=== PATIENT | female | born 1975 | race Caucasian/White ===

== ENCOUNTER 2017-10-11 10:36 | Emergency (ER) | payer OTHER ==
--- OUTSIDE RECORDS SUMMARY | 2017-10-11 10:38 | XMS REPORT | Clinical Summary ---
:1975 Author Organization [facility] Address [address] [place] [address] Care Team Providers Name Role Phone Asked, No Pcp Primary Care Provider Unavailable Allergies Active Allergy Reactions Severity Noted Date Comments Amoxicillin 09/30/2017 Erythromycin 09/30/2017 Current Medications Not on file Active Problems Not on file Encounters Date Type Specialty Care Team Description 10/01/2017 Emergency Emergency Medicine Hiram Jimenez Benzodiazepine abuse MD Javier (Primary Dx) 09/30/2017 Emergency Emergency Medicine Red Olson Anxiety ( Primary Dx); DO Medication refill after 10/10/2016 Social History Tobacco Use Types Packs/Day Years Used Date Current Every Day Smoker Smokeless Tobacco: Never Used Sex Assigned at Date Recorded Not on file Last Filed Vital Signs Vital Sign [place] Time Taken Blood Pressure 115/57 10/01/2017 11:12 AM [employer] Pulse 77 10/01/2017 11:12 AM [employer] Temperature 36.9 C (98.5 F) 10/01/2017 11:12 AM [employer] Respiratory Rate 18 10/01/2017 11:12 AM [employer] Oxygen Saturation 98% 10/01/2017 11:12 AM [employer] Inhaled Oxygen Concentration - - Weight - - Height 162.6 cm (5' 4") 10/01/2017 11:14 AM [employer] Body Mass Index - - Plan of Treatment Not on file Results ECG ED Preliminary Interpretation - NOT AN ORDER (10/01/2017 11:46 AM) Narrative Hiram Jimenez MD 10/02/20178:17 PM ECG ED Preliminary Interpretation - Not an Order Performed by: HIRAM JIMENEZ Authorized by: HIRAM JIMENEZ ECG reviewed by ED Physician in the absence of a calender wind up helper: yes Previous ECG: Previous ECG:Unavailable Interpretation: Interpretation: normal Rate: ECG rate:74 ECG rate assessment: normal Rhythm: Rhythm: sinus rhythm Ectopy: Ectopy: none QRS: QRS axis:Normal QRS intervals:Normal Conduction: Conduction: normal ST segments: ST segments:Normal T waves: T waves: normal ECG 12 lead (10/01/2017 11:21 AM)Only the most recent of2 resultswithin the time period is included. Component Value Ref Range Ventricular rate 74 Atrial rate 74 VA interval 184 QRSD interval 98 QT interval 428 QTC interval 475 P axis 1 29 QRS axis 1 7 T wave axis 12 EKG impression Normal sinus rhythm-Minimal voltage criteria for LVH, may be normal variant-Cannot rule out Anterior infarct , age undetermined-Abnormal ECG- In automated comparison with ECG of 30-SEP-2017 15:58,-No sig nificant change was found- Specimen Performing Laboratory [facility] [id number] [place] [address] after 10/10/2016 Insurance Payer Benefit Plan / Group Subscriber ID Type Phone Address MEDICAID MEDICAID xxxxxxxxx Medicaid Home: [id number] [phone] [place] [phone]
--- OUTSIDE RECORDS SUMMARY | 2017-10-11 10:38 | XMS REPORT ---
:1975 [facility] [address] [place] [address] Care Team Providers Name Role Phone UNKNOWN, REFFERING Primary Care Provider Unavailable Kyle RODAS Unavailable Unavailable ROBERTS, PHOEBE STORM Unavailable Unavailable Problems This patient has no known problems. Allergies, Adverse Reactions, Alerts This patient has no known allergies or adverse reactions. Medications This patient has no known medications. Encounters Start End Encounter Admission Attending Care Care Encounter Date/Time Date/Time Type Type Clinicians Facility Department ID 2017-10-22 2017-10-22 Outpatient [facility] [id number] 00:00:00 00:00:00 2017-10-01 2017-10-01 Emergency [facility] [id number] 13:59:00 13:59:00 CARA 2017-09-30 2017-09-30 Emergency [facility] [id number] 05:54:41 05:54:41 2017-09-29 2017-09-29 [facility] [id number] 18:37:00 18:37:00 2017-09-29 2017-09-29 Emergency E [facility] [id number] 16:00:00 16:00:00 Results Test Description Test Time Test Comments Text Results Atomic Results Result Comments BHCG, Serum, Qualitative 2017-10-01 16:02:00 Test Item Value Reference Range Comments Preg Qual [Se] (test code=BSHCG) Negative Negative Comprehensive Metabolic [id number] 16:01:00 Test Item Value Reference Range Comments Sodium (test code=NA) 141 mmol/L 135-145 Potassium (test code=K) 4.7 mmol/L 3.5-5.1 Chloride (test code=CL) 99 mmol/L 98-105 Carbon Dioxide (test 29 mmol/L 22-29 code=CO2) Glucose (test code=GLU) 148 mg/dL 70-115 Blood Urea Nitrogen 12 mg/dL 6-20 (test code=BUN) Creatinine (test 1.0 mg/dL 0.5-0.9 code=CREAT) Calcium (test code=CA) 9.9 mg/dL 8.3-10.5 Prot Total (test 8.5 g/dL 6.4-8.3 code=TP) Albumin (test code=ALB) 4.3 g/dL 3.5-5.2 A/G Ratio (test 1.0 Ratio code=AGRATIO) Globulin (test 4.2 2.9-3.1 code=GLOB) Bili Total (test 0.4 mg/dL 0.1-0.9 code=TBIL) Alk Phos (test 115 U/L 35-104 code=APHOS) AST (test code=AST) 20 U/L 1-32 ALT (test code=ALT) 21 U/L 1-33 BUN/Creatinine Ratio 12.0 (test code=BCRATIO) Anion Gap (test 13 mmol/L 7-16 code=AGAP) Estimated GFR (test >60 eGFR (estimated Glomerular code=GFR) mL/min/1.73m2 Filtration Rate) is an estimated value,calculated from the patient's serum creatinine using the MDRD equation.It is NOT the patient's actual GFR. The eGFR provides a more clinicallyuseful measure of kidney disease than serum creatinine alone.This calculation takes sex and race into account, if the informationis provided. If the race is not provided, and the patient isAfrican-Honduran, multiply by 1.212. If sex is not provided, and thepatient is female, multiply by 0.742. Results for patients <18 years ofage have not been validated by the MDRD study and should be interpretedwith caution.eGFR Result Interpretation:eGFR > or=60 is in the Normal RangeeGFR < 60 may mean kidney diseaseeGFR < 15 may mean kidney failureRanges recommended by the National Kidney Foundation,http://nkdep.ni h.gov CBC with [id number] 15:19:00 Test Item Value Reference Range Comments WBC (test code=WBC) 8.8 K/cumm 4.4-10.5 RBC (test code=RBC) 4.66 M/cumm 3.75-5.20 Hemoglobin (test code=HGB) 13.9 gm/dL 12.2-14.8 Hematocrit (test code=HCT) 42.3 % 36.5-44.4 MCV (test code=MCV) 90.7 fL 80-100 MCH (test code=MCH) 29.8 pg 27.0-32.5 MCHC (test code=MCHC) 32.8 g/dL 32.0-37.5 RDW (test code=RDW) 13.1 % 11.5-14.5 Platelet Count (test code=PLTCT) 467 K/cumm 140-440 MPV (test code=MPV) 7.6 fL Diff Method (test code=DIFFM) Auto Neutrophil (test code=NEUT) 66.9 % 36-70 Lymphocyte (test code=LYMPH) 26.7 % 12-44 Monocyte (test code=MONO) 5.2 % 0-11 Eosinophil (test code=EOS) 0.6 % 0-7 Basophil (test code=BASO) 0.5 % 0-2 Neutro Abs (test code=ANEUT) 5.9 K/cumm 1.6-7.4 Lymph Abs (test code=ALYMPH) 2.3 K/cumm 0.5-4.6 [place] Abs (test code=AMONO) 0.5 K/cumm 0.0-1.2 Eos Abs (test code=AEOS) 0.05 K/cumm 0.00-0.74 Baso Abs (test code=ABASO) 0.1 K/cumm 0.00-0.21 TISSUE [id number] 08:45:00Surgical Pathology Report Case: [id number] Authorizing Provider: Kelsie Roberts MD Collected: 04/03/2017 9686 Ordering Location: [facility] Received: 04/03/2017 1404 SERVICES Pathologist: Noris Rogers MD Specimens: A) - Ovary, Left, LEFT OVARY B) - Uterus w/Cervix & Right Fallopian Tube, UTERUS, CERVIX, RIGHT FALLOPIAN C) - Appendix, APPENDIX D) - Lymph Node, Para- Aortic, Right, Station 6R, PARA AORTIC RIGHT STATION 6R E) - Lymph Node, Pelvic, Left, LEFT PELVIC LYMPH NODE F) - Lymph Node, Para-Aortic, Left, Station 6L, PARA AORTIC LEFT STATION 6L G) - Omentum, OMENTUM H) - Lymph Node, Pelvic , Right, RIGHT PELVIC LYMPH NODE I) - Cul-de-sac, ANTERIOR CUL-DE-SAC J) - Cul-de-sac, POSTERIOR CUL-DE-SAC K) - Pelvis, Right, RIGHT PELVIC SIDE-WALL L) - Pelvis, Left, LEFT PELVIC SIDE WALL M) - Abdomen, Left, LEFT PARA-COLIC N) - Abdomen, Right, RIGHT PARA-COLIC O) - Ovary, Right A. OVARY AND FALLOPIAN TUBE, LEFT, SALPINGOOOPHORECTOMY: -OVARY: SEROUS BORDERLINE TUMOR SEE TUMOR SYNOPSIS BELOW FOR DETAILS - FALLOPIAN TUBE : PARATUBAL CYSTS NEGATIVE FOR TUMORB. UTERUS AND CERVIX WITH RIGHT FALLOPIAN TUBE, HYSTERECTOMY AND SALPINGECTOMY: - ENDOMETRIUM: SECRETORY ENDOMETRIUM - MYOMETRIUM: ADENOMYOSIS - CERVIX: NABOTHIAN CYSTS - RIGHT FALLOPIAN TUBE: PARATUBAL CYSTSC. 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 LYMPH NODE, RIGHT PARAAORTIC STATION 6R, EXCISION: ENDOSALPINGIOSIS INVOLVING ONE LYMPH NODE, NEGATIVE FOR TUMOR (0/1)E. LYMPH NODE , LEFT PELVIC, EXCISION: FIFTEEN LYMPH NODES, NEGATIVE FOR TUMOR (0/15)F. LYMPH NODE, PARAAORTIC LEFT STATION 6L, EXCISION: FOUR LYMPH NODES, NEGATIVE FOR TUMOR(0/4)G. OMENTUM, OMENTECTOMY: FIBROADIPOSE TISSUE, NEGATIVE FOR TUMORH. LYMPH NODE, RIGHT PELVIC,EXCISION: EIGHTEEN LYMPH NODES, NEGATIVE FOR TUMOR (0/18)I. ANTERIOR CUL-DE-SAC, BIOPSY: FIBROCONNECTIVE AND FIBROADIPOSE TISSUE, NEGATIVE FOR TUMORJ. POSTERIOR CUL-DE-SAC, BIOPSY: FIBROCONNECTIVE AND FIBROADIPOSE TISSUE, NEGATIVE FOR TUMORK. RIGHT PELVIC SIDE WALL, BIOPSY: FIBROCONNECTIVE AND FIBROADIPOSE TISSUE, NEGATIVE FOR TUMORL. LEFT PLEVIC SIDE WALL, BIOPSY: FIBROCONNECTIVE AND FIBROADIPOSE TISSUE, NEGATIVE FOR TUMORM. LEFT PARACOLIC, BIOPSY: FIBROCONNECTIVE AND FIBROADIPOSE TISSUE, NEGATIVE FOR TUMORN. RIGHT PARACOLIC, BIOPSY: FIBROCONNECTIVE AND FIBROADIPOSE TISSUE, NEGATIVE FOR TUMORO. OVARY, RIGHT, OOPHORECTOMY: HEMORRHAGIC CORPUS LUTEAL CYST CYSTIC FOLLICLES EPITHELIAL INCLUSION CYSTSMG/pl Signing Pathologist Direct Phone Line: [phone] signed by Noris Rogers MD on 04/09/2017 at 8:45 AMOVARY: Oophorectomy, Salpingo-Oophorectomy, Subtotal Oophorectomy or Removal of Tumor in Fragments, Hysterectomy with Salpingo-Oophorectomy (Ovary - All Specimens) Specimen: OvarySPECIMEN Procedure: Bilateral salpingo -oophorectomy Procedure: Hysterectomy Procedure: Omentectomy Procedure: Peritoneal biopsies Lymph Node Sampling: Performed Right ovary: Fragmented Left ovary: Capsule intactPrimary Tumor Site (Notes C , D, and E): Left ovaryTUMOR Histologic Type (Notes F and G): Serous, borderline tumor Subtype of Serous, Borderline Tumor: Borderline only World Health Organization (WHO) Grading System (applies to all carcinomas, including serous carcinomas): GX: Cannot be assessed: Not applicableEXTENT Tumor Size: Left Ovary Tumor Size Tumor Size - Left Ovary: Greatest dimension (cm): 10 cm Ovarian Surface Involvement: Absent Implants (only applies to advanced stage serous / seromucinous borderline tumors) (Note I): Noninvasive Implant(s): Not present Invasive Implant(s): Not present Organs Submitted: Right ovary Right Ovary - Extent: Not involved Organs Submitted: Left ovary Left Ovary - Extent: Involved Organs Submitted: Right fallopian tube Right Fallopian Tube - Extent: Not involved Organs Submitted: Left fallopian tube Left Fallopian Tube - Extent: Not involved Organs Submitted: Uterus Uterus - Extent : Not involved Organs Submitted: Cervix Cervix - Extent: Not involved Organs Submitted: Omentum Omentum - Extent: Not involved Organs Submitted: Peritoneum Peritoneum - Extent: Not involved Organs Submitted: Other organs/ tissues (specify): Appendix Other - Extent: Not involvedACCESSORY FINDINGS Lymph-VascularInvasion (Note J): Not identifiedSTAGE (pTNM [FIGO]) (Note K) Primary Tumor (pT): pT1a [IA]: Tumor limited to one ovary; capsule intact, no tumor on ovarian surface. No malignant cells in ascites or peritoneal washings# Regional Lymph Nodes (pN): pN0: No regional lymph node metastasis Number of Lymph Nodes Examined: Specify: 38 Number of Lymph Nodes Involved: Specify: 0 Distant Metastasis (pM): Not applicableAPPENDIX, Neuroendocrine Tumor (Carcinoid Tumors): Excision (Appendectomy) or Resection (Appendix NET - C)SPECIMEN Specimen: Appendix Procedure: Appendectomy Specimen Integrity: Intact Specimen Size: Specify Length (cm): 5.5 cm Tumor Site: Distal half of appendixTUMOR Histologic Type and Grade: Well-differentiated neuroendocrine tumor; G1: Low grade (carcinoid)EXTENT Tumor Size: Greatest dimension (cm): 1.0 cm Microscopic Tumor Extension: Tumor extends into mesoappendixMARGINS Status of Margin Involvement: Allmargins uninvolved by neuroendocrine tumor Distance of Tumor From Closest Margin: Specify (cm) : 4.0 cm Specify Margin: Proximal Proximal Margin: Uninvolved by tumor Mesenteric (Mesoappendiceal) Margin: Uninvolved by tumor Distance of Tumor From Closest Mesenteric Margin:Cannot be determined (explain) : Incidental tumor finding. Exact distance cannot be determined. ACCESSORY FINDINGS Mitotic Rate: Specify mitoses per 10 high-power frost (HPF): 0 Lymph-Vascular Invasion: Not identified Perineural Invasion: PresentSPECIAL STUDIES Ancillary Studies: Ki-67 labeling index Ki-67 Labeling Index: <=2%STAGE (pTNM) Primary Tumor (pT): pT1a: Tumor 1 cm or less in greatest dimension Regional Lymph Nodes: Cannot be assessed Status of Regional Lymph Nodes: No nodes submitted or found Distant Metastasis: Not [id number]; 24177 X4; 56954; 66884 x10; 13584; 53560, 34539Lzcorndihgegaxvh, pelvic pain, ovarian cystA. Ovary, left; B. Uterus with cervix, right fallopian tube; C. Appendix; D. Lymph node, paraaortic right station 6R; E. Lymph node pelvic left; F. Lymph node paraaortic left, station 7L ; G. Omentum; H. Lymph node, pelvic right; I. Lymph node anterior cul-de-sac; J. Lymph node, posterior cul-de-sac, K. Lymph node, right pelvic sidewall; L. Lymph node, left pelvic side wall; M. Lymph node, left paracolic; N. Lymph node , right paracolic; 0. Ovary, rightSpecimen A is received in a container designated as "ovary left"and consists of cystically dilated ovary (10.0 x 9.0 x 2.5 cm) with attached fallopian tube and fimbriated end (6.0 cm in length and 1.0 cm in diameter). The outer surface of the ovary is smooth with no obvious tumor on the surface. Sectioning through the ovary reveals a cystic lesion that is filled with pink clear serous fluid. Abundant papillary excrescences are present on the surface. No solid areas are identified. The fallopian tube has possible papillary excrescences on the surface versus a paratubal cyst. Sectioning reveals patent pinpoint lumen. A jewelry sales representative section of the ovarian cyst wall is submitted for frozen section and the frozen section tissue remnants are submitted into A1.Section code: A2, fimbriated end entirely submitted; A3 to A4, remainder of fallopian tube, entirely submitted; A5 to A12 , jewelry sales representative sections of cyst wall.Specimen B is received in a container designated as "uterus with cervix, right fallopian tube". It consists of a hysterectomy specimen (106 gm, 2.0cm superior to inferior, 6.5 cm cornu to cornu and 3.5 cm anterior to posterior) with attached rightfallopian tube (5.5 cm in length and 1.0 cm in diameter). The ectocervix is blue-hampton and is 3.7 x 3.7 cm and has a slit-like os that is 1.0 cm. The endometrium is red-brown and has a thickened endometrium that may represent multiple endometrial polyps ranging in size from 0.2 to 0.5 cm in greatest dimension. The myometrium is pink -hampton mildly trabeculated and 2.5 cm in greatest thickness. No discrete lesions are identified. The right fallopian tube has small paratubal cyst versus papillary surfaces located on the exterior surface toward the fimbria. Sectioning reveals patent pinpoint lumen.Section code: B1, anterior cervix; B2, posterior cervix; B3, possible cervical polyp; B4, possible endometrialpolyp, anterior, entirely submitted; B5 through B6, possible endometrial polyp, posterior aspect, entirely submitted; B7 through B9, other possible endometrial polyp entirely submitted, posterior aspect; B10, fimbriated end entirely submitted; B11 through 13, fallopian tube entirely submitted. MG/pl Specimen C is received in fixative and designated as "appendix", complains of an appendectomy specimen( 5.5 cm in length and 0.5 cm in diameter). Sectioning reveals a pinpoint lumen. The serosa is smooth and no adhesions or obvious perforations are identified. Electrical Equipment Assembler cross sections are submitted into C1 and the distal tip is submitted into C2. Specimen D is received in fixative and designated as "lymph node, paraaortic right", consists of yellow-hampton fibrofatty tissue (3.5 x 2.5 x 1.0 cm). Sectioning reveals one lymph node. The specimen is serially sectioned and entirely submitted into D1 through D3. Specimen E is received in fixative and designated as "lymph node, pelvic left" and consists of fibrofatty tissue (5.0 x 5.0 x 1.5 cm). Multiple possible lymph nodes are identified ranging in size from 1.0 to 2.0 cm in greatest dimension. Section code: E1, two possible lymph node; E2, three possible lymph nodes; E3, one possible lymph node bisected; E4 to E5, one possible lymph node bisected; E6 , two possible lymph node; E7, one possible lymph node bisected; E8, one possible lymph node trisected; A9 to A10, remainder of fibroadipose tissue.Specimen F is received in fixative and designated as"lymph node, paraaortic, left" and consists of three pink-hampton fibrofatty tissue fragments ranging insize from 2.0 to 2.5 cm in greatest dimension. Sectioning reveals two possible lymph node ranging insize from 1.0 to 1.3 cm in greatest dimension. Section code: F1, two possible lymph nodes; F2, remainder of fibrofatty tissue.Specimen G is received in fixative and designated as "omentum" and consistsof yellow-hampton fibrofatty tissue (9.0 x 5.0 x 1.5 cm). Sectioning does not reveal any discrete lesion. Electrical Equipment Assembler sections are submitted into G1 through G4. Specimen H is received in fixative and designated as "lymph node, pelvic, right" and consists of multiple fibrofatty tissue fragments measuring 6.5 x 4.0 x 1.8 cm in aggregate. Multiple possible lymph nodes are identified ranging in size from 0.5 to 1.5 cm in greatest dimension. Section code: H1, six possible lymph nodes; H2, three possible lymph nodes; H3, one possible lymph node bisected; H4, one possible lymph node bisected; H5, one possible lymph node bisected; H6, one possible lymph node bisected; H7, one possible lymph node bisected; H8, remainder of the fibrofatty tissue. Specimen I is received in fixative and designated as "anterior cul-de-sac" and consists of pink-hampton tissue fragments that is 1.0 x 0.8 x 0.5 cm. The specimen is bisected and entirely submitted into I1. Specimen J is received in fixative and designated as "posterior cul-de-sac" consists of a pink-hampton tissue fragment that is 0.5 x 0.5 x 0.5 cm. The specimen is entirely submitted it J1. Specimen K is received in fixative and designated as "right pelvic sidewall' consists of jefferson-hampton tissue fragment (1.0 x 0.8 x 0.5 cm). The specimen is bisected and submitted intoK1.Specimen L is received in fixative and designated as "left pelvic sidewall" consists of a pink-hampton tissue fragment (1.5 x 1.0 x 0.5 cm). The specimen is entirely submitted into L1. Specimen M is received in fixative and designated as "left paracolic" consists of a yellow-hampton fibroadipose tissue fragment (1.0 x 1.0 x 0.5 cm). The specimen is bisected and submitted into M1. Specimen N is received infixative and designated as "right paracolic" consists of yellow-hampton fibroadipose tissue (1.5 x 1.0 x0.5 cm). The specimen is entirely submitted into N1. Specimen O is received in fixative and designated as "right ovary" consists of multiple fragments of ovarian tissue (5.5 x 5.0 x 2.0 cm). The ovarian surface is disrupted. Cut surface of the ovary shows a polycystic ovarian parenchyma. resolved are submitted into O1 to O5. MG/pl OVARY, LEFT, FSA1: - AT LEAST SEROUS BORDERLINE TUMOR ON HOME PERFORMANCE LABORER SECTION - SIGNED OUT BY DR. ROGERS AND REPORTED DIRECTLY TO THE SURGEON - SPECIMEN CAME IN ON JUL 03, 2017 AT 2:01 P.M. AND WAS SIGNED OUT ON JUL 03, 2017 AT 2:15 P.M.A-O: Performed The following special studies were performed on this case with appropriate and reactive controls on block C2 and theinterpretation is incorporated in the diagnostic report above:Synaptophysin: PositiveChromogranin : BzibckctCw59: 1%The immunohistochemistry test was developed and its performance characteristics determined by [facility], Pathology Laboratory. It has not been cleared or approved by the U.S. Food and Drug Administration. The FDA has determined that such clearance or approval is not necessary. The test is used for clinical purposes. It should not be regarded as investigational or for research. This laboratory is certified under the Clinical Laboratory Improvement Amendments of 1988 (CLIA-88) as qualified to perform high complexity clinical laboratory testing.[facility], Department of Pathology, [address] [place] [address], [facility] , [address] [place] [address], [place]. [facility], Department of Pathology, [address] [place] [address], [id number] 13:33:00Medical Cytology Report Case: [id number] Authorizing Provider: Kelsie Roberts MD Collected: 2016 1519 Ordering Location: [facility] Received : 04/06/2017 0820 SERVICES Pathologist: Noris Rogers MD Specimen: Abdomen, Left LEFT DIAPHRAGMATIC WASHING (CYTOSPINS): - PREDOMINANTLY BLOOD; NO MALIGNANT CELLS IDENTIFIED Please also see surgical pathology report [id number] and cytopathology reports [id number] and 146. [id number]; pelvic pain; ovarian cystLEFTDIAPHRAGMATIC WASHING4 cytospins prepared from 15 ml bloody fluidCollected: [id number]: [id number]. [facility], Department of Pathology, [address] [place] [address], [place]. [facility], Department of Pathology, [address] [place] [address], [id number] 13:29:00Medical Cytology Report Case: [id number] Authorizing Provider: Kelsie Roberts MD Collected: 2016 1514 Ordering Location: [facility] Received : 04/06/2017 0817 SERVICES Pathologist: Noris Rogers MD Specimen: Abdomen, Right RIGHT DIAPHRAGMATIC WASHING (CYTOSPINS): - SCANT CELLULARITY; NO MALIGNANT CELLS IDENTIFIED Please also see surgical pathology report [id number] and cytopathology reports [id number] and 147. [id number]; pelvic pain; ovarian cystRIGHTDIAPHRAGMATIC WASHING4 cytospins prepared from 1 cc bloody fluidCollected: [id number]: [id number]. [facility], Department of Pathology, [address] [place] [address], [place]. [facility], Department of Pathology, [address] [place] [address], [id number] 13:27:00Medical Cytology Report Case: [id number] Authorizing Provider: Kelsie Roberts MD Collected: 2016 1315 Ordering Location: [facility] Received : 04/03/2017 1342 SERVICES Pathologist: Noris Rogers MD Specimen: Abdominal Cavity ABDOMINAL CAVITY WASHING (CYTOSPINS): - NO MALIGNANT CELLS IDENTIFIED Please also see surgical pathology report [id number] and cytopathology reports [id number] and 147. [id number]; pelvic pain; ovarian cystABDOMINAL CAVITY WASHINGS4 cytospins prepared from 28 ml colorless fluidCollected: [id number]: [id number] [facility], Department of [facility]ology, [address] [place], [place] [id number], Tel . [facility], Department of Pathology, [address] [place] [address], [id number] 06 :21:00 Test Item Value Reference Range Comments SODIUM (BEAKER) (test pjdk=818) 136 meq/L 135-148 POTASSIUM (BEAKER) (test jvmv=337) 3.9 meq/L 3.6-5.5 CHLORIDE (BEAKER) (test iclp=313) 104 meq/L 98-106 CO2 (BEAKER) (test fwuv=799) 21 meq/L 20-29 SCREEN, [id number] 10:58:00 Test Item Value Reference Range Comments TEST URINE (BEAKER) (test epub=411) Negative BASIC METABOLIC [id number] 12:28:00 Test Item Value Reference Range Comments SODIUM (BEAKER) (test 139 meq/L 135-148 oirc=164) POTASSIUM (BEAKER) (test 4.6 meq/L 3.6-5.5 jujk=892) CHLORIDE (BEAKER) (test 104 meq/L 98-106 cyip=483) CO2 (BEAKER) (test 25 meq/L 20-29 zlzc=443) BLOOD UREA NITROGEN 14 mg/dL 10-26 (BEAKER) (test uxoq=448) CREATININE (BEAKER) (test 1.10 mg/dL 0.50-1.20 nanq=889) GLUCOSE RANDOM (BEAKER) 120 mg/dL 70-110 (test knxv=429) CALCIUM (BEAKER) (test 9.4 mg/dL 8.5-10.5 lpew=357) EGFR (BEAKER) (test 55 mL/min/1.73 sq m ESTIMATED GFR IS NOT iizz=1754) ACCURATE CREATININE CLEARANCE IN PREDICTING GLOMERULAR FILTRATION RATE. ESTIMATED GFR IS NOT APPLICABLE FOR DIALYSIS PATIENTS. CBC W/PLT COUNT & AUTO [id number] 12:14:00 Test Item Value Reference Range Comments WHITE BLOOD CELL COUNT (BEAKER) (test canc=797) 9.1 K/ L 4.0-10.0 RED BLOOD CELL COUNT (BEAKER) (test skbr=213) 4.55 M/ L 4.00-5.00 HEMOGLOBIN (BEAKER) (test ayau=645) 14.2 GM/DL 12.0-15.0 HEMATOCRIT (BEAKER) (test qjcz=730) 43.5 % 36.0-45.0 MEAN CORPUSCULAR VOLUME (BEAKER) (test dqvf=204) 95.7 fL 82.0-99.0 MEAN CORPUSCULAR HEMOGLOBIN (BEAKER) (test 31.2 pg 27.0-33.0 bsie=783) MEAN CORPUSCULAR HEMOGLOBIN CONC (BEAKER) (test 32.6 GM/DL 32.0-36.0 ngjy=830) RED CELL DISTRIBUTION WIDTH (BEAKER) (test 15.3 % 10.3-14.2 eeqp=304) PLATELET COUNT (BEAKER) (test mtyd=686) 481 K/CU MM 150-430 MEAN PLATELET VOLUME (BEAKER) (test wxej=724) 9.6 fL 6.5-10.5 NUCLEATED RED BLOOD CELLS (BEAKER) (test 0 /100 WBC 0-0 uwwn=889) NEUTROPHILS RELATIVE PERCENT (BEAKER) (test 55 % lbld=537) LYMPHOCYTES RELATIVE PERCENT (BEAKER) (test 35 % cvhq=181) MONOCYTES RELATIVE PERCENT (BEAKER) (test 7 % ywjq=725) EOSINOPHILS RELATIVE PERCENT (BEAKER) (test 4 % cwna=526) BASOPHILS RELATIVE PERCENT (BEAKER) (test 0 % qbmc=492) NEUTROPHILS ABSOLUTE COUNT (BEAKER) (test 5.00 K/ L 1.80-8.00 fdsx=334) LYMPHOCYTES ABSOLUTE COUNT (BEAKER) (test 3.20 K/ L 1.48-4.50 lpue=793) MONOCYTES ABSOLUTE COUNT (BEAKER) (test 0.60 K/ L 0.00-1.30 pzba=075) EOSINOPHILS ABSOLUTE COUNT (BEAKER) (test 0.30 K/ L 0.00-0.50 ndza=578) BASOPHILS ABSOLUTE COUNT (BEAKER) (test 0.00 K/ L 0.00-0.20 xunq=053)
--- NOTE | 2017-10-11 11:38 | ER ---
Nurse's Notes [facility] Name: Kaycee Porter Age: 42 yrs Sex: Female : 1975 Arrival Date: 10/11/2017 Time: 10:41 Bed 17 Private MD: Diagnosis: Anxiety disorder, unspecified Presentation: 10/11 10:44 Presenting complaint: Patient states: She ran out of her clonazepam and propranolol, aj1 last took her propranolol last night, last took clonazepam 2 days ago. Since running out of her meds her anxiety has gotten out of control. Appears anxious, crying, states "I feel like something's racing in my head, like electricity and it makes me sensitive to light and sound" States that she has an appointment tomorrow with Dr. Boston, but could not wait any longer. States she has been taking hydroxyzine, but it has not helped. Denies suicidal or homicidal ideation. Transition of care: patient was not received from another setting of care. Onset of symptoms was October 09, 2017. Care prior to arrival: None. 10:44 Method Of Arrival: EMS: [facility] aj1 10:44 Acuity: KARLA 4 aj1 Triage Assessment: 10:50 General: Appears distressed, uncomfortable, Behavior is cooperative, anxious, crying. aj1 Pain: Denies pain. 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 aj1 Historical: - Allergies: 10:50 Amoxicillin; aj1 10:50 Erythromycin; aj1 - Home Meds: 10:50 clonazepam 2 mg Oral tab 1 tab 3 times per day [Active]; clonidine HCl 0.2 mg Oral tab aj1 1 tab 2 times per day [Active]; Effexor Oral 150 mg daily [Active]; propranolol 40 mg Oral tab 1 tab 3 times per day [Active]; hydroxyzine HCl 25 mg Oral tab 1 tab every 8 hours as needed [Active]; - PMHx: 10:50 Anxiety; Bipolar disorder; cancer-ovarian; Depression; Hypertension; shasta; Overdose; R aj1 sided ovary mass; Tachycardia; - PSHx: 10:50 Hysterectomy; Appendectomy; ; aj1 - Immunization history:: Flu vaccine is not up to date. - Social history:: Smoking status: Patient uses tobacco products, smokes 1 pack per 4-5 days. Screenin:52 Abuse screen: Denies threats or abuse. Denies injuries from another. Nutritional aj1 screening: No deficits noted. Tuberculosis screening: No symptoms or risk factors identified. 11:52 Fall Risk None identified. aj1 Assessment: 10:52 General: Appears distressed, uncomfortable, Behavior is cooperative, anxious, crying. aj1 Pain: Denies pain. Neuro: Level of Consciousness is awake, alert, obeys commands, Oriented to person, place, time, situation, Speech is normal, Facial symmetry appears normal. Cardiovascular: Patient's skin is warm and dry. Rhythm is regular. Respiratory: Airway is patent Respiratory effort is even, unlabored, Respiratory pattern is regular, symmetrical. GI: No signs and/or symptoms were reported involving the gastrointestinal system. : No signs and/or symptoms were reported regarding the genitourinary system. EENT: No signs and/or symptoms were reported regarding the EENT system. Derm: No signs and/or symptoms reported regarding the dermatologic system. Skin is pink, warm \\T\\ dry. normal. Musculoskeletal: No signs and/or symptoms reported regarding the musculoskeletal system. Circulation, motion, and sensation intact. 11:52 Reassessment: Patient appears in no apparent distress at this time. No changes from aj1 previously documented assessment. Patient and/or family updated on plan of care and expected duration. Pain level reassessed. Patient is alert, oriented x 3, equal unlabored respirations, skin warm/dry/pink. Vital Signs: 10:50 BP 123 / 72; Pulse 85; Resp 20; Pulse Ox 100% on R/A; Weight 81.65 kg; Height 5 ft. 5 aj1 in. (165.10 cm); Pain 0/10; 10:59 BP 117 / 69; Pulse 76; Resp 15; Pulse Ox 97% on R/A; mh5 11:52 BP 112 / 65; Pulse 72; Resp 18; Temp 97.5; Pulse Ox 100% on R/A; aj1 10:50 Body Mass Index 29.95 (81.65 kg, 165.10 cm) aj1 ED Course: 10:41 Patient arrived in ED. iw 10:44 Mala Humphrey, RN is Primary Nurse. aj1 10:48 Triage completed. aj1 10:50 Arm band placed on. aj1 10:52 Patient has correct armband on for positive identification. Bed in low position. Call aj1 light in reach. Side rails up X 1. 10:52 No provider procedures requiring assistance completed. aj1 10:56 Parris Martin FNP-C is [facility]. kb 10:57 Víctor Eubanks MD is Attending Physician. kb 11:52 Patient did not have IV access during this emergency room visit. aj1 Administered Medications: 11:34 Drug: KLONopin 2 mg Route: PO; aj1 11:52 Follow up: Response: No adverse reaction aj1 Outcome: 11:38 Discharge ordered by . kb 11:52 Discharged to home ambulatory. aj1 11:52 Condition: good 11:52 Discharge instructions given to patient, Instructed on discharge instructions, follow up and referral plans. medication usage, Demonstrated understanding of instructions, follow-up care, medications, Prescriptions given X 2. 12:17 Patient left the ED. aj1 Signatures: Parris Martin FNP-C FNP-Ckb Johnson, Angela, RN RN [facility] Naomi Duncan RN RN Noris Senior [facility] Corrections: (The following items were deleted from the chart) 10:54 10:44 Presenting complaint: Patient states: She ran out of her clonazepam and aj1 propranolol, last took her propranolol last night, last took clonazepam 2 days ago. Since running out of her meds her anxiety has gotten out of control. Appears anxious, crying, states "I feel like something's racing in my head, like electricity and it makes me sensitive to light and sound" States that she has an appointment tomorrow with Dr. Boston, but could not wait any longer aj1
--- NOTE | 2017-10-11 11:39 | EDPHYS ---
Physician Documentation [facility] Name: Kaycee Porter Age: 42 yrs Sex: Female : 1975 Arrival Date: 10/11/2017 Time: 10:41 Bed 17 Private MD: ED Physician Víctor Eubanks HPI: 10/11 11:12 This 42 yrs old Female presents to ER via EMS with complaints of Anxiety. kb 11:13 The patient presents to the emergency department with anxiety, over a relationship, has kb had a recent break-up. Onset: The symptoms/episode began/occurred today. Past psychiatric history: Psychiatric medications include: Klonipin, the patient has not had a prior suicide gesture, the patient does not have a previous inpatient psychiatric history. Associated signs and symptoms: Pertinent positives; anxiety. Severity of symptoms: At their worst the symptoms were moderate in the emergency department the symptoms are unchanged. The patient has not experienced similar symptoms in the past. The patient has not recently seen a physician. Pt states she recently had to leave her and is living in the senior care. States she takes propanolol and clonazepam normally for anxiety, but ran out and her anxiety is getting worse. States she is going to see Dr Boston for refills tomorrow, but couldn't take the anxiety anymore. Denies homicidal or suicidal ideations. . 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 aj1 Historical: - Allergies: 10:50 Amoxicillin; aj1 10:50 Erythromycin; aj1 - Home Meds: 10:50 clonazepam 2 mg Oral tab 1 tab 3 times per day [Active]; clonidine HCl 0.2 mg Oral tab aj1 1 tab 2 times per day [Active]; Effexor Oral 150 mg daily [Active]; propranolol 40 mg Oral tab 1 tab 3 times per day [Active]; hydroxyzine HCl 25 mg Oral tab 1 tab every 8 hours as needed [Active]; - PMHx: 10:50 Anxiety; Bipolar disorder; cancer-ovarian; Depression; Hypertension; shasta; Overdose; R aj1 sided ovary mass; Tachycardia; - PSHx: 10:50 Hysterectomy; Appendectomy; ; aj1 - Immunization history:: Flu vaccine is not up to date. - Social history:: Smoking status: Patient uses tobacco products, smokes 1 pack per 4-5 days. ROS: 11:18 Constitutional: Negative for fever, chills, and weight loss, ENT: Negative for injury, kb pain, and discharge, Neck: Negative for injury, pain, and swelling, Cardiovascular: Negative for chest pain, palpitations, and edema, Respiratory: Negative for shortness of breath, cough, wheezing, and pleuritic chest pain, Abdomen/GI: Negative for abdominal pain, nausea, vomiting, diarrhea, and constipation, Back: Negative for injury and pain, : Negative for injury, bleeding, discharge, and swelling, MS/Extremity: Negative for injury and deformity, Skin: Negative for injury, rash, and discoloration, Neuro: Negative for headache, weakness, numbness, tingling, and seizure. 11:18 Psych: Positive for anxiety, Negative for depression, drug dependence, alcohol dependence, auditory hallucinations, visual hallucinations, homicidal ideation, insomnia, suicide gesture, suicidal ideation. Exam: 11:18 Constitutional: This is a well developed, well nourished patient who is awake, alert, kb and in no acute distress. Head/Face: Normocephalic, atraumatic. ENT: Nares patent. No nasal discharge, no septal abnormalities noted. Tympanic membranes are normal and external auditory canals are clear. Oropharynx with no redness, swelling, or masses, exudates, or evidence of obstruction, uvula midline. Mucous membranes moist. Neck: Trachea midline, no thyromegaly or masses palpated, and no cervical lymphadenopathy. Supple, full range of motion without nuchal rigidity, or vertebral point tenderness. No Meningismus. Chest/axilla: Normal chest wall appearance and motion. Nontender with no deformity. No lesions are appreciated. Cardiovascular: Regular rate and rhythm with a normal S1 and S2. No gallops, murmurs, or rubs. Normal PMI, no JVD. No pulse deficits. Respiratory: Lungs have equal breath sounds bilaterally, clear to auscultation and percussion. No rales, rhonchi or wheezes noted. No increased work of breathing, no retractions or nasal flaring. Abdomen/GI: Soft, non-tender, with normal bowel sounds. No distension or tympany. No guarding or rebound. No evidence of tenderness throughout. Skin: Warm, dry with normal turgor. Normal color with no rashes, no lesions, and no evidence of cellulitis. MS/ Extremity: Pulses equal, no cyanosis. Neurovascular intact. Full, normal range of motion. Neuro: Awake and alert, GCS 15, oriented to person, place, time, and situation. Cranial nerves II-XII grossly intact. Motor strength 5/5 in all extremities. Sensory grossly intact. Cerebellar exam normal. Normal gait. 11:18 Psych: Behavior/mood is cooperative, anxious, tearful. Affect is calm, Oriented to person, place, time, Patient has no thoughts/intents to harm self or others. Judgement / Insight is normal. Memory is normal. Delusions/hallucinations are not present. Vital Signs: 10:50 BP 123 / 72; Pulse 85; Resp 20; Pulse Ox 100% on R/A; Weight 81.65 kg; Height 5 ft. 5 aj1 in. (165.10 cm); Pain 0/10; 10:59 BP 117 / 69; Pulse 76; Resp 15; Pulse Ox 97% on R/A; mh5 11:52 BP 112 / 65; Pulse 72; Resp 18; Temp 97.5; Pulse Ox 100% on R/A; aj1 10:50 Body Mass Index 29.95 (81.65 kg, 165.10 cm) aj1 MDM: 10:57 Patient medically screened. kb 11:18 Data reviewed: vital signs, nurses notes. Data interpreted: Pulse oximetry: on room air kb is 97 %. Interpretation: normal. Counseling: I had a detailed discussion with the patient and/or guardian regarding: the historical points, exam findings, and any diagnostic results supporting the discharge/admit diagnosis, the need for outpatient follow up, a family practitioner, to return to the emergency department if symptoms worsen or persist or if there are any questions or concerns that arise at home. 11:38 ED course: Medication dosages confirmed with pharmacy for clonazepam and propranolol. kb Administered Medications: 11:34 Drug: KLONopin 2 mg Route: PO; aj1 11:52 Follow up: Response: No adverse reaction aj1 Disposition: 10/12 10:40 Co-signature as Attending Physician, Víctor Eubanks MD I agree with the assessment and cruz plan of care. Disposition: 10/11/17 11:38 Discharged to Home. Impression: Anxiety disorder, unspecified. - Condition is Stable. - Discharge Instructions: Generalized Anxiety Disorder. - Prescriptions for Klonopin 2 mg Oral tablet - take 1 tablet by ORAL route 3 times per day As needed; 6 tablet. Propranolol 40 mg Oral Tablet - take 1 tablet by ORAL route 3 times per day; 6 tablet. - Medication Reconciliation Form, Thank You Letter, Antibiotic Education, Prescription Opioid Use form. - Follow up: Emergency Department; When: As needed; Reason: Worsening of condition. Follow up: Private Physician; When: 2 - 3 days; Reason: Recheck today's complaints, Continuance of care, Re-evaluation by your physician. Signatures: Parris Martin FNP-C FNP-Mala Padron RN RN aj1 Víctor Eubanks MD MD cha Corrections: (The following items were deleted from the chart) 10/11 11:18 11:13 Pt states she recently had to leave her and is living in the senior care. kb States she takes propanolol and clonazepam normally for anxiety, but ran out and her anxiety is getting worse. States she is going to see Dr Boston for refills tomorrow, but couldn't take the anxiety anymore. . kb
[2017-10-11] MEDS ORDERED: clonazePAM 0.5 MG TAB ONE (11:48)
[2017-10-11 12:30] VITALS: BP 112/65; TEMP 97.5; O2SAT 100
== END 2017-10-11 12:17 | disposition home or self-care (01) ==
LOC: ER 10:36
DX: F41.9 Anxiety disorder, unspecified (principal); I10 Essential (primary) hypertension; F31.9 Bipolar disorder, unspecified; Z85.43 Personal history of malignant neoplasm of ovary; F17.210 Nicotine dependence, cigarettes, uncomplicated; Z88.1 Allergy status to other antibiotic agents; Z88.3 Allergy status to other anti-infective agents
CPT/HCPCS: 99283

== ENCOUNTER 2017-10-12 10:06 | Emergency (ER) | payer SELFPAY ==
--- OUTSIDE RECORDS SUMMARY | 2017-10-12 10:09 | XMS REPORT ---
:1975 [facility] Address [address] [place] [address] Care Team Providers Name Role Phone UNKNOWN, [...] Clinicians Facility Department ID 2017-10-22 2017-10-22 Outpatient [facility] [id number] 00:00:00 00:00:00 2017-10-01 2017-10-01 Emergency [facility] [id number] 13:59:00 13:59:00 CARA 2017-09-30 2017-09-30 Emergency [facility] [id number] 05:54:41 05:54:41 2017-09-29 2017-09-[address] [facility] MED [id number] 18:37:00 18:37:00 2017-09-29 2017-09-29 Emergency E [facility] [id number] 16:00:00 16:00:00 Results Test Description Test Time Test Comments Text Results Atomic Results Result Comments BHCG, Serum, Qualitative 2017-10-01 16:02:00 Test Item Value Reference Range Comments Preg Qual [Se] (test code=BSHCG) Negative Negative Comprehensive Metabolic [id number] 16:01:00 Test Item Value Reference Range Comments [...] race is not provided, and the patient isAfrican-Pakistani, multiply by 1.212. If sex is not [...] the National Kidney Foundation,http://nkdep.ni h.gov CBC with [id number] 15:19:00 Test Item Value Reference Range Comments [...] Lymph Abs (test code=ALYMPH) 2.3 K/cumm 0.5-4.6 [place] Abs (test code=AMONO) 0.5 K/cumm 0.0-1.2 Eos Abs (test code=AEOS) 0.05 K/cumm 0.00-0.74 Baso Abs (test code=ABASO) 0.1 K/cumm 0.00-0.21 TISSUE [id number] 08:45:00Surgical Pathology Report Case: [id number] Authorizing Provider: Kelsie Roberts MD Collected: 04/03/2017 [id number] Ordering Location: [facility] Received: 04/03/2017 1404 SERVICES Pathologist: Noris [...] INCLUSION CYSTSMG/pl Signing Pathologist Direct Phone Line: [phone] signed by Noris Rogers MD on 04/09/2017 [...] nodes submitted or found Distant Metastasis: Not [id number]; 25312 X4; 28392; 71137 x10; 00708; 90069, 66058Bxtqzycenohioskm, pelvic pain, ovarian cystA. Ovary, left; B. [...] cyst. Sectioning reveals patent pinpoint lumen. A in store representative section of the ovarian cyst wall is submitted for frozen section and the frozen section tissue remnants are submitted into A1.Section code: A2, fimbriated end entirely submitted; A3 to A4, remainder of fallopian tube, entirely submitted; A5 to A12 , in store representative sections of cyst wall.Specimen B is [...] no adhesions or obvious perforations are identified. Mcat Instructor cross sections are submitted into C1 and [...] Sectioning does not reveal any discrete lesion. Mcat Instructor sections are submitted into G1 through G4. [...] - AT LEAST SEROUS BORDERLINE TUMOR ON KETTLE ROOM HELPER SECTION - SIGNED OUT BY DR. ROGERS [...] in the diagnostic report above:Synaptophysin: PositiveChromogranin : TprvfppnDy55: 1%The immunohistochemistry test was developed and its performance characteristics determined by [facility], Pathology Laboratory. It has not [...] qualified to perform high complexity clinical laboratory testing.[facility], Department of Pathology, [address] [place] [address], [facility] , [address] [place] [address], st. [facility], Department of Pathology, [address] [place] [address], [id number] 13:33:00Medical Cytology Report Case: [id number] Authorizing Provider: Kelsie Roberts MD Collected: 2016 1519 Ordering Location: [facility] Received : 04/06/2017 0820 SERVICES Pathologist: Noris Rogers MD Specimen: Abdomen, Left LEFT DIAPHRAGMATIC WASHING (CYTOSPINS): - PREDOMINANTLY BLOOD; NO MALIGNANT CELLS IDENTIFIED Please also see surgical pathology report [id number] and cytopathology reports [id number] and 146. [id number]; pelvic pain; ovarian cystLEFTDIAPHRAGMATIC WASHING4 cytospins prepared from 15 ml bloody fluidCollected: [id number]: [id number]. [facility], Department of Pathology, [address] [place] [address], [place]. [facility], Department of Pathology, [address] [place] [address], [id number] 13:29:00Medical Cytology Report Case: [id number] Authorizing Provider: Kelsie Roberts MD Collected: 2016 1514 Ordering Location: [facility] Received : 04/06/2017 0817 SERVICES Pathologist: Noris Rogers MD Specimen: Abdomen, Right RIGHT DIAPHRAGMATIC WASHING (CYTOSPINS): - SCANT CELLULARITY; NO MALIGNANT CELLS IDENTIFIED Please also see surgical pathology report [id number] and cytopathology reports [id number] and 147. [id number]; pelvic pain; ovarian cystRIGHTDIAPHRAGMATIC WASHING4 cytospins prepared from 1 cc bloody fluidCollected: [id number]: [id number]. [facility], Department of Pathology, [address] [place] [address], [place]. [facility], Department of Pathology, [address] [place] [address], [id number] 13:27:00Medical Cytology Report Case: [id number] Authorizing Provider: Kelsie Roberts MD Collected: 2016 1315 Ordering Location: [facility] Received : 04/03/2017 1342 SERVICES Pathologist: Noris Rogers MD Specimen: Abdominal Cavity ABDOMINAL CAVITY WASHING (CYTOSPINS): - NO MALIGNANT CELLS IDENTIFIED Please also see surgical pathology report [id number] and cytopathology reports [id number] and 147. [id number]; pelvic pain; ovarian cystABDOMINAL CAVITY WASHINGS4 cytospins prepared from 28 ml colorless fluidCollected: [id number]: [id number] [facility], Department of [facility], [address] [place] [address], [address] [facility], Department of Pathology, [address] [place] [address], [id number] 06 :21:00 Test Item Value Reference Range Comments SODIUM (BEAKER) (test zflo=978) 136 meq/L 135-148 POTASSIUM (BEAKER) (test xvvw=150) 3.9 meq/L 3.6-5.5 CHLORIDE (BEAKER) (test ldkr=079) 104 meq/L 98-106 CO2 (BEAKER) (test juau=462) 21 meq/L 20-29 SCREEN, [id number] 10:58:00 Test Item Value Reference Range Comments TEST URINE (BEAKER) (test ppfw=532) Negative BASIC METABOLIC [id number] 12:28:00 Test Item Value Reference Range Comments SODIUM (BEAKER) (test 139 meq/L 135-148 yrer=643) POTASSIUM (BEAKER) (test 4.6 meq/L 3.6-5.5 mdip=014) CHLORIDE (BEAKER) (test 104 meq/L 98-106 ihpa=231) CO2 (BEAKER) (test 25 meq/L 20-29 pwcl=474) BLOOD UREA NITROGEN 14 mg/dL 10-26 (BEAKER) (test hhyj=967) CREATININE (BEAKER) (test 1.10 mg/dL 0.50-1.20 bvkx=418) GLUCOSE RANDOM (BEAKER) 120 mg/dL 70-110 (test liii=721) CALCIUM (BEAKER) (test 9.4 mg/dL 8.5-10.5 evbx=256) EGFR (BEAKER) (test 55 mL/min/1.73 sq m ESTIMATED GFR IS NOT qloh=0792) ACCURATE CREATININE CLEARANCE IN PREDICTING GLOMERULAR FILTRATION RATE. ESTIMATED GFR IS NOT APPLICABLE FOR DIALYSIS PATIENTS. CBC W/PLT COUNT & AUTO [id number] 12:14:00 Test Item Value Reference Range Comments WHITE BLOOD CELL COUNT (BEAKER) (test jxqe=285) 9.1 K/ L 4.0-10.0 RED BLOOD CELL COUNT (BEAKER) (test fwom=086) 4.55 M/ L 4.00-5.00 HEMOGLOBIN (BEAKER) (test cinr=801) 14.2 GM/DL 12.0-15.0 HEMATOCRIT (BEAKER) (test cdeb=802) 43.5 % 36.0-45.0 MEAN CORPUSCULAR VOLUME (BEAKER) (test risd=028) 95.7 fL 82.0-99.0 MEAN CORPUSCULAR HEMOGLOBIN (BEAKER) (test 31.2 pg 27.0-33.0 bkbk=268) MEAN CORPUSCULAR HEMOGLOBIN CONC (BEAKER) (test 32.6 GM/DL 32.0-36.0 fego=336) RED CELL DISTRIBUTION WIDTH (BEAKER) (test 15.3 % 10.3-14.2 xasi=859) PLATELET COUNT (BEAKER) (test tdie=011) 481 K/CU MM 150-430 MEAN PLATELET VOLUME (BEAKER) (test jnyg=885) 9.6 fL 6.5-10.5 NUCLEATED RED BLOOD CELLS (BEAKER) (test 0 /100 WBC 0-0 cvqy=236) NEUTROPHILS RELATIVE PERCENT (BEAKER) (test 55 % vnjy=741) LYMPHOCYTES RELATIVE PERCENT (BEAKER) (test 35 % csax=334) MONOCYTES RELATIVE PERCENT (BEAKER) (test 7 % uabo=253) EOSINOPHILS RELATIVE PERCENT (BEAKER) (test 4 % gark=686) BASOPHILS RELATIVE PERCENT (BEAKER) (test 0 % kbiy=571) NEUTROPHILS ABSOLUTE COUNT (BEAKER) (test 5.00 K/ L 1.80-8.00 xqmv=294) LYMPHOCYTES ABSOLUTE COUNT (BEAKER) (test 3.20 K/ L 1.48-4.50 wsoc=742) MONOCYTES ABSOLUTE COUNT (BEAKER) (test 0.60 K/ L 0.00-1.30 ekqv=896) EOSINOPHILS ABSOLUTE COUNT (BEAKER) (test 0.30 K/ L 0.00-0.50 tvbl=709) BASOPHILS ABSOLUTE COUNT (BEAKER) (test 0.00 K/ L 0.00-0.20 ydxr=149)
--- OUTSIDE RECORDS SUMMARY | 2017-10-12 10:09 | XMS REPORT | Clinical Summary ---
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 Respiratory Rate 18 10/01/2017 11:12 AM 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 Oxygen Saturation 98% 10/01/2017 11:12 AM 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 Inhaled Oxygen Concentration - - Weight - - Height 162.6 cm (5' 4") 10/01/2017 11:14 AM 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 Body Mass Index - - Plan of Treatment Not on file Results ECG ED Preliminary Interpretation - NOT AN ORDER (10/01/2017 11:46 AM) Narrative Hiram Jimenez MD 10/02/20178:17 PM ECG ED Preliminary Interpretation - Not an Order Performed by: HIRAM JIMENEZ Authorized by: HIRAM JIMENEZ ECG reviewed by ED Physician in the absence of a hot baller: yes Previous ECG: Previous ECG:Unavailable Interpretation: Interpretation: [...] Range Ventricular rate 74 Atrial rate 74 DC interval 184 QRSD interval 98 QT interval 428 QTC interval 475 P axis 1 29 QRS axis 1 7 T wave axis 12 EKG impression Normal sinus rhythm-Minimal voltage criteria for LVH, may be normal variant-Cannot rule out Anterior infarct , age undetermined-Abnormal ECG- In automated comparison with ECG of 30-SEP-2017 15:58,-No sig nificant change was found- Specimen Performing Laboratory [facility] [address] [place] [address] after 10/11/2016 Insurance Payer Benefit Plan / Group Subscriber ID Type Phone Address MEDICAID MEDICAID xxxxxxxxx Medicaid Home: [address] [phone] [place], [place] [address]
--- NOTE | 2017-10-12 11:51 | ER ---
Nurse's Notes [facility] Name: Kaycee Porter Age: 42 yrs Sex: Female : 1975 Arrival Date: 10/12/2017 Time: 10:08 Bed 12 Private MD: Nimesh Boston E Diagnosis: Presentation: 10/12 10:26 Presenting complaint: Patient states: "I'm out of my benzo's and I can't get in with Dr italia Boston until 10/21." Patient seen in this ER for same complaint 3 times prior. Transition of care: patient was not received from another setting of care. Onset of symptoms was October 08, 2017. Care prior to arrival: None. 10:26 Method Of Arrival: Ambulatory aj 10:26 Acuity: KARLA 5 aj 11:49 Note Patient eloped from lobby. "I will come back tomorrow.". aj Triage Assessment: 10:30 General: Appears in no apparent distress. comfortable, Behavior is calm, cooperative, aj appropriate for age. Pain: Denies pain. Neuro: Level of Consciousness is awake, alert, obeys commands, Oriented to person, place, time, situation. Respiratory: Airway is patent Respiratory effort is even, unlabored, Respiratory pattern is regular, symmetrical. Derm: Skin is intact, is healthy with good turgor, Skin is pink, warm \\T\\ dry. normal. 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 LMP N/A - Hysterectomy aj Historical: - Allergies: 10:30 Amoxicillin; aj 10:30 Erythromycin; aj - Home Meds: 10:30 clonidine HCl 0.2 mg Oral tab 1 tab 2 times per day [Active]; clonazepam 2 mg Oral tab aj 1 tab 3 times per day [Active]; Effexor Oral 150 mg daily [Active]; hydroxyzine HCl 25 mg Oral tab 1 tab every 8 hours as needed [Active]; propranolol 40 mg Oral tab 1 tab 3 times per day [Active]; Seroquel 300 mg Oral tab 1 tab once daily [Active]; Zoloft 100 mg Oral tab 1 tab once daily [Active]; - PMHx: 10:30 Anxiety; Bipolar disorder; cancer-ovarian; Depression; Hypertension; shasta; Overdose; R aj sided ovary mass; Tachycardia; - PSHx: 10:30 None; aj - Immunization history:: Adult Immunizations up to date. - Social history:: Smoking status: Patient uses tobacco products, smokes one-half pack cigarettes per day. Vital Signs: 10:30 BP 113 / 75; Pulse 105; Resp 19; Temp 98.0; Pulse Ox 97% on R/A; Weight 77.11 kg; aj Height 5 ft. 5 in. (165.10 cm); Pain 0/10; 10:30 Body Mass Index 28.29 (77.11 kg, 165.10 cm) ED Course: 10:08 Patient arrived in ED. mr 10:09 Nimesh Boston MD is Private Physician. mr 10:29 Triage completed. aj 10:30 Arm band placed on right wrist. Patient placed in waiting room, Patient notified of wait time. 11:50 Nimesh Boston MD is Attending Physician. aj 11:51 Víctor Eubanks MD is Attending Physician. aj 10/13 11:01 Attending Physician role handed off by Víctor Eubanks MD ss 11:01 Víctor Saba PA is PHCP. cp 11:01 Nimesh Aquino MD is Attending Physician. cp 11:03 Víctor Eubanks MD is Attending Physician. ss Administered Medications: No medications were administered Outcome: 10/12 11:50 Eloped from waiting room, before seeing physician aj 11:51 Patient left the ED. aj 10/13 11:02 Patient left the ED. ss 11:03 Patient left the ED. ss Signatures: Dedra Parker, RN RN Noris Fry Chitra Neal RN RN ss Page, Corey, PA PA cp
[2017-10-12 11:55] VITALS: BP 113/75; TEMP 98; O2SAT 97
== END 2017-10-13 11:03 | disposition left against medical advice (07) ==
LOC: ER 10:06
DX: Z53.21 Procedure and treatment not carried out due to patient leaving prior to being seen by health care provider (principal)
CPT/HCPCS: 99281

== ENCOUNTER 2017-10-13 09:40 | Emergency (ER) | payer OTHER ==
--- OUTSIDE RECORDS SUMMARY | 2017-10-13 09:43 | XMS REPORT | Clinical Summary ---
:1975 Author Organization [facility] Address [address] [place] [id number] Care Team Providers Name Role Phone Asked, [...] ( Primary Dx); DO Medication refill after 10/12/2016 Social History Tobacco Use Types Packs/Day Years Used Date Current Every Day Smoker Smokeless Tobacco: Never Used Sex Assigned at Date Recorded Not on file Last Filed Vital Signs Vital Sign Reading Time Taken Blood Pressure 115/57 10/01/2017 11:12 AM PINION STAKER Pulse 77 10/01/2017 11:12 AM PINION STAKER Temperature 36.9 C (98.5 F) 10/01/2017 11:12 AM PINION STAKER Respiratory Rate 18 10/01/2017 11:12 AM PINION STAKER Oxygen Saturation 98% 10/01/2017 11:12 AM PINION STAKER Inhaled Oxygen Concentration - - Weight - - Height 162.6 cm (5' 4") 10/01/2017 11:14 AM PINION STAKER Body Mass Index - - Plan of Treatment Not on file Results ECG ED Preliminary Interpretation - NOT AN ORDER (10/01/2017 11:46 AM) Narrative Hiram Jimenez MD 10/02/20178:17 PM ECG ED Preliminary Interpretation - Not an Order Performed by: HIRAM JIMENEZ Authorized by: HIRAM JIMENEZ ECG reviewed by ED Physician in the absence of a steamer tender: yes Previous ECG: Previous ECG:Unavailable Interpretation: Interpretation: [...] Range Ventricular rate 74 Atrial rate 74 GA interval 184 QRSD interval 98 QT interval 428 QTC interval 475 P axis 1 29 QRS axis 1 7 T wave axis 12 EKG impression Normal sinus rhythm-Minimal voltage criteria for LVH, may be normal variant-Cannot rule out Anterior infarct , age undetermined-Abnormal ECG- In automated comparison with ECG of 30-SEP-2017 15:58,-No sig nificant change was found- Specimen Performing Laboratory [facility] [address] [facility] [place] [address] after 10/12/2016 Insurance Payer Benefit Plan / Group Subscriber ID Type Phone Address MEDICAID MEDICAID xxxxxxxxx Medicaid Home: [address] [phone] [place], [place] [address]
--- OUTSIDE RECORDS SUMMARY | 2017-10-13 09:44 | XMS REPORT ---
:1975 [facility] Address [address] [place] [address] Care Team Providers Name Role Phone UNKNOWN, [...] Clinicians Facility Department ID 2017-10-22 2017-10-22 Outpatient [facility] [id number] 00:00:00 00:00:00 2017-10-01 2017-10-01 Emergency [facility] [id number] 13:59:00 13:59:00 CARA 2017-09-30 2017-09-30 Emergency [facility] MED [id number] 05:54:41 05:54:41 2017-09-29 2017-09-29 Emergency [facility] MED [id number] 18:37:00 18:37:00 2017-09-29 2017-09-29 Emergency E [facility] [id number] 16:00:00 16:00:00 Results Test Description Test Time Test Comments Text Results Atomic Results Result Comments BHCG, Serum, Qualitative 2017-10-01 16:02:00 Test Item Value Reference Range Comments Preg Qual [Se] (test code=BSHCG) Negative Negative Comprehensive Metabolic [id number] 16:01:00 Test Item Value Reference Range Comments [...] race is not provided, and the patient isAfrican-[place], multiply by 1.212. If sex is not [...] the National Kidney Foundation,http://nkdep.ni h.gov CBC with [id number] 15:19:00 Test Item Value Reference Range Comments [...] Lymph Abs (test code=ALYMPH) 2.3 K/cumm 0.5-4.6 Shack[place]ord Abs (test code=AMONO) 0.5 K/cumm 0.0-1.2 Eos Abs (test code=AEOS) 0.05 K/cumm 0.00-0.74 Baso Abs (test code=ABASO) 0.1 K/cumm 0.00-0.21 TISSUE [id number] 08:45:00Surgical Pathology Report Case: [id number] Authorizing Provider: Kelsie Roberts MD Collected: 04/03/2017 7726 Ordering Location: [facility] PERIOPERATIVE Received: 04/03/2017 1404 [...] INCLUSION CYSTSMG/pl Signing Pathologist Direct Phone Line: [phone] signed by Noris Rogers MD on 04/09/2017 [...] nodes submitted or found Distant Metastasis: Not feffjaduef44086; 48175 X4; 82510; 01231 x10; 83069; 20180, 65266Devhpvgutymwjdul, pelvic pain, ovarian cystA. Ovary, left; B. [...] cyst. Sectioning reveals patent pinpoint lumen. A entry level sales representative section of the ovarian cyst wall is submitted for frozen section and the frozen section tissue remnants are submitted into A1.Section code: A2, fimbriated end entirely submitted; A3 to A4, remainder of fallopian tube, entirely submitted; A5 to A12 , entry level sales representative sections of cyst wall.Specimen B [...] no adhesions or obvious perforations are identified. Compression Molding Machine Setter cross sections are submitted into C1 and [...] Sectioning does not reveal any discrete lesion. Compression Molding Machine Setter sections are submitted into G1 through G4. [...] - AT LEAST SEROUS BORDERLINE TUMOR ON TELEPHONE APPOINTMENT CLERK SECTION - SIGNED OUT BY DR. ROGERS [...] in the diagnostic report above:Synaptophysin: PositiveChromogranin : DvmjxmndNe05: 1%The immunohistochemistry test was developed and its performance characteristics determined by [facility], Pathology Laboratory. It has not been cleared [...] qualified to perform high complexity clinical laboratory testing.[facility], Department of Pathology, [address] [place] [address], [facility], [facility] , [address] [place] [address], st. [facility], Department of Pathology, [address] [place] [address], [id number] 13:33:00Medical Cytology Report Case: [id number] Authorizing Provider: Kelsie Roberts MD Collected: 2016 1519 Ordering Location: [facility] Received : 04/06/2017 0820 SERVICES Pathologist: Noris Rogers MD Specimen: Abdomen, Left LEFT DIAPHRAGMATIC WASHING (CYTOSPINS): - PREDOMINANTLY BLOOD; NO MALIGNANT CELLS IDENTIFIED Please also see surgical pathology report [id number] and cytopathology reports [id number] and 146. [id number]; pelvic pain; ovarian cystLEFTDIAPHRAGMATIC WASHING4 cytospins prepared from 15 ml bloody fluidCollected: [id number]: [id number]. [facility], Department of Pathology, [address] [place] [address], [address] [facility], Department of Pathology, [address] [place] [address], [id number] 13:29:00Medical Cytology Report Case: [id number] Authorizing Provider: Kelsie Roberts MD Collected: 2016 1514 Ordering Location: [facility] Received : 04/06/2017 0817 SERVICES Pathologist: Noris Rogers MD Specimen: Abdomen, Right RIGHT DIAPHRAGMATIC WASHING (CYTOSPINS): - SCANT CELLULARITY; NO MALIGNANT CELLS IDENTIFIED Please also see surgical pathology report [id number] and cytopathology reports [id number] and 147. [id number]; pelvic pain; ovarian cystRIGHTDIAPHRAGMATIC WASHING4 cytospins prepared from 1 cc bloody fluidCollected: [id number]: [id number]. [facility], Department of Pathology, [address] [place] [address], If. [facility], Department of Pathology, [address] [place] [address], [id number] 13:27:00Medical Cytology Report Case: [id number] Authorizing Provider: Kelsie Roberts MD Collected: 2016 1315 Ordering Location: [facility] Received : 04/03/2017 1342 SERVICES Pathologist: Noris Rogers MD Specimen: Abdominal Cavity ABDOMINAL CAVITY WASHING (CYTOSPINS): - NO MALIGNANT CELLS IDENTIFIED Please also see surgical pathology report [id number] and cytopathology reports [id number] and 147. [id number]; pelvic pain; ovarian cystABDOMINAL CAVITY WASHINGS4 cytospins prepared from 28 ml colorless fluidCollected: [id number]: [id number] Medical Center, Department of Pathology, [address] [place] [address], [address] [facility], Department of Pathology, [address] [place] [address], [id number] 06 :21:00 Test Item Value Reference Range Comments SODIUM (BEAKER) (test ldtj=081) 136 meq/L 135-148 POTASSIUM (BEAKER) (test spcx=964) 3.9 meq/L 3.6-5.5 CHLORIDE (BEAKER) (test vyuu=790) 104 meq/L 98-106 CO2 (BEAKER) (test krwm=171) 21 meq/L 20-29 SCREEN, [id number] 10:58:00 Test Item Value Reference Range Comments TEST URINE (BEAKER) (test wvcp=826) Negative BASIC METABOLIC [id number] 12:28:00 Test Item Value Reference Range Comments SODIUM (BEAKER) (test 139 meq/L 135-148 tfmu=423) POTASSIUM (BEAKER) (test 4.6 meq/L 3.6-5.5 zjdr=301) CHLORIDE (BEAKER) (test 104 meq/L 98-106 nlrw=319) CO2 (BEAKER) (test 25 meq/L 20-29 zaie=507) BLOOD UREA NITROGEN 14 mg/dL 10-26 (BEAKER) (test pdpy=698) CREATININE (BEAKER) (test 1.10 mg/dL 0.50-1.20 stoq=805) GLUCOSE RANDOM (BEAKER) 120 mg/dL 70-110 (test htpg=872) CALCIUM (BEAKER) (test 9.4 mg/dL 8.5-10.5 oxow=138) EGFR (BEAKER) (test 55 mL/min/1.73 sq m ESTIMATED GFR IS NOT vbux=5009) ACCURATE CREATININE CLEARANCE IN PREDICTING GLOMERULAR FILTRATION RATE. ESTIMATED GFR IS NOT APPLICABLE FOR DIALYSIS PATIENTS. CBC W/PLT COUNT & AUTO [id number] 12:14:00 Test Item Value Reference Range Comments WHITE BLOOD CELL COUNT (BEAKER) (test lsmz=235) 9.1 K/ L 4.0-10.0 RED BLOOD CELL COUNT (BEAKER) (test zyuz=282) 4.55 M/ L 4.00-5.00 HEMOGLOBIN (BEAKER) (test jeuy=718) 14.2 GM/DL 12.0-15.0 HEMATOCRIT (BEAKER) (test tcgo=966) 43.5 % 36.0-45.0 MEAN CORPUSCULAR VOLUME (BEAKER) (test bayg=446) 95.7 fL 82.0-99.0 MEAN CORPUSCULAR HEMOGLOBIN (BEAKER) (test 31.2 pg 27.0-33.0 lmjd=760) MEAN CORPUSCULAR HEMOGLOBIN CONC (BEAKER) (test 32.6 GM/DL 32.0-36.0 exug=521) RED CELL DISTRIBUTION WIDTH (BEAKER) (test 15.3 % 10.3-14.2 yuro=502) PLATELET COUNT (BEAKER) (test cery=382) 481 K/CU MM 150-430 MEAN PLATELET VOLUME (BEAKER) (test bcox=176) 9.6 fL 6.5-10.5 NUCLEATED RED BLOOD CELLS (BEAKER) (test 0 /100 WBC 0-0 hhqi=074) NEUTROPHILS RELATIVE PERCENT (BEAKER) (test 55 % ihvk=028) LYMPHOCYTES RELATIVE PERCENT (BEAKER) (test 35 % sqqt=715) MONOCYTES RELATIVE PERCENT (BEAKER) (test 7 % tsst=526) EOSINOPHILS RELATIVE PERCENT (BEAKER) (test 4 % rqkr=344) BASOPHILS RELATIVE PERCENT (BEAKER) (test 0 % iunb=436) NEUTROPHILS ABSOLUTE COUNT (BEAKER) (test 5.00 K/ L 1.80-8.00 txag=571) LYMPHOCYTES ABSOLUTE COUNT (BEAKER) (test 3.20 K/ L 1.48-4.50 wdpo=431) MONOCYTES ABSOLUTE COUNT (BEAKER) (test 0.60 K/ L 0.00-1.30 ehzb=675) EOSINOPHILS ABSOLUTE COUNT (BEAKER) (test 0.30 K/ L 0.00-0.50 ldti=072) BASOPHILS ABSOLUTE COUNT (BEAKER) (test 0.00 K/ L 0.00-0.20 okhv=723)
--- NOTE | 2017-10-13 10:58 | EDPHYS ---
Physician Documentation [facility] Name: Kaycee Porter Age: 42 yrs Sex: Female : 1975 Arrival Date: 10/13/2017 Time: 09:42 Bed 12 Private MD: ED Physician Nimesh Aquino HPI: 10/13 09:59 This 42 yrs old Female presents to ER via Ambulatory with complaints of cp Medication Refill. 09:59 The patient presents to the emergency department requesting refill(s) for: propanolol, cp clonazepam. The patient chronically suffers from hypertension, anxiety. The patient has been recently seen at the [facility] Emergency Department, for similar complaints instructed to f/u with primary care physician, 2 days ago. Historical: - Allergies: 09:46 Erythromycin (Hives); hb 09:46 Amoxicillin (Hives); hb - Home Meds: 09:46 clonidine HCl 0.2 mg Oral tab 1 tab 2 times per day [Active]; clonazepam 2 mg Oral tab hb 1 tab 3 times per day [Active]; Effexor Oral 150 mg daily [Active]; hydroxyzine HCl 25 mg Oral tab 1 tab every 8 hours as needed [Active]; propranolol 40 mg Oral tab 1 tab 3 times per day [Active]; Seroquel 300 mg Oral tab 1 tab once daily [Active]; Zoloft 100 mg Oral tab 1 tab once daily [Active]; - PMHx: 09:46 Anxiety; Bipolar disorder; cancer-ovarian; Depression; Hypertension; shasta; Overdose; R hb sided ovary mass; Tachycardia; - PSHx: 09:46 None; hb - Immunization history:: Adult Immunizations up to date. - Social history:: Smoking status: Patient uses tobacco products, denies chronic smoking, but will smoke occasionally. ROS: 10:02 Eyes: Negative for injury, pain, redness, and discharge. cp 10:02 Constitutional: Negative for body aches, chills, fever, poor PO intake. 10:02 ENT: Negative for drainage from ear(s), ear pain, sore throat, difficulty swallowing, difficulty handling secretions. 10:02 Cardiovascular: Negative for chest pain, edema, palpitations. 10:02 Respiratory: Negative for cough, shortness of breath, wheezing. 10:02 Abdomen/GI: Negative for abdominal pain, nausea, vomiting, and diarrhea. 10:02 Neuro: Negative for altered mental status, headache, weakness. 10:02 Psych: Negative for homicidal ideation, suicide gesture, suicidal ideation. 10:02 All other systems are negative. Exam: 10:03 Head/Face: Normocephalic, atraumatic. cp 10:03 Constitutional: The patient appears in no acute distress, alert, awake, non-toxic, well developed, well nourished. 10:03 Special observations: no evidence of discomfort. Vital Signs: 09:45 BP 138 / 89; Pulse 88; Resp 16; Temp 98; Pulse Ox 100% on R/A; Pain 0/10; hb MDM: 09:49 Patient medically screened. cp 10:06 Data reviewed: vital signs, nurses notes. cp Administered Medications: No medications were administered Disposition: 10:06 Medication refill. cp Disposition: 10/13/17 10:57 Discharged to Home as Medical Screen. Impression: Persons encountering health services for other counseling and medical advice, not elsewhere classified. - Condition is Stable. - Medication Reconciliation Form, Thank You Letter, Antibiotic Education, Prescription Opioid Use form. - Follow up: Private Physician; When: Upon discharge from the Emergency Department; Reason: Recheck today's complaints. - Problem is chronic. - Symptoms are unchanged. Addendum: 10/16/2017 19:17 Co-signature as Attending Physician, iNmesh Aquino MD I agree with the assessment and w a plan of care. Signatures: Dedra Parker RN Chitra Ortiz RN RN ss Page, Corey, PA PA cp Baxter, Heather, RN RN hb Appiah, William, MD MD wa
--- NOTE | 2017-10-13 10:58 | ER ---
Nurse's Notes [facility] Name: Kaycee Porter Age: 42 yrs Sex: Female : 1975 Arrival Date: 10/13/2017 Time: 09:42 Bed 12 Private MD: Diagnosis: Persons encountering health services for other counseling and medical advice, not elsewhere classified Presentation: 10/13 09:44 Presenting complaint: Patient states: "Dr. Boston told me to come to the ER because I hb need a refill on my propanolol and clonazepam and she can't see me until next week.". Transition of care: patient was not received from another setting of care. Onset of symptoms is unknown. Care prior to arrival: None. 09:44 Method Of Arrival: Ambulatory hb 09:44 Acuity: KARLA 5 hb Triage Assessment: 09:47 General: Appears in no apparent distress. Behavior is calm, cooperative. Pain: Denies hb pain. Neuro: Level of Consciousness is awake, alert, obeys commands, Oriented to person, place, time, situation. Cardiovascular: Capillary refill < 3 seconds Patient's skin is warm and dry. Respiratory: Airway is patent Respiratory effort is even, unlabored, Respiratory pattern is regular, symmetrical. Historical: - Allergies: 09:46 Erythromycin (Hives); hb 09:46 Amoxicillin (Hives); hb - Home Meds: 09:46 clonidine HCl 0.2 mg Oral tab 1 tab 2 times per day [Active]; clonazepam 2 mg Oral tab hb 1 tab 3 times per day [Active]; Effexor Oral 150 mg daily [Active]; hydroxyzine HCl 25 mg Oral tab 1 tab every 8 hours as needed [Active]; propranolol 40 mg Oral tab 1 tab 3 times per day [Active]; Seroquel 300 mg Oral tab 1 tab once daily [Active]; Zoloft 100 mg Oral tab 1 tab once daily [Active]; - PMHx: 09:46 Anxiety; Bipolar disorder; cancer-ovarian; Depression; Hypertension; shasta; Overdose; R hb sided ovary mass; Tachycardia; - PSHx: 09:46 None; hb - Immunization history:: Adult Immunizations up to date. - Social history:: Smoking status: Patient uses tobacco products, denies chronic smoking, but will smoke occasionally. Vital Signs: 09:45 BP 138 / 89; Pulse 88; Resp 16; Temp 98; Pulse Ox 100% on R/A; Pain 0/10; hb ED Course: 09:42 Patient arrived in ED. as 09:45 Triage completed. hb 09:47 Arm band placed on left wrist. hb 09:49 Víctor Sbaa PA is PHCP. cp 09:49 Nimesh Aquino MD is Attending Physician. cp Administered Medications: No medications were administered Outcome: 10:57 Discharge ordered by MD. cp 10:57 Patient left the ED. aj 11:03 Patient left the ED. Signatures: Dedra Parker, RN RN Lucie Ewing Shelby, RN RN Víctor Saba PA PA cp Baxter, Heather, RN RN hb
[2017-10-13 11:01] VITALS: BP 138/89; TEMP 98; O2SAT 100
== END 2017-10-13 11:03 | disposition home or self-care (01) ==
LOC: ER 09:40
DX: Z76.0 Encounter for issue of repeat prescription (principal); Z72.0 Tobacco use; I10 Essential (primary) hypertension; F32.9 Major depressive disorder, single episode, unspecified; F41.9 Anxiety disorder, unspecified; Z85.43 Personal history of malignant neoplasm of ovary; Z88.0 Allergy status to penicillin; Z88.3 Allergy status to other anti-infective agents
CPT/HCPCS: 99281

== ENCOUNTER 2017-11-05 19:13 | Emergency (ER) | payer SELFPAY ==
--- OUTSIDE RECORDS SUMMARY | 2017-11-05 19:15 | XMS REPORT | Clinical Summary ---
:1975 Author Organization [facility] Address [address] [place] [address] Care Team Providers Name Role Phone Asked, [...] ( Primary Dx); DO Medication refill after 11/04/2016 Social History Tobacco Use Types Packs/Day Years Used Date Current Every Day Smoker Smokeless Tobacco: Never Used Sex Assigned at Date Recorded Not on file Last Filed Vital Signs Vital Sign Reading Time Taken Blood Pressure 115/57 10/01/2017 11:12 AM IRON CARRIER Pulse 77 10/01/2017 11:12 AM IRON CARRIER Temperature 36.9 C (98.5 F) 10/01/2017 11:12 AM IRON CARRIER Respiratory Rate 18 10/01/2017 11:12 AM IRON CARRIER Oxygen Saturation 98% 10/01/2017 11:12 AM IRON CARRIER Inhaled Oxygen Concentration - - Weight - - Height 162.6 cm (5' 4") 10/01/2017 11:14 AM IRON CARRIER Body Mass Index - - Plan of Treatment Not on file Results ECG ED Preliminary Interpretation - NOT AN ORDER (10/01/2017 11:46 AM) Narrative Hiram Jimenez MD 10/02/20178:17 PM ECG ED Preliminary Interpretation - Not an Order Performed by: HIRAM JIMENEZ Authorized by: HIRAM JIMENEZ ECG reviewed by ED Physician in the absence of a head custodian: yes Previous ECG: Previous ECG:Unavailable Interpretation: Interpretation: [...] Range Ventricular rate 74 Atrial rate 74 DE interval 184 QRSD interval 98 QT interval 428 QTC interval 475 P axis 1 29 QRS axis 1 7 T wave axis 12 EKG impression Normal sinus rhythm-Minimal voltage criteria for LVH, may be normal variant-Cannot rule out Anterior infarct , age undetermined-Abnormal ECG- In automated comparison with ECG of 30-SEP-2017 15:58,-No sig nificant change was found- Specimen Performing Laboratory [facility] [address] [facility] [place] [address] after 11/04/2016 Insurance Payer Benefit Plan / Group Subscriber ID Type Phone Address [employer] MEDICAID [employer] [place] [employer] xxxxxxxxx O Home: [id number] [phone] [place], [place] [phone]
--- OUTSIDE RECORDS SUMMARY | 2017-11-05 19:16 | XMS REPORT | Clinical Summary ---
:[address] [facility] Address [address] [place] [address] Phone Care Team Providers Name Role Phone Unavailable Primary Care Provider Unavailable Allergies Active Allergy Reactions Severity Noted Date Comments Lamotrigine Anaphylaxis High 04/03/2017 Amoxicillin Nausea And Vomiting 03/20/2017 Erythromycin Hives, Swelling 03/20/2017 Current Medications Prescription Sig. Disp. Refills Start Date End Date Status propranolol (INDERAL) Take 40 mg by Active 40 MG tablet mouth 3 (three) times daily. clonazePAM (KLONOPIN) Take 2 mg by Active 2 MG tablet mouth 3 (three) times daily. sertraline (ZOLOFT) Take 100 mg by Active 100 MG tablet mouth daily. cloNIDine HCl Take 0.2 mg by Active (CATAPRES) 0.2 MG mouth 2 (two) tablet times daily. zolpidem (AMBIEN) 10 Take 10 mg by Active mg tablet mouth every night as needed for Insomnia. venlafaxine Take 150 mg by Active (EFFEXOR-XR) 150 MG mouth daily. 24 hr capsule HYDROcodone-acetamino Take 1 tablet 03/23/2017 Discontinued phen (NORCO 10-325) by mouth every 10-325 mg per tablet 6 (six) hours as needed for Pain. ibuprofen Take 200 mg by 03/23/2017 Discontinued (ADVIL,MOTRIN) 200 MG mouth every 6 tablet (six) hours as needed for Pain. sulfamethoxazole-trim Take 1 tablet 03/20/2017 Discontinued ethoprim (BACTRIM DS) by mouth 2 800-160 mg per tablet (two) times daily. clonazePAM (KLONOPIN) Take 2 mg by 03/23/2017 Discontinued 2 MG tablet mouth 2 (two) times daily as needed for Anxiety. propranolol (INDERAL) Take 40 mg by 03/23/2017 Discontinued 40 MG tablet mouth 3 (three) times daily. lisinopril Take 10 mg by 03/23/2017 Discontinued (PRINIVIL,ZESTRIL) 10 mouth daily. MG tablet sertraline (ZOLOFT) Take 100 mg by 03/23/2017 Discontinued 100 MG tablet mouth daily. zolpidem (AMBIEN) 10 Take 10 mg by 03/23/2017 Discontinued mg tablet mouth every night as needed for Insomnia. venlafaxine Take 150 mg by 03/23/2017 Discontinued (EFFEXOR-XR) 150 MG mouth daily. 24 hr capsule Active Problems Problem Noted Date S/P hysterectomy 04/03/2017 Ovarian mass, left 04/03/2017 Encounters Date Type Specialty Care Team Description 04/03/2017 - Hospital Encounter General Internal Roberts, Kelsie 04/04/2017 Medicine MD Lucero 04/03/2017 Procedure Pass 04/03/2017 Surgery Roberts, [facility] ROBOTIC LAPAROSCOPY MD Lucero 04/02/2017 Anesthesia Event Shayan Castillo AA 03/24/2017 Procedure Pass 03/20/2017 Hospital Encounter Pre-Admission Testing 03/20/2017 Orders Only General Internal Medicine 02/10/2017 Procedure Pass 02/02/2017 Hospital Encounter Pre-Admission Canceled (Patient) Testing after 11/04/2016 Social History Tobacco Use Types Packs/Day Years Used Date Current Every Day Smoker 1 23 Smokeless Tobacco: Never Used Alcohol Use Drinks/Week oz/Week Comments No Sex Assigned at Date Recorded Not on file Last Filed Vital Signs Vital Sign Reading Time Taken Blood Pressure 112/73 04/04/2017 7:40 AM CDT Pulse 89 04/04/2017 7:40 AM CDT Temperature 36.8 C (98.2 F) 04/04/2017 7:40 AM CDT Respiratory Rate 16 04/04/2017 7:40 AM CDT Oxygen Saturation 92% 04/04/2017 7:40 AM CDT Inhaled Oxygen Concentration - - Weight 90.7 kg (200 lb) 04/03/2017 11:14 AM CDT Height 165.1 cm (5' 5") 04/03/2017 11:14 AM CDT Body Mass Index 33.28 04/03/2017 11:14 AM CDT Plan of Treatment Not on file Implants Implanted Type Area Electrical Parts Reconditioner Device Expiration Model / Identifier Date Serial / Lot Hemstas Mph Absorb Hemo 3gr [id number] - [facility] Cement/F N/A: MEDAFOR [id number] / Implanted: Qty: 1 on 04/03/2017 by Kelsie Roberts MD iller/Lawrence Pelvis HEMOSTATIC NA / hesive POLYMER RENEE [id number] Procedures Procedure Name Priority Date/Time Associated Diagnosis Comments ROBOTIC LAPAROSCOPY 04/03/2017 12:00 PM CDT MENOMETRORRAGIA; PELVIC PAIN; OVARIAN CYST Special Needs GERRY TO ASSIST04/01 Office contacting, confirmed with Jakub04/01 Moved to noon, confirmed with Sanam @ office-tp after 11/04/2016 Results EKG-SCANNED (04/06/2017 10:40 AM)RHYTHM STRIP - SCAN (04/06/2017 10:40 AM) INTRAOPERATIVE PATH REPORT - SCAN (04/06/2017 10:40 AM)Electrolytes (04/04/2017 5:45 AM) Component Value Ref Range Sodium 136 135 - 148 meq/L Potassium 3.9 3.6 - 5.5 meq/L Chloride 104 98 - 106 meq/L CO2 21 20 - 29 meq/L Specimen Performing Laboratory Blood [facility] [address] [place] [address] ANESTHESIA PERIPHERAL BLOCK (04/03/2017 4:05 PM) Narrative Sudeep Mcleod MD 04/03/20174:05 PM Peripheral Block Patient location during procedure: OR Start time: 04/03/2017 3:45 PM End time: 04/03/2017 3:50 PM Reason for block: post-op pain management Staffing Anesthesiologist: SUDEEP MCLEOD Performed by: anesthesiologist Preanesthetic Checklist Completed: patient identified, site marked, surgical consent, pre-op evaluation, timeout performed, IV checked, risks and benefits discussed and monitors and equipment checked Peripheral Block Patient position: supine Prep: ChloraPrep Patient monitoring: heart rate, rn cardiac cath and continuous pulse ox Block type: TAP Laterality: right Injection technique: single-shot Procedures: ultrasound guided Local infiltration: Exparel Additives: 133 mg of Exparel Needle Needle type: Tuohy Needle gauge: 19 G Needle length: 100 mm Test dose: negative Assessment Injection assessment: negative aspiration for heme and local visualized surrounding nerve on ultrasound Paresthesia pain: none Heart rate change: no Slow fractionated injection: no Additional Notes TAP block performed on the right side, unfortunately patient was waking up and moving and did not get a chance to inject on the left side.Patient received a total of 133 mg of Experal Procedure Note Sudeep Mcleod MD - 04/03/2017 4:02 PM CDT Peripheral Block Patient location during procedure: OR Start time: 04/03/2017 3:45 PM End time: 04/03/2017 3:50 PM Reason for block: post-op pain management Staffing Anesthesiologist: SUDEEP MCLEOD THI Performed by: anesthesiologist Preanesthetic Checklist Completed: patient identified, site marked, surgical consent, pre-op evaluation , timeout performed, IV checked, risks and benefits discussed and monitors and equipment checked Peripheral Block Patient position: supine Prep: ChloraPrep Patient monitoring: heart rate, rn cardiac cath and continuous pulse ox Block type: TAP Laterality: right Injection technique: single-shot Procedures: ultrasound guided Local infiltration: Exparel Additives: 133 mg of Exparel Needle Needle type: Tuohy Needle gauge: 19 G Needle length: 100 mm Test dose: negative Assessment Injection assessment: negative aspiration for heme and local visualized surrounding nerve on ultrasound Paresthesia pain: none Heart rate change: no Slow fractionated injection: no Additional Notes TAP block performed on the right side, unfortunately patient was waking up and moving and did not get a chance to inject on the left side. Patient received a total of 133 mg of Experal Cytology (04/03/2017 3:19 PM)Only the most recent of3 resultswithin the time period is included. Component Value Ref Range Case Report Medical Cytology Report Case: [id number] Authorizing Provider:Kelsie Roberts MD Collected: 04/03/2017 1519 Ordering Location: [facility] Received: 04/06/2017 0820 SERVICES Pathologist: Noris Rogers MD Specimen:Abdomen, Left DIAGNOSIS LEFT DIAPHRAGMATIC WASHING (CYTOSPINS): - PREDOMINANTLY BLOOD; NO MALIGNANT CELLS IDENTIFIED COMMENT Please also see surgical pathology report [id number] and cytopathology reports [id number] and 146. CPT Code(s) 20478 CLINICAL DATA Menometrorrhagia; pelvic pain; ovarian cyst SPECIMEN SOURCE LEFT DIAPHRAGMATIC WASHING GROSS DESCRIPTION 4 cytospins prepared from 15 ml bloody fluid Collected: [id number] Received: [id number] MICROSCOPIC DESCRIPTION Performed. STATEMENT OF ADEQUACY Satisfactory Technical component was performed at [facility], Department of Pathology, [address] [place] [id number], Professional component was performed [facility], at Department of Pathology, [address] [place] [address], Specimen Performing Laboratory Washings - Abdomen, Left [facility] [address] [place] [address] Tissue Exam (04/03/2017 1:36 PM) Component Value Ref Range Case Report Surgical Pathology Report Case: [id number] Authorizing Provider:Kelsie Roberts MD Collected: 04/03/2017 1336 Ordering Location: [facility] Received: 04/03/2017 1404 SERVICES Pathologist: Noris Rogers MD Specimens: A) - Ovary, Left, LEFTOVARY B) - Uterus w/Cervix & Right Fallopian Tube, UTERUS, CERVIX, RIGHT FALLOPIAN C) - Appendix, APPENDIX D) - Lymph Node, Para-Aortic, Right, Station 6R, PARA AORTIC RIGHT STATION 6R E) - Lymph Node, Pelvic, Left, LEFT PELVIC LYMPH NODE F) - Lymph Node, Para-Aortic, Left, Station 6L, PARA AORTIC LEFT STATION 6L G) - Omentum, OMENTUM H) - Lymph Node, Pelvic, Right, RIGHT PELVIC LYMPH NODE I) - Cul-de-sac, ANTERIOR CUL-DE-SAC J) - Cul-de-sac, POSTERIOR CUL-DE-SAC K) - Pelvis, Right, RIGHT PELVIC SIDE-WALL L) - Pelvis, Left, LEFT PELVIC SIDE WALL M) - Abdomen, Left, LEFT PARA-COLIC N) - Abdomen, Right, RIGHT PARA-COLIC O) - Ovary, Right DIAGNOSIS A. OVARY AND FALLOPIAN TUBE, LEFT, SALPINGOOOPHORECTOMY: - OVARY: SEROUS BORDERLINE TUMOR SEE TUMOR SYNOPSIS BELOW FOR DETAILS - FALLOPIAN TUBE: PARATUBAL CYSTS NEGATIVE FOR TUMOR B. UTERUS AND CERVIX WITH RIGHT FALLOPIAN TUBE, HYSTERECTOMY AND SALPINGECTOMY: - ENDOMETRIUM: SECRETORY ENDOMETRIUM - MYOMETRIUM: ADENOMYOSIS - CERVIX: NABOTHIAN CYSTS - RIGHT FALLOPIAN TUBE: PARATUBAL CYSTS C. APPENDIX, APPENDECTOMY: WELL-DIFFERENTIATED NEUROENDOCRINE TUMOR (G1) APPROXIMATELY 1.0 CM IN GREATEST DIMENSION TUMOR EXTENDS THROUGH MUSCULARIS PROPRIA AND INTO PERIAPPENDICEAL ADIPOSE TISSUE NO DEFINITIVE LYMPHOVASCULAR INVASION IS SEEN MUCOSAL AND MESENTERIC MARGINS, NEGATIVE FOR TUMOR SEE SYNOPTIC REPORT BELOW FOR DETAILS D. LYMPH NODE, RIGHT PARAAORTIC STATION 6R, EXCISION: ENDOSALPINGIOSIS INVOLVING ONE LYMPH NODE, NEGATIVE FOR TUMOR (0/1) E. LYMPH NODE, LEFT PELVIC, EXCISION: FIFTEEN LYMPH NODES, NEGATIVE FOR TUMOR (0/15) F. LYMPH NODE, PARAAORTIC LEFT STATION 6L, EXCISION: FOUR LYMPH NODES, NEGATIVE FOR TUMOR (0/4) G. OMENTUM, OMENTECTOMY: FIBROADIPOSE TISSUE, NEGATIVE FOR TUMOR H. LYMPH NODE, RIGHT PELVIC, EXCISION: EIGHTEEN LYMPH NODES, NEGATIVE FOR TUMOR (0/18) I. ANTERIOR CUL-DE-SAC, BIOPSY: FIBROCONNECTIVE AND FIBROADIPOSE TISSUE, NEGATIVE FOR TUMOR J. POSTERIOR CUL-DE-SAC, BIOPSY: FIBROCONNECTIVE AND FIBROADIPOSE TISSUE, NEGATIVE FOR TUMOR K. RIGHT PELVIC SIDE WALL, BIOPSY: FIBROCONNECTIVE AND FIBROADIPOSE TISSUE, NEGATIVE FOR TUMOR L. LEFT PLEVIC SIDE WALL, BIOPSY: FIBROCONNECTIVE AND FIBROADIPOSE TISSUE, NEGATIVE FOR TUMOR M. LEFT PARACOLIC, BIOPSY: FIBROCONNECTIVE AND FIBROADIPOSE TISSUE, NEGATIVE FOR TUMOR N. RIGHT PARACOLIC, BIOPSY: FIBROCONNECTIVE AND FIBROADIPOSE TISSUE, NEGATIVE FOR TUMOR O. OVARY, RIGHT, OOPHORECTOMY: HEMORRHAGIC CORPUS LUTEAL CYST CYSTIC FOLLICLES EPITHELIAL INCLUSION CYSTS MG/pl Signing Pathologist Direct Phone Line: [phone] SYNOPTIC REPORT OVARY: Oophorectomy, Salpingo-Oophorectomy, Subtotal Oophorectomy or Removal of Tumor in Fragments, Hysterectomy with Salpingo- Oophorectomy(Ovary - All Specimens) Specimen:Ovary SPECIMEN Procedure:Bilateral salpingo-oophorectomy Procedure:Hysterectomy Procedure:Omentectomy Procedure:Peritoneal biopsies Lymph Node Sampling:Performed Right ovary:Fragmented Left ovary:Capsule intact Primary Tumor Site (Notes C, D, and E):Left ovary TUMOR Histologic Type (Notes F and G):Serous, borderline tumor Subtype of Serous, Borderline Tumor:Borderline only World Health Organization (WHO) Grading System (applies to all carcinomas, including serous carcinomas):GX: Cannot be assessed: Not applicable EXTENT Tumor Size:Left Ovary Tumor Size Tumor Size - Left Ovary:Greatest dimension (cm): 10 cm Ovarian Surface Involvement:Absent Implants (only applies to advanced stage serous / seromucinous borderline tumors) (Note I): Noninvasive Implant(s):Not present Invasive Implant(s):Not present Organs Submitted:Right ovary Right Ovary - Extent:Not involved Organs Submitted:Left ovary Left Ovary - Extent:Involved Organs Submitted:Right fallopian tube Right Fallopian Tube - Extent:Not involved Organs Submitted:Left fallopian tube Left Fallopian Tube - Extent:Not involved Organs Submitted:Uterus Uterus - Extent:Not involved Organs Submitted:Cervix Cervix - Extent:Not involved Organs Submitted:Omentum Omentum - Extent:Not involved Organs Submitted:Peritoneum Peritoneum - Extent:Not involved Organs Submitted:Other organs / tissues (specify): Appendix Other - Extent:Not involved ACCESSORY FINDINGS Lymph-Vascular Invasion (Note J):Not identified STAGE (pTNM [FIGO]) (Note K) Primary Tumor (pT):pT1a [IA]: Tumor limited to one ovary; capsule intact, no tumor on ovarian surface. No malignant cells in ascites or peritoneal washings# Regional Lymph Nodes (pN):pN0: No regional lymph node metastasis Number of Lymph Nodes Examined:Specify: 38 Number of Lymph Nodes Involved:Specify: 0 Distant Metastasis (pM):Not applicable APPENDIX, Neuroendocrine Tumor (Carcinoid Tumors): Excision (Appendectomy) or Resection(Appendix NET - C) SPECIMEN Specimen:Appendix Procedure:Appendectomy Specimen Integrity:Intact Specimen Size:Specify Length (cm): 5.5 cm Tumor Site:Distal half of appendix TUMOR Histologic Type and Grade:Well-differentiated neuroendocrine tumor; G1: Low grade (carcinoid) EXTENT Tumor Size:Greatest dimension (cm): 1.0 cm Microscopic Tumor Extension:Tumor extends into mesoappendix MARGINS Status of Margin Involvement:All margins uninvolved by neuroendocrine tumor Distance of Tumor From Closest Margin:Specify (cm): 4.0 cm Specify Margin:Proximal Proximal Margin:Uninvolved by tumor Mesenteric (Mesoappendiceal) Margin:Uninvolved by tumor Distance of Tumor From Closest Mesenteric Margin:Cannot be determined (explain): Incidental tumor finding. Exact distance cannot be determined. ACCESSORY FINDINGS Mitotic Rate:Specify mitoses per 10 high-power frost (HPF): 0 Lymph-Vascular Invasion:Not identified Perineural Invasion:Present SPECIAL STUDIES Ancillary Studies:Ki-67 labeling index Ki-67 Labeling Index:<=2% STAGE (pTNM) Primary Tumor (pT):pT1a: Tumor 1 cm or less in greatest dimension Regional Lymph Nodes:Cannot be assessed Status of Regional Lymph Nodes:No nodes submitted or found Distant Metastasis:Not applicable CPT Code(s) 01344; 00236 X4; 73208; 77767 x10; 58118; 99755, 53111 CLINICAL HISTORY Menometrorrhagia, pelvic pain, ovarian cyst SPECIMEN SOURCE A. Ovary, left; B. Uterus with cervix, right fallopian tube; C. Appendix; D. Lymph node, paraaortic right station 6R; E. Lymph node pelvic left; F. Lymph node paraaortic left, station 7L; G. Omentum; H. Lymph node, pelvic right; I. Lymph node anterior cul-de-sac; J. Lymph node, posterior cul-de-sac, K. Lymph node, right pelvic sidewall; L. Lymph node, left pelvic side wall; M. Lymph node, left paracolic; N. Lymph node, right paracolic; 0. Ovary, right GROSS DESCRIPTION Specimen A is received in a container designated as "ovary left" and consists of cystically dilated ovary (10.0 x [...] surface versus a paratubal cyst. Sectioning reveals paten t pinpoint lumen. A hotel services sales representative section of the ovarian cyst wall is submitted for frozen section and the frozen section tissue remnants are submitted into A1. Section code: A2, fimbriated end entirely submitted; A3 to A4, remainder of fallopian tube, entirely submitted; A5 to A12, hotel services sales representative sections of cyst wall. Specimen B is received in a container designated as "uterus with cervix, right fallopian tube". It consists of a hysterectomy specimen (106 gm, 2.0 cm superior to inferior, 6.5 cm cornu to cornu and 3.5 cm anterior to posterior) with attached right fallopian tube (5.5 cm in length and 1.0 cm in diameter). The ectocervix is blue-hampton and is 3.7 x 3.7 cm and has a slit-like os that is 1.0 cm. The endomet rium is red-brown and has a thickened endometrium that may represent multiple endometrial polyps ranging in size from 0.2 to 0.5 cm in greatest dimension. The myometrium is pink-hampton mildly trabeculated and 2.5 cm in greatest thickness. No discrete lesions are identified. The right fallopian tube has small paratubal cyst versus papillary surfaces located on the exterior surface toward the fimbria. Sectioning reveals patent pinpoint lumen. Section code: B1, anterior cervix; B2, posterior cervix; B3, possible cervical polyp; B4, possible endometrial polyp, anterior, entirely submitted; B5 through B6, possible endometrial polyp, posterior a spect, entirely submitted; B7 through B9, other possible endometrial polyp entirely submitted, posterior aspect; B10, fimbriated end entirely submitted; B11 through 13, fallopian tube entirely submitted. MG/pl Specimen C is received in fixative and designated as "appendix", complains of an appendectomy specimen ( 5.5 cm in length and 0.5 cm in diameter). Sectioning reveals a pinpoint lumen. The serosa is smoo th and no adhesions or obvious perforations are identified. Interface Analyst cross sections are submitted into C1 and the distal tip is submitted into C2. Specimen D is received in fixative and designated as "lymph node, paraaortic right", consists of yellow-hampton fibrofatty tissue (3.5 x 2.5 x 1.0 cm). Sectioning reveals one lymph node. The specimen is ser ially sectioned and entirely submitted into D1 through D3. Specimen E is received in fixative and designated as "lymph node, pelvic left " and consists of fibrofatty tissue (5.0 x 5.0 x 1.5 cm). Multiple possible lymph nodes are identified ranging in size from 1.0 to 2.0 cm in greatest dimension. Section code: E1, two possible lymph node; E2, three possible lymph nodes; E3 , one possible lymph node bisected; E4 to E5, one possible lymph node bisected; E6, two possible lymph node; E7, one possible lymph node bisected; E8, one possible lymph node trisected; A9 to A10, remainder of fibroadipose tissue. Specimen F is received in fixative and designated as "lymph node, paraaortic , left" and consists of three pink-hampton fibrofatty tissue fragments ranging in size from 2.0 to 2.5 cm in greatest dimension. S ectioning reveals two possible lymph node ranging in size from 1.0 to 1.3 cm in greatest dimension. Section code: F1, two possible lymph nodes; F2, remainder of fibrofatty tissue. Specimen G is received in fixative and designated as "omentum" and consists of yellow-hampton fibrofatty tissue (9.0 x 5.0 x 1.5 cm). Sectioning does not reveal any discrete lesion. Interface Analyst sections are submitted into G1 through G4. Specimen H is received in fixative and designated as "lymph node, pelvic, right" and consists of multiple fibrofatty tissue fragments measuring 6.5 x 4.0 x 1.8 cm in aggregate. Multiple possible lymph n odes are identified ranging in size from 0.5 to 1.5 cm in greatest dimension. Section code: H1, six possible lymph nodes; H2, three possible lymph nodes; H3, one possible lymph node bisected; H4, one possible lymph node bisected; H5, one possible lymph node bisected; H6, one poss ible lymph node bisected; H7, one possible lymph [...] The specimen is bisected and submitted into K1. Specimen L is received in fixative and designated [...] submitted into M1. Specimen N is received in fixative and designated as "right paracolic" consists of yellow-hampton fibroadipose tissue (1.5 x 1.0 x 0.5 cm). The specimen is entirely submitted into N1. Specimen O is received in fixative and designated as "right ovary" consists of multiple fragments of ovarian tissue (5.5 x 5.0 x 2.0 cm). The ovarian surface is disrupted. Cut surface of the ovary shows a polycystic ovarian parenchyma. resolved are submitted into O1 to O5. MG/ pl INTRAOPERATIVE CONSULTATION OVARY, LEFT, FSA1: - AT LEAST SEROUS BORDERLINE TUMOR ON RN TELEHEALTH SECTION - SIGNED OUT BY DR. ROGERS AND REPORTED DIRECTLY TO THE SURGEON - SPECIMEN CAME IN ON JUL 03, 2017 AT 2:01 P.M. AND WAS SIGNED OUT ON JUL 03, 2017 AT 2:15 P.M. MICROSCOPIC DESCRIPTION A-O: Performed SPECIAL STUDIES The following special studies were performed on this case with appropriate and reactive controls on block C2 and the interpretation is incorporated in the diagnostic report above: Synaptophysin: Positive Chromogranin: Positive Ki67: 1% The immunohistochemistry test was developed and its performance characteristics determined by [facility], Pathology Laboratory. It has not been cleared [...] qualified to perform high complexity clinical laboratory testing. Gross assessment was performed at [facility], Department of Pathology, [address] [place] [id number], Technical component was performed [facility], at Department of Pathology, [address] [place] [id number], Professional component was [facility], performed at Department of Pathology, [address] [place] [address], Specimen Performing Laboratory Tissue - Ovary, Left; Tissue - Uterus [facility] w/Cervix & Right Fallopian Tube; [address] [facility] Tissue - Appendix; Tissue - Lymph Node, [place] [address] Para-Aortic, Right, Station 6R; Tissue - Lymph Node, Pelvic, Left; Tissue - Lymph Node, Para-Aortic, Left, Station 6L; Tissue - Omentum; Tissue - Lymph Node, Pelvic, Right; Tissue - Cul-de-sac; Tissue - Pelvis, Right; Tissue - Pelvis, Left; Tissue - Abdomen, Left; Tissue - Abdomen, Right; Tissue - Ovary, Right Screen, urine (04/03/2017 10:29 AM) Component Value Ref Range Preg Test, Ur Negative Specimen Performing Laboratory Urine [facility] [address] [place] [address] ULTRA CUMULATIVE SUMMARY REPORT - SCAN (03/23/2017 1:20 PM)TRANSFUSION SERVICE REPORT - SCAN (03/21/2017 5:30 PM)Type and screen (03/20/2017 11:12 AM) Component Value Ref Range Ab Scrn NEGATIVE ABO Grouping O Rh Factor POS Specimen Performing Laboratory Blood [address] [address] CBC with platelet count + automated diff (03/20/2017 11:11 AM) Component Value Ref Range WBC 9.1 4.0 - 10.0 K/L RBC 4.55 4.00 - 5.00 M/L Hemoglobin 14.2 12.0 - 15.0 GM/DL Hematocrit 43.5 36.0 - 45.0 % MCV 95.7 82.0 - 99.0 fL MCH 31.2 27.0 - 33.0 pg MCHC 32.6 32.0 - 36.0 GM/DL RDW 15.3 (H) 10.3 - 14.2 % Platelets 481 (H) 150 - 430 K/CU MM MPV 9.6 6.5 - 10.5 fL nRBC 0 0 - 0 /100 WBC % Neutros 55 % % Lymphs 35 % % Monos 7 % % Eos 4 % % Baso 0 % # Neutros 5.00 1.80 - 8.00 K/L # Lymphs 3.20 1.48 - 4.50 K/L # Monos 0.60 0.00 - 1.30 K/L # Eos 0.30 0.00 - 0.50 K/L # Baso 0.00 0.00 - 0.20 K/L Specimen Performing Laboratory Blood [facility] [address] [place] [address] CBC with platelet count + automated diff (03/20/2017 11:11 AM) Specimen Performing Laboratory Blood Narrative The following orders were created for panel order CBC with platelet count + automated diff. Procedure Abnormality Status --------- ------ CBC with platelet count ...[[id number]]AbnormalFinal result Please view results for these tests on the individual orders. Basic Metabolic Panel (03/20/2017 11:11 AM) Component Value Ref Range Sodium 139 135 - 148 meq/L Potassium 4.6 3.6 - 5.5 meq/L Chloride 104 98 - 106 meq/L CO2 25 20 - 29 meq/L BUN 14 10 - 26 mg/dL Creatinine 1.10 0.50 - 1.20 mg/dL Glucose 120 (H) 70 - 110 mg/dL Calcium 9.4 8.5 - 10.5 mg/dL EGFR 55Comment: ESTIMATED GFR IS NOT ACCURATE mL/min/1.73 sq m CREATININE CLEARANCE IN PREDICTING GLOMERULAR FILTRATION RATE. ESTIMATED GFR IS NOT APPLICABLE FOR DIALYSIS PATIENTS. Specimen Performing Laboratory Blood [facility] [address] [place] [address] after 11/04/2016
--- OUTSIDE RECORDS SUMMARY | 2017-11-05 19:16 | XMS REPORT ---
:1975 [facility] [address] [place] [address] Care Team Providers Name Role Phone UNKNOWN, [...] Clinicians Facility Department ID 2017-10-22 2017-10-[address] [facility] [id number] 00:00:00 00:00:00 2017-10-01 2017-10-01 [facility] [id number] 13:59:00 13:59:00 CARA 2017-09-30 2017-09-30 [facility] [id number] 05:54:41 05:54:41 2017-09-29 2017-09-29 [facility] [id number] 18:37:00 18:37:00 2017-09-29 2017-09-29 Emergency E [facility] [id number] 16:00:00 16:00:00 Results Test Description Test Time Test Comments Text Results Atomic Results Result Comments BHCG, Serum, Qualitative 2017-10-01 16:02:00 Test Item Value Reference Range Comments Preg Qual [Se] (test code=BSHCG) Negative Negative Comprehensive Metabolic [id number] 16:01:00 Test Item Value Reference Range Comments [...] race is not provided, and the patient isAfrican-Bulgarian, multiply by 1.212. If sex is not [...] the National Kidney Foundation,http://nkdep.ni h.gov CBC with [id number] 15:19:00 Test Item Value Reference Range Comments [...] Lymph Abs (test code=ALYMPH) 2.3 K/cumm 0.5-4.6 Lipscomb Abs (test code=AMONO) 0.5 K/cumm 0.0-1.2 Eos Abs (test code=AEOS) 0.05 K/cumm 0.00-0.74 Baso Abs (test code=ABASO) 0.1 K/cumm 0.00-0.21 TISSUE [id number] 08:45:00Surgical Pathology Report Case: [id number] Authorizing Provider: Kelsie Roberts MD Collected: 04/03/2017 1326 Ordering Location: [facility] Received: 04/03/2017 1404 SERVICES Pathologist: [...] INCLUSION CYSTSMG/pl Signing Pathologist Direct Phone Line: [phone] signed by Noris Rogers MD on 04/09/2017 [...] nodes submitted or found Distant Metastasis: Not [id number]; 20439 X4; 43254; 05145 x10; 40712; 44457, 68105Jovonmrhqkdoomki, pelvic pain, ovarian cystA. Ovary, left; B. [...] cyst. Sectioning reveals patent pinpoint lumen. A inbound customer service representative section of the ovarian cyst wall is submitted for frozen section and the frozen section tissue remnants are submitted into A1.Section code: A2, fimbriated end entirely submitted; A3 to A4, remainder of fallopian tube, entirely submitted; A5 to A12 , inbound customer service representative sections of cyst wall.Specimen B is [...] no adhesions or obvious perforations are identified. Personal Injury Specialist cross sections are submitted into C1 and [...] Sectioning does not reveal any discrete lesion. Personal Injury Specialist sections are submitted into G1 through G4. [...] - AT LEAST SEROUS BORDERLINE TUMOR ON LOCOMOTIVE PIPE FITTER SECTION - SIGNED OUT BY DR. ROGERS [...] in the diagnostic report above:Synaptophysin: PositiveChromogranin : MoyxrhbsSi71: 1%The immunohistochemistry test was developed and its performance characteristics determined by [facility], Pathology Laboratory. It has not been [...] qualified to perform high complexity clinical laboratory testing.[facility], Department of Pathology, [address] [place] [address], [facility], [facility] , [address] [place] [address], On. [facility], Department of Pathology, [address] [place] [address], [id number] 13:33:00Medical Cytology Report Case: [id number] Authorizing Provider: Kelsie Roberts MD Collected: 2016 1519 Ordering Location: [facility] Received : 04/06/2017 0820 SERVICES Pathologist: Noris Rogers MD Specimen: Abdomen, Left LEFT DIAPHRAGMATIC WASHING (CYTOSPINS): - PREDOMINANTLY BLOOD; NO MALIGNANT CELLS IDENTIFIED Please also see surgical pathology report [id number] and cytopathology reports [id number] and 146. 17731Ililvbprehmfpkor; pelvic pain; ovarian cystLEFTDIAPHRAGMATIC WASHING4 cytospins prepared from 15 ml bloody fluidCollected: [id number]: [id number]. [facility], Department of Pathology, [address] [place] [address], Vj. [facility], Department of Pathology, [address] [place] [address], [id number] 13:29:00Medical Cytology Report Case: [id number] Authorizing Provider: Kelsie Roberts MD Collected: 2016 1514 Ordering Location: [facility] Received : 04/06/2017 0817 SERVICES Pathologist: Noris Rogers MD Specimen: Abdomen, Right RIGHT DIAPHRAGMATIC WASHING (CYTOSPINS): - SCANT CELLULARITY; NO MALIGNANT CELLS IDENTIFIED Please also see surgical pathology report [id number] and cytopathology reports [id number] and 147. 18468Pkryqfiyuuptlxfa; pelvic pain; ovarian cystRIGHTDIAPHRAGMATIC WASHING4 cytospins prepared from 1 cc bloody fluidCollected: [id number]: [id number]. [facility], Department of Pathology, [address] [place] [address], Su. [facility], Department of Pathology, [address] [place] [address], [id number] 13:27:00Medical Cytology Report Case: [id number] Authorizing Provider: Kelsie Roberts MD Collected: 2016 1315 Ordering Location: [facility] Received : 04/03/2017 1342 SERVICES Pathologist: Noris Rogers MD Specimen: Abdominal Cavity ABDOMINAL CAVITY WASHING (CYTOSPINS): - NO MALIGNANT CELLS IDENTIFIED Please also see surgical pathology report [id number] and cytopathology reports [id number] and 147. 05316Ewfracpxwfikdsov; pelvic pain; ovarian cystABDOMINAL CAVITY WASHINGS4 cytospins prepared from 28 ml colorless fluidCollected: [id number]: [id number] St. [facility], [facility] of [facility]ology, [address] [place], [place] [id number], Tel . [facility], Department of Pathology, [address] [place] [address], [id number] 06 :21:00 Test Item Value Reference Range Comments SODIUM (BEAKER) (test rtcn=086) 136 meq/L 135-148 POTASSIUM (BEAKER) (test rldp=295) 3.9 meq/L 3.6-5.5 CHLORIDE (BEAKER) (test zkpa=502) 104 meq/L 98-106 CO2 (BEAKER) (test cbkb=379) 21 meq/L 20-29 SCREEN, [id number] 10:58:00 Test Item Value Reference Range Comments TEST URINE (BEAKER) (test ggdh=097) Negative BASIC METABOLIC [id number] 12:28:00 Test Item Value Reference Range Comments SODIUM (BEAKER) (test 139 meq/L 135-148 vpmb=788) POTASSIUM (BEAKER) (test 4.6 meq/L 3.6-5.5 ufzt=649) CHLORIDE (BEAKER) (test 104 meq/L 98-106 pywb=441) CO2 (BEAKER) (test 25 meq/L 20-29 zhnj=312) BLOOD UREA NITROGEN 14 mg/dL 10-26 (BEAKER) (test mnpy=759) CREATININE (BEAKER) (test 1.10 mg/dL 0.50-1.20 mscz=004) GLUCOSE RANDOM (BEAKER) 120 mg/dL 70-110 (test liwu=368) CALCIUM (BEAKER) (test 9.4 mg/dL 8.5-10.5 wzjb=036) EGFR (BEAKER) (test 55 mL/min/1.73 sq m ESTIMATED GFR IS NOT nxpb=7970) ACCURATE CREATININE CLEARANCE IN PREDICTING GLOMERULAR FILTRATION RATE. ESTIMATED GFR IS NOT APPLICABLE FOR DIALYSIS PATIENTS. CBC W/PLT COUNT & AUTO [id number] 12:14:00 Test Item Value Reference Range Comments WHITE BLOOD CELL COUNT (BEAKER) (test jxkz=455) 9.1 K/ L 4.0-10.0 RED BLOOD CELL COUNT (BEAKER) (test sasd=395) 4.55 M/ L 4.00-5.00 HEMOGLOBIN (BEAKER) (test pdgr=378) 14.2 GM/DL 12.0-15.0 HEMATOCRIT (BEAKER) (test ixvc=944) 43.5 % 36.0-45.0 MEAN CORPUSCULAR VOLUME (BEAKER) (test gsfe=950) 95.7 fL 82.0-99.0 MEAN CORPUSCULAR HEMOGLOBIN (BEAKER) (test 31.2 pg 27.0-33.0 sfms=376) MEAN CORPUSCULAR HEMOGLOBIN CONC (BEAKER) (test 32.6 GM/DL 32.0-36.0 jums=800) RED CELL DISTRIBUTION WIDTH (BEAKER) (test 15.3 % 10.3-14.2 rzga=349) PLATELET COUNT (BEAKER) (test kvwo=255) 481 K/CU MM 150-430 MEAN PLATELET VOLUME (BEAKER) (test ghdw=265) 9.6 fL 6.5-10.5 NUCLEATED RED BLOOD CELLS (BEAKER) (test 0 /100 WBC 0-0 lnxy=169) NEUTROPHILS RELATIVE PERCENT (BEAKER) (test 55 % qfbh=635) LYMPHOCYTES RELATIVE PERCENT (BEAKER) (test 35 % dajw=930) MONOCYTES RELATIVE PERCENT (BEAKER) (test 7 % ymuf=337) EOSINOPHILS RELATIVE PERCENT (BEAKER) (test 4 % wrql=508) BASOPHILS RELATIVE PERCENT (BEAKER) (test 0 % pyto=187) NEUTROPHILS ABSOLUTE COUNT (BEAKER) (test 5.00 K/ L 1.80-8.00 ufgv=769) LYMPHOCYTES ABSOLUTE COUNT (BEAKER) (test 3.20 K/ L 1.48-4.50 dace=983) MONOCYTES ABSOLUTE COUNT (BEAKER) (test 0.60 K/ L 0.00-1.30 hbqq=600) EOSINOPHILS ABSOLUTE COUNT (BEAKER) (test 0.30 K/ L 0.00-0.50 ikcc=089) BASOPHILS ABSOLUTE COUNT (BEAKER) (test 0.00 K/ L 0.00-0.20 vnud=389)
[2017-11-05] MEDS ORDERED: LORazepam 2 MG/ML VIAL ONE (20:13)
[2017-11-05] MEDS ORDERED: LEVETIRACETAM 500 MG/5 ML VIAL IV ONE (20:14)
[2017-11-05] MEDS ORDERED: NA CHLORIDE 0.9% 1,000 ML ONE (20:14)
[2017-11-05] MEDS ORDERED: NA CHLORIDE 0.9% 100 ML IV ONE (20:16)
--- NOTE | 2017-11-05 20:41 | RAD REPORT ---
EXAM DESCRIPTION: CT - Head Brain Wo Cont - 11/05/2017 8:35 pm CLINICAL HISTORY: Weakness, dizziness, suspected seizure COMPARISON: July 2017 TECHNIQUE: Axial 5 mm thick images of the head were obtained without IV contrast. All CT scans are performed using dose optimization technique as appropriate and may include automated exposure control or mA/KV adjustment according to patient size. FINDINGS: No intracranial hemorrhage, mass, edema or shift of mid-line structures. No acute infarcti on changes seen. No abnormal extra-axial fluid collections. Ventricles are normal. Mastoid air cells and visualized portions of the paranasal sinuses are clear. No acute bony findings. IMPRESSION: Negative non-contrast CT head examination for acute finding. No significant change from comparison.
[2017-11-05] MEDS ORDERED: ACETAMINOPHEN 325 MG TABLET ONE (21:02)
--- NOTE | 2017-11-05 21:13 | RAD REPORT ---
EXAM DESCRIPTION: RAD - Chest Single View - 11/05/2017 8:35 pm CLINICAL HISTORY: Weakness, dizziness, cough COMPARISON: March 2017 TECHNIQUE: AP portable chest image was obtained 2022 hours . FINDINGS: Lungs are clear. Heart and vasculature are normal. No measurable pleural effusion and no p neumothorax. No gross bony abnormality seen. No acute aortic findings suspected. IMPRESSION: No acute cardiopulmonary process. No significant interval change.
[2017-11-05 21:29] LABS: Urine Blood NEGATIVE (NEG); Urine Glucose NEGATIVE (NEG); Urine Protein NEGATIVE (NEG); Urine Specific Gravity >1.030 (1.005-1.030)
[2017-11-05 21:44] LABS: Absolute Lymphocytes (CBC) 4.2 K/uL (0.7-4.9); Absolute Monocytes 0.7 K/uL (0.1-1.3); Absolute Neutrophil 5.3 K/uL (1.8-8.0); Basophils % 1.2 % (0-1.3); Hematocrit 41.6 % (36.0-45.0); MCH 29.7 pg (27.0-35.0); MCV 86.9 fL (80-100); MPV 9.5 fL (7.6-11.3); Monocytes % 7.2 % (3.3-12.3); RBC Red Blood Cell Count 4.79 M/uL (3.86-4.86)
[2017-11-05 21:45] LABS: Barbiturates NEGATIVE; Benzodiazepines POSITIVE; Cocaine POSITIVE; METHAMPHETAM NEGATIVE; Opiates NEGATIVE; Phencyclidine NEGATIVE; THC Cannibis POSITIVE
[2017-11-05 21:53] LABS: Bicarbonate 29 mEq/L (21-31); Glucose Level 96 mg/dL (65-120); Potassium 3.1 mEq/L (3.6-5.0); Sodium Level 138 mEq/L (135-145)
[2017-11-05 21:59] LABS: ALT/SGPT 23 IU/L (10-60); AST/SGOT 21 IU/L (10-42); Albumin 3.9 g/dL (3.2-5.5); Alkaline Phosphatase 82 IU/L (42-121); BUN Blood Urea Nitrogen 23 mg/dL (6-20); Bilirubin Direct 0.1 mg/dL (0-0.2); Bilirubin Total 0.6 mg/dL (0.3-1.2); Creatine Phosphokinase 77 IU/L (22-269); Glomerular Filtration Rate 57 mL/min (=/>90); Magnesium 2.1 mg/dL (1.8-2.5); Protein, Total 7.8 g/dL (6.0-8.3)
[2017-11-05] MEDS ORDERED: FENTANYL CITR 100 MCG/2 ML ONE (22:08)
[2017-11-05] MEDS ORDERED: ONDANSETRON 4 MG/2 ML VIAL ONE (22:08)
[2017-11-05 22:21] LABS: Alcohol Serum/Plasma < 10 mg/dl; Salicylates Level < 4.0 mg/dl (<30)
--- NOTE | 2017-11-05 22:41 | ER ---
Nurse's Notes [facility] Name: Kaycee Verma Age: 42 yrs Sex: Female : 1975 Arrival Date: 11/05/2017 Time: 19:14 Bed 28 Private MD: Diagnosis: Epileptic seizures related to external causes;Essential (primary) hypertension;Bipolar disorder;Hypokalemia;Cocaine abuse;Abuse of non-psychoactive substances Presentation: 11/05 19:15 Presenting complaint: Patient states: that she wasn't feeling well and got dizzy. 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 States she has a headache and is very anxious. Has run out of Propanolol, Clonazepam and Clonidine because she cannot afford them. Transition of care: patient was not received from another setting of care. Onset of symptoms was November 05, 2017. Care prior to arrival: None. 19:15 Method Of Arrival: EMS: [facility] 19:15 Acuity: KARLA 3 fc Triage Assessment: 19:50 General: Appears uncomfortable, Behavior is anxious. 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: 19:32 LMP N/A - Hysterectomy fc Historical: - Allergies: 19:32 Amoxicillin (Hives); fc 19:32 Erythromycin (Hives); fc - Home Meds: 19:32 Zoloft 100 mg Oral tab 1 tab once daily [Active]; Seroquel 300 mg Oral tab 1 tab fc nightly [Active]; clonazepam 1 mg oral tab 1 tab 3 times per day [Active]; clonidine HCl 0.2 mg Oral tab 1 tab 2 times per day [Active]; Protonix 40 mg Oral TbEC 1 tab once daily [Active]; hydroxyzine HCl 25 mg Oral tab 1 tab every 8 hours as needed [Active]; estrogen patch every 7 days [Active]; - PMHx: 19:32 Anxiety; Hypertension; Bipolar disorder; Depression; cancer-ovarian; shasta; Overdose; R fc sided ovary mass; Tachycardia; - PSHx: 19:32 Appendectomy; ; Hysterectomy; fc - Immunization history:: Last tetanus immunization: unknown. - Social history:: Smoking status: Patient/guardian denies using tobacco. - Family history:: not pertinent. Screenin:33 Abuse screen: Denies threats or abuse. Nutritional screening: No deficits noted. fc Tuberculosis screening: No symptoms or risk factors identified. Fall Risk Fall in past 12 months (25 points). No secondary diagnosis (0 pts). No IV (0 pts). Ambulatory Aid- None/Bed Rest/Nurse Assist (0 pts). Gait- Normal/Bed Rest/Wheelchair (0 pts) Mental Status- Overestimates/Forgets Limitations (15 pts.). Total Marvin Fall Scale indicates Low Risk Score (25-44 pts). Fall prevention measures have been instituted. Side Rails Up X 2 Placed close to Nursing Station Frequent Obs/Assesments occuring As available Patient and Family Educated on Fall Prevention Program and strategies. Assessment: 19:50 General: Appears uncomfortable, well groomed, Behavior is calm, anxious. Pain:. Neuro: cr4 Level of Consciousness is awake, alert, obeys commands, Oriented to person, place, time, Counter Top Assembler are weak bilaterally Moves all extremities. Speech is normal, Facial symmetry appears normal, Pupils are PERRLA, Reports headache frontal area, since after her siezure. Denies blurred vision difficulty swallowing, numbness photophobia. Cardiovascular: Reports chest pain, Denies diaphoresis, lightheadedness, palpitations, shortness of breath, Rhythm is regular Chest pain is described as vague, quality is pressure, is located in anterior chest wall began after siezure. Respiratory: Airway is patent Trachea midline Respiratory effort is even, unlabored, Respiratory pattern is regular, Breath sounds are clear bilaterally. GI: Abdomen is round non-distended, Bowel sounds present X 4 quads. Reports nausea. GI: Reports Patient currently denies diarrhea, vomiting. : Denies burning with urination, incontinence, urinary frequency, urgency. EENT: No deficits noted. Derm: No deficits noted. Musculoskeletal: No deficits noted. 20:50 Reassessment: No changes from previously documented assessment. Patient and/or family cr4 updated on plan of care and expected duration. Pain level reassessed. Patient is alert, oriented x 3, equal unlabored respirations, skin warm/dry/pink. anxiety better headache still present. 21:45 Reassessment: No changes from previously documented assessment. Patient and/or family cr4 updated on plan of care and expected duration. Pain level reassessed. Patient is alert, oriented x 3, equal unlabored respirations, skin warm/dry/pink. 22:45 Reassessment: Patient and/or family updated on plan of care and expected duration. Pain cr4 level reassessed. Patient is alert, oriented x 3, equal unlabored respirations, skin warm/dry/pink. Patient states feeling better. Patient states symptoms have improved. 23:00 Reassessment: was called multiple times by patient after orders for discharge cr4 with no answers. Patient also called [employer] for a ride. Patient stated she had no ride and was homeless.. Vital Signs: 19:32 BP 123 / 87; Pulse 76; Resp 18; Temp 98.4(O); Pulse Ox 96% on R/A; Weight 81.65 kg (R); fc Height 5 ft. 5 in. (165.10 cm) (R); Pain 7/10; 21:00 BP 113 / 67; Pulse 73; Resp 18; Pulse Ox 96% ; Pain 8/10; cr4 22:00 BP 110 / 74; Pulse 66; Resp 17; Pulse Ox 99% on R/A; rk2 22:45 Pain 2/10; cr4 23:00 BP 115 / 80; Pulse 65; Resp 18; Temp 98.3; Pulse Ox 99% ; Pain 0/10; cr4 19:32 Body Mass Index 29.95 (81.65 kg, 165.10 cm) fc [place] Coma Score: 19:50 Eye Response: spontaneous(4). Verbal Response: oriented(5). Motor Response: obeys cr4 commands(6). Total: 15. ED Course: 19:14 Patient arrived in ED. hb 19:29 Triage completed. fc 19:32 Arm band placed on Patient placed in an exam room, on a stretcher. fc 19:33 Patient has correct armband on for positive identification. Placed in gown. Bed in low fc position. Call light in reach. Side rails up X2. pvc monitor on. Pulse ox on. NIBP on. 19:45 Urine collected: clean catch specimen, clear. fc 19:55 Initial lab(s) drawn, by me, sent to lab. Inserted saline lock: 22 gauge in right fc forearm, using aseptic technique. Blood collected. 19:58 Víctor Eubanks MD is Attending Physician. cruz 20:00 Seizure precautions initiated. Warm blanket given. cr4 20:30 X-ray completed. Portable x-ray completed in exam room. Patient tolerated procedure ml well. 20:32 XRAY Chest (1 view) In Process Unspecified. EDMS 20:35 CT Head Brain wo Cont In Process Unspecified. EDMS 21:45 Notified ED physician of other migraine LOZANO. refused tylenol. cr4 22:40 Wu Flores MD is Referral Physician. cruz 23:15 No provider procedures requiring assistance completed. cr4 23:15 IV discontinued, intact, bleeding controlled, No redness/swelling at site. cr4 Administered Medications: 20:25 Drug: Ativan 1 mg Route: IVP; Site: right femoral; cr4 21:30 Follow up: Response: No adverse reaction; Anxiety decreased cr4 20:30 Drug: NS 0.9% 1000 ml Route: IV; Rate: 1 bolus; Site: right femoral; cr4 21:30 Follow up: IV Status: Completed infusion; IV Intake: 1000ml cr4 20:45 Drug: Keppra 1000 mg Route: IV; Rate: per protocol; Site: right forearm; cr4 20:55 Follow up: IV Status: Completed infusion; IV Intake: 100ml cr4 22:15 Drug: fentaNYL (PF) 25 mcg Route: IVP; Site: right forearm; cr4 22:45 Follow up: Pain 2/10 Adult; Response: No adverse reaction; Pain is decreased cr4 22:15 Drug: Zofran 2 mg Route: IVP; Site: right forearm; cr4 22:45 Follow up: Response: No adverse reaction cr4 23:02 Drug: Potassium Effervescent Tablet 50 mEq Route: PO; cr4 23:20 Follow up: Response: No adverse reaction cr4 Intake: 20:55 IV: 100ml; Total: 100ml. cr4 21:30 IV: 1000ml; Total: 1100ml. cr4 Outcome: 22:40 Discharge ordered by . cruz 23:24 Discharged to home ambulatory. rk2 23:24 Condition: good 23:24 Discharge instructions given to patient, Prescriptions given X 2. 23:25 Patient left the ED. rk2 Signatures: Dispatcher [employer] EDMS Víctor Eubanks MD MD cha Chretien, Felicia, RN RN fc Ruiz, Claudia, RN RN [email or web address] Renzo, Elida ml Rodríguez, Vita, RN RN hb Clarke, Cornelia, RN RN rk2 Corrections: (The following items were deleted from the chart) 19:34 19:33 Fall Risk None identified. [facility] 11/06 01:28 01:26 No provider procedures requiring assistance completed. cr4 cr4
--- NOTE | 2017-11-05 22:41 | EDPHYS ---
Physician Documentation [facility] Name: Kaycee Verma Age: 42 yrs Sex: Female : 1975 Arrival Date: 11/05/2017 Time: 19:14 Bed 28 Private MD: Víctor Tesfaye HPI: 11/05 20:05 This 42 yrs old Female presents to ER via EMS with complaints of Probable cruz Seizure. 20:05 The patient presents after having a single isolated seizure, that lasted 1 minute(s). cruz Character of seizure(s): Loss of consciousness: the patient did not lose consciousness, Motor activity: generalized. Seizure onset: just prior to arrival. Context: the seizure(s) was witnessed, by family. Seizure Hx: Last seizure: The patient's last seizure was approximately 1 year(s) ago. Associated injury: The patient did not suffer any apparent associated injury. Current symptoms: Currently, the patient is not experiencing any symptoms. The patient has not experienced similar symptoms in the past. 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 LMP N/A - Hysterectomy fc Historical: - Allergies: 19:32 Amoxicillin (Hives); fc 19:32 Erythromycin (Hives); fc - Home Meds: 19:32 Zoloft 100 mg Oral tab 1 tab once daily [Active]; Seroquel 300 mg Oral tab 1 tab fc nightly [Active]; clonazepam 1 mg oral tab 1 tab 3 times per day [Active]; clonidine HCl 0.2 mg Oral tab 1 tab 2 times per day [Active]; Protonix 40 mg Oral TbEC 1 tab once daily [Active]; hydroxyzine HCl 25 mg Oral tab 1 tab every 8 hours as needed [Active]; estrogen patch every 7 days [Active]; - PMHx: 19:32 Anxiety; Hypertension; Bipolar disorder; Depression; cancer-ovarian; shasta; Overdose; R fc sided ovary mass; Tachycardia; - PSHx: 19:32 Appendectomy; ; Hysterectomy; fc - Immunization history:: Last tetanus immunization: unknown. - Social history:: Smoking status: Patient/guardian denies using tobacco. - Family history:: not pertinent. ROS: 20:05 Constitutional: Negative for fever, chills, and weight loss, Eyes: Negative for injury, cruz pain, redness, and discharge, ENT: Negative for injury, pain, and discharge, Neck: Negative for injury, pain, and swelling, Cardiovascular: Negative for chest pain, palpitations, and edema, Respiratory: Negative for shortness of breath, cough, wheezing, and pleuritic chest pain, Abdomen/GI: Negative for abdominal pain, nausea, vomiting, diarrhea, and constipation, Back: Negative for injury and pain, : Negative for injury, bleeding, discharge, and swelling, MS/Extremity: Negative for injury and deformity, Skin: Negative for injury, rash, and discoloration, Psych: Negative for depression, anxiety, suicide ideation, homicidal ideation, and hallucinations, Allergy/Immunology: Negative for hives, rash, and allergies, Endocrine: Negative for neck swelling, polydipsia, polyuria, polyphagia, and marked weight changes, Hematologic/Lymphatic: Negative for swollen nodes, abnormal bleeding, and unusual bruising. 20:05 Neuro: Positive for seizure activity, weakness. Exam: 20:05 Constitutional: This is a well developed, well nourished patient who is awake, alert, cruz and in no acute distress. Head/Face: Normocephalic, atraumatic. Eyes: Pupils equal round and reactive to light, extra-ocular motions intact. Lids and lashes normal. Conjunctiva and sclera are non-icteric and not injected. Cornea within normal limits. Periorbital areas with no swelling, redness, or edema. ENT: Nares patent. No nasal discharge, no septal abnormalities noted. Tympanic membranes are normal and external auditory canals are clear. Oropharynx with no redness, swelling, or masses, exudates, or evidence of obstruction, uvula midline. Mucous membranes moist. Neck: Trachea midline, no thyromegaly or masses palpated, and no cervical lymphadenopathy. Supple, full range of motion without nuchal rigidity, or vertebral point tenderness. No Meningismus. Chest/axilla: Normal chest wall appearance and motion. Nontender with no deformity. No lesions are appreciated. Cardiovascular: Regular rate and rhythm with a normal S1 and S2. No gallops, murmurs, or rubs. Normal PMI, no JVD. No pulse deficits. Respiratory: Lungs have equal breath sounds bilaterally, clear to auscultation and percussion. No rales, rhonchi or wheezes noted. No increased work of breathing, no retractions or nasal flaring. Abdomen/GI: Soft, non-tender, with normal bowel sounds. No distension or tympany. No guarding or rebound. No evidence of tenderness throughout. Back: No spinal tenderness. No costovertebral tenderness. Full range of motion. Skin: Warm, dry with normal turgor. Normal color with no rashes, no lesions, and no evidence of cellulitis. MS/ Extremity: Pulses equal, no cyanosis. Neurovascular intact. Full, normal range of motion. Neuro: Awake and alert, GCS 15, oriented to person, place, time, and situation. Cranial nerves II-XII grossly intact. Motor strength 5/5 in all extremities. Sensory grossly intact. Cerebellar exam normal. Normal gait. Psych: Awake, alert, with orientation to person, place and time. Behavior, mood, and affect are within normal limits. Vital Signs: 19:32 BP 123 / 87; Pulse 76; Resp 18; Temp 98.4(O); Pulse Ox 96% on R/A; Weight 81.65 kg (R); fc Height 5 ft. 5 in. (165.10 cm) (R); Pain 7/10; 21:00 BP 113 / 67; Pulse 73; Resp 18; Pulse Ox 96% ; Pain 8/10; cr4 22:00 BP 110 / 74; Pulse 66; Resp 17; Pulse Ox 99% on R/A; rk2 22:45 Pain 2/10; cr4 23:00 BP 115 / 80; Pulse 65; Resp 18; Temp 98.3; Pulse Ox 99% ; Pain 0/10; cr4 19:32 Body Mass Index 29.95 (81.65 kg, 165.10 cm) Marly Coma Score: 19:50 Eye Response: spontaneous(4). Verbal Response: oriented(5). Motor Response: obeys cr4 commands(6). Total: 15. MDM: 19:58 Patient medically screened. [facility] 21:45 Data reviewed: vital signs, nurses notes, lab test result(s), EKG, radiologic studies, [facility] CT scan, plain films. 11/05 20:05 Order name: Basic Metabolic Panel; Complete Time: 22:38 cruz 11/05 20:05 Order name: BNP; Complete Time: 22:38 [facility] 11/05 20:05 Order name: CBC with Diff; Complete Time: 22:38 [facility] 11/05 20:05 Order name: Ckmb; Complete Time: 22:38 [facility] 11/05 20:05 Order name: CPK; Complete Time: 22:38 [facility] 11/05 20:05 Order name: LFT's; Complete Time: 22:38 [facility] 11/05 20:05 Order name: Magnesium; Complete Time: 22:38 [facility] 11/05 20:05 Order name: PT-INR; Complete Time: 22:38 [facility] 11/05 20:05 Order name: Ptt, Activated; Complete Time: 22:38 [facility] 11/05 20:05 Order name: Troponin (emerg Dept Use Only); Complete Time: 22:38 [facility] 11/05 20:05 Order name: Acetaminophen; Complete Time: 22:38 [facility] 11/05 20:05 Order name: ETOH Level; Complete Time: 22:38 [facility] 11/05 20:05 Order name: Salicylate; Complete Time: 22:38 [facility] 11/05 20:05 Order name: Urine Drug Screen; Complete Time: 22:38 [facility] 11/05 20:05 Order name: XRAY Chest (1 view); Complete Time: 21:43 [facility] 11/05 20:05 Order name: EKG; Complete Time: 20:06 [facility] 11/05 20:05 Order name: Cardiac monitoring; Complete Time: 21:10 [facility] 11/05 20:05 Order name: EKG - Nurse/Tech; Complete Time: 01:31 [facility] 11/05 20:05 Order name: IV Saline Lock; Complete Time: 20:34 [facility] 11/05 20:05 Order name: Labs collected and sent; Complete Time: 20:34 [facility] 11/05 20:05 Order name: O2 Per Protocol; Complete Time: 21:10 [facility] 11/05 20:05 Order name: O2 Sat Monitoring; Complete Time: 21:10 [facility] 11/05 20:05 Order name: CT Head Brain wo Cont; Complete Time: 21:43 [facility] 11/05 20:34 Order name: Urine Dipstick--Ancillary (enter results); Complete Time: 21:43 em1 11/05 20:05 Order name: Urine Dipstick-Ancillary (obtain specimen); Complete Time: 20:29 [facility] 11/05 20:05 Order name: Seizure Precautions; Complete Time: 01:31 [facility] Administered Medications: 20:25 Drug: Ativan 1 mg Route: IVP; Site: right femoral; cr4 21:30 Follow up: Response: No adverse reaction; Anxiety decreased cr4 20:30 Drug: NS 0.9% 1000 ml Route: IV; Rate: 1 bolus; Site: right femoral; cr4 21:30 Follow up: IV Status: Completed infusion; IV Intake: 1000ml cr4 20:45 Drug: Keppra 1000 mg Route: IV; Rate: per protocol; Site: right forearm; cr4 20:55 Follow up: IV Status: Completed infusion; IV Intake: 100ml cr4 22:15 Drug: fentaNYL (PF) 25 mcg Route: IVP; Site: right forearm; cr4 22:45 Follow up: Pain 2/10 Adult; Response: No adverse reaction; Pain is decreased cr4 22:15 Drug: Zofran 2 mg Route: IVP; Site: right forearm; cr4 22:45 Follow up: Response: No adverse reaction cr4 23:02 Drug: Potassium Effervescent Tablet 50 mEq Route: PO; cr4 23:20 Follow up: Response: No adverse reaction cr4 Disposition: 11/05/17 22:40 Discharged to Home. Impression: Epileptic seizures related to external causes, Essential (primary) hypertension, Bipolar disorder, Hypokalemia, Cocaine abuse, Abuse of non-psychoactive substances. - Condition is Stable. - Discharge Instructions: Stimulant Use Disorder-Cocaine, Potassium Content of Foods, Polysubstance Abuse, Seizure, Adult, Seizure, Adult, Afvc-wu-[id number], Hypokalemia. - Prescriptions for Keppra 500 mg Oral Tablet - take 1 tablet by ORAL route every 12 hours; 20 tablet. Klonopin 1 mg Oral Tablet - take 1 tablet by ORAL route every 12 hours As needed; 30 tablet. - Medication Reconciliation Form, Thank You Letter, Antibiotic Education, Prescription Opioid Use form. - Follow up: Private Physician; When: 2 - 3 days; Reason: Recheck today's complaints, Continuance of care, Re-evaluation by your physician. Follow up: Wu Flores; When: 2 - 3 days; Reason: Recheck today's complaints, Continuance of care, Re-evaluation by your physician. - Problem is new. - Symptoms have improved. Signatures: Dispatcher [employer] EDVíctor Flood MD MD cha Chretien, Felicia, RN RN Gena Ferris RN RN cr4 [place], Cornelia, RN RN rk2
[2017-11-05] MEDS ORDERED: POTASSIUM 25 MEQ EFFERV TAB ONE (23:00)
[2017-11-05 23:55] VITALS: TEMP 98.4
[2017-11-05 23:57] VITALS: BP 110/74; O2SAT 99
--- NOTE | 2017-11-08 22:47 | EKG ---
Test Date: 2017-11-05 Test Time: 21:45:17 [employer] Farmer: DONTRELL MEASUREMENT RESULTS: Intervals: Rate: 69 FL: 194 QRSD: 96 QT: 442 QTc: 473 [place]: P: 61 FL: 194 QRS: 42 T: 33 INTERPRETIVE STATEMENTS: Normal sinus rhythm Normal ECG No previous ECG available for comparison Electronically Signed On 11-08-17 22:46:20 CDT by Wilman Chun
== END 2017-11-05 23:25 | disposition home or self-care (01) ==
LOC: ER 19:13
DX: G40.509 Epileptic seizures related to external causes, not intractable, without status epilepticus (principal); F14.10 Cocaine abuse, uncomplicated; F55.8 Abuse of other non-psychoactive substances; E87.6 Hypokalemia; F31.9 Bipolar disorder, unspecified; I10 Essential (primary) hypertension; F41.9 Anxiety disorder, unspecified; Z85.43 Personal history of malignant neoplasm of ovary; Z88.0 Allergy status to penicillin; Z88.3 Allergy status to other anti-infective agents
CPT/HCPCS: 36415; 70450; 71045; 80048; 80076; 80307; 80320; 80329; 81003; 82550; 82553; 83735; 83880; 84484; 85025; 85610; 85730; 93005; 99285; J1953; J2405; J3010; J7030

== ENCOUNTER 2017-12-23 03:22 | Emergency (ER) | payer SELFPAY ==
--- OUTSIDE RECORDS SUMMARY | 2017-12-23 03:25 | XMS REPORT ---
:1975 [facility] [address] [place] [address] Care Team Providers Name Role Phone UNKNOWN, REFFERING Primary Care Provider Unavailable CARA RODAS Unavailable Unavailable ROBERTS, KELSIE SANDHU Unavailable Unavailable Problems This patient has no known problems. Allergies, Adverse Reactions, Alerts This patient has no known allergies or adverse reactions. Medications This patient has no known medications. Encounters Start End Encounter Admission Attending Care Care Encounter Date/Time Date/Time Type Type Clinicians Facility Department ID 2017-10-22 2017-10-22 Outpatient [facility] [id number] 00:00:00 00:00:00 2017-10-01 2017-10-01 Emergency [facility] [id number] 13:59:00 13:59:00 CARA 2017-09-30 2017-09-30 Emergency [facility] [id number] 05:54:41 05:54:41 2017-09-29 2017-09-29 [facility] [id number] 18:37:00 18:37:00 2017-09-29 2017-09-29 Emergency E [facility] [id number] 16:00:00 16:00:00 Results Test Description Test Time Test Comments Text Results Atomic Results Result Comments BHCG, Serum, Qualitative 2017-10-01 16:02:00 Test Item Value Reference Range Comments Preg Qual [Se] (test code=BSHCG) Negative Negative Comprehensive Metabolic [id number] 16:01:00 Test Item Value Reference Range Comments [...] mmol/L 7-16 code=AGAP) Estimated GFR (test >60 mL/min/1.73m2 eGFR (estimated Glomerular code=GFR) Filtration Rate) is an estimated value,calculated from the patient's serum creatinine using the MDRD equation.It is NOT the patient's actual GFR. The eGFR provides a more clinicallyuseful measure of kidney disease than serum creatinine alone.This calculation takes sex and race into account, if the informationis provided. If the race is not provided, and the patient isAfrican-Cook Islander, multiply by 1.212. If sex is not provided, and thepatient is female, multiply by 0.742. Results for patients <18 years ofage have not been validated by the MDRD study and should be interpretedwith caution.eGFR Result Interpretation:eGFR > or=60 is in the Normal RangeeGFR < 60 may mean kidney diseaseeGFR < 15 may mean kidney failureRanges recommended by the National Kidney Foundation,http://nkdep.nih .gov CBC with [id number] 15:19:00 Test Item Value Reference Range Comments [...] Lymph Abs (test code=ALYMPH) 2.3 K/cumm 0.5-4.6 [place]assen Abs (test code=AMONO) 0.5 K/cumm 0.0-1.2 Eos Abs (test code=AEOS) 0.05 K/cumm 0.00-0.74 Baso Abs (test code=ABASO) 0.1 K/cumm 0.00-0.21 TISSUE [id number] 08:45:00Surgical Pathology Report Case: [id number] Authorizing Provider: Kelsie Roberts MD Collected: 04/03/2017 1336 Ordering Location: [facility] Received: 04/03/2017 1404 SERVICES Pathologist: Noris [...] INCLUSION CYSTSMG/pl Signing Pathologist Direct Phone Line: [phone] signed by Noris Rogers MD on 04/09/2017 [...] nodes submitted or found Distant Metastasis: Not [id number]; 91142 X4; 63708; 88407 x10; 92508; 05959, 18958Ybkmzotencukmmjw, pelvic pain, ovarian cystA. Ovary, left; B. [...] cyst. Sectioning reveals patent pinpoint lumen. A senior sales representative section of the ovarian cyst wall is submitted for frozen section and the frozen section tissue remnants are submitted into A1.Section code: A2, fimbriated end entirely submitted; A3 to A4, remainder of fallopian tube, entirely submitted; A5 to A12 , senior sales representative sections of cyst wall.Specimen B [...] no adhesions or obvious perforations are identified. Hospice Team Lead cross sections are submitted into C1 and [...] Sectioning does not reveal any discrete lesion. Hospice Team Lead sections are submitted into G1 through G4. [...] - AT LEAST SEROUS BORDERLINE TUMOR ON SOAP DRIER TENDER SECTION - SIGNED OUT BY DR. ROGERS [...] in the diagnostic report above:Synaptophysin: PositiveChromogranin : HlwkdqceEm10: 1%The immunohistochemistry test was developed and its performance characteristics determined by [facility], Pathology Laboratory. It has not been [...] qualified to perform high complexity clinical laboratory testing.[facility], Department of Pathology, [address] [place] [address], [facility], [facility] , [address] [place] [address], [place]. [facility], Department of Pathology, [address] [place], [place] [address], [id number] 13:33:00Medical Cytology Report Case: [id number] Authorizing Provider: Kelsie Roberts MD Collected: 2016 1519 Ordering Location: [facility] PER[facility] Received : 04/06/2017 0820 SERVICES Pathologist: Noris Rogers MD Specimen: Abdomen, Left LEFT DIAPHRAGMATIC WASHING (CYTOSPINS): - PREDOMINANTLY BLOOD; NO MALIGNANT CELLS IDENTIFIED Please also see surgical pathology report [id number] and cytopathology reports [id number] and 146. [id number]; pelvic pain; ovarian cystLEFTDIAPHRAGMATIC WASHING4 cytospins prepared from 15 ml bloody fluidCollected: [id number]: [id number]. [facility], Department of Pathology, [address] [place] [address], Nu. [facility], Department of Pathology, [address] [place] [address], [id number] 13:29:00Medical Cytology Report Case: [id number] Authorizing Provider: Kelsie Roberts MD Collected: 2016 1514 Ordering Location: [facility] PERIOPERATIVE Received : 04/06/2017 0817 SERVICES Pathologist: Noris Rogers MD Specimen: Abdomen, Right RIGHT DIAPHRAGMATIC WASHING (CYTOSPINS): - SCANT CELLULARITY; NO MALIGNANT CELLS IDENTIFIED Please also see surgical pathology report [id number] and cytopathology reports [id number] and 147. [id number]; pelvic pain; ovarian cystRIGHTDIAPHRAGMATIC WASHING4 cytospins prepared from 1 cc bloody fluidCollected: [id number]: [id number]. [facility], Department of Pathology, [address] [place] [address], My. [facility], Department of Pathology, [address] [place] [address], [id number] 13:27:00Medical Cytology Report Case: [id number] Authorizing Provider: Kelsie Roberts MD Collected: 2016 1315 Ordering Location: [facility] PER[facility] Received : 04/03/2017 1342 SERVICES Pathologist: Noris Rogers MD Specimen: Abdominal Cavity ABDOMINAL CAVITY WASHING (CYTOSPINS): - NO MALIGNANT CELLS IDENTIFIED Please also see surgical pathology report [id number] and cytopathology reports [id number] and 147. [id number]; pelvic pain; ovarian cystABDOMINAL CAVITY WASHINGS4 cytospins prepared from 28 ml colorless fluidCollected: [id number]: [id number]. Elizabeth Hospital ([place] Department of Pathology, [address] [place] [address], Tel . [facility], Department of Pathology, [address] [place] [address], [id number] 06 :21:00 Test Item Value Reference Range Comments SODIUM (BEAKER) (test ntny=436) 136 meq/L 135-148 POTASSIUM (BEAKER) (test wxpf=216) 3.9 meq/L 3.6-5.5 CHLORIDE (BEAKER) (test mluq=130) 104 meq/L 98-106 CO2 (BEAKER) (test xdyq=569) 21 meq/L 20-29 SCREEN, [id number] 10:58:00 Test Item Value Reference Range Comments TEST URINE (BEAKER) (test hhpk=105) Negative BASIC METABOLIC [id number] 12:28:00 Test Item Value Reference Range Comments SODIUM (BEAKER) (test 139 meq/L 135-148 mwaz=138) POTASSIUM (BEAKER) (test 4.6 meq/L 3.6-5.5 wuqk=257) CHLORIDE (BEAKER) (test 104 meq/L 98-106 ngkp=366) CO2 (BEAKER) (test 25 meq/L 20-29 xlcd=499) BLOOD UREA NITROGEN 14 mg/dL 10-26 (BEAKER) (test ikrg=681) CREATININE (BEAKER) (test 1.10 mg/dL 0.50-1.20 dqrq=345) GLUCOSE RANDOM (BEAKER) 120 mg/dL 70-110 (test tljp=493) CALCIUM (BEAKER) (test 9.4 mg/dL 8.5-10.5 jzit=553) EGFR (BEAKER) (test 55 mL/min/1.73 sq m ESTIMATED GFR IS NOT adtv=1165) ACCURATE CREATININE CLEARANCE IN PREDICTING GLOMERULAR FILTRATION RATE. ESTIMATED GFR IS NOT APPLICABLE FOR DIALYSIS PATIENTS. CBC W/PLT COUNT & AUTO [id number] 12:14:00 Test Item Value Reference Range Comments WHITE BLOOD CELL COUNT (BEAKER) (test tyff=274) 9.1 K/ L 4.0-10.0 RED BLOOD CELL COUNT (BEAKER) (test yaht=613) 4.55 M/ L 4.00-5.00 HEMOGLOBIN (BEAKER) (test zbdl=362) 14.2 GM/DL 12.0-15.0 HEMATOCRIT (BEAKER) (test gqwb=859) 43.5 % 36.0-45.0 MEAN CORPUSCULAR VOLUME (BEAKER) (test ttka=134) 95.7 fL 82.0-99.0 MEAN CORPUSCULAR HEMOGLOBIN (BEAKER) (test 31.2 pg 27.0-33.0 tifw=289) MEAN CORPUSCULAR HEMOGLOBIN CONC (BEAKER) (test 32.6 GM/DL 32.0-36.0 mpji=083) RED CELL DISTRIBUTION WIDTH (BEAKER) (test 15.3 % 10.3-14.2 oloo=857) PLATELET COUNT (BEAKER) (test wfmz=993) 481 K/CU MM 150-430 MEAN PLATELET VOLUME (BEAKER) (test ydyi=088) 9.6 fL 6.5-10.5 NUCLEATED RED BLOOD CELLS (BEAKER) (test 0 /100 WBC 0-0 fsag=162) NEUTROPHILS RELATIVE PERCENT (BEAKER) (test 55 % slrd=020) LYMPHOCYTES RELATIVE PERCENT (BEAKER) (test 35 % smsn=921) MONOCYTES RELATIVE PERCENT (BEAKER) (test 7 % mfjq=153) EOSINOPHILS RELATIVE PERCENT (BEAKER) (test 4 % kpfu=903) BASOPHILS RELATIVE PERCENT (BEAKER) (test 0 % uapx=898) NEUTROPHILS ABSOLUTE COUNT (BEAKER) (test 5.00 K/ L 1.80-8.00 ukjy=898) LYMPHOCYTES ABSOLUTE COUNT (BEAKER) (test 3.20 K/ L 1.48-4.50 uwev=360) MONOCYTES ABSOLUTE COUNT (BEAKER) (test 0.60 K/ L 0.00-1.30 ioct=689) EOSINOPHILS ABSOLUTE COUNT (BEAKER) (test 0.30 K/ L 0.00-0.50 svtb=091) BASOPHILS ABSOLUTE COUNT (BEAKER) (test 0.00 K/ L 0.00-0.20 tzjy=289)
--- OUTSIDE RECORDS SUMMARY | 2017-12-23 03:25 | XMS REPORT | Clinical Summary ---
:1975 Author Organization [facility] Address [address] [place] [address] Care Team Providers Name Role Phone Asked, [...] ( Primary Dx); DO Medication refill after 12/22/2016 Social History Tobacco Use Types Packs/Day Years Used Date Current Every Day Smoker Smokeless Tobacco: Never Used Sex Assigned at Date Recorded Not on file Last Filed Vital Signs Vital Sign Reading Time Taken Blood Pressure 115/57 10/01/2017 11:12 AM [facility] Pulse 77 10/01/2017 11:12 AM [facility] Temperature 36.9 C (98.5 F) 10/01/2017 11:12 AM [facility] Respiratory Rate 18 10/01/2017 11:12 AM [facility] Oxygen Saturation 98% 10/01/2017 11:12 AM [facility] Inhaled Oxygen Concentration - - Weight - - Height 162.6 cm (5' 4") 10/01/2017 11:14 AM [facility] Body Mass Index - - Plan of Treatment Not on file Results ECG ED Preliminary Interpretation - NOT AN ORDER (10/01/2017 11:46 AM) Narrative Hiram Jimenez MD 10/02/20178:17 PM ECG ED Preliminary Interpretation - Not an Order Performed by: HIRAM JIMENEZ Authorized by: HIRAM JIMENEZ ECG reviewed by ED Physician in the absence of a home organizer: yes Previous ECG: Previous ECG:Unavailable Interpretation: Interpretation: [...] Range Ventricular rate 74 Atrial rate 74 UT interval 184 QRSD interval 98 QT interval 428 QTC interval 475 P axis 1 29 QRS axis 1 7 T wave axis 12 EKG impression Normal sinus rhythm-Minimal voltage criteria for LVH, may be normal variant-Cannot rule out Anterior infarct , age undetermined-Abnormal ECG- In automated comparison with ECG of 30-SEP-2017 15:58,-No sig nificant change was found- Specimen Performing Laboratory [facility] [address] [facility] [place]. [id number] after 12/22/2016 Insurance Payer Benefit Plan / Group Subscriber ID Type Phone Address [employer] MEDICA[employer] [place] [employer] xxxxxxxxx O Home: [address] [facility] [phone] [place], [place] [id number]
--- OUTSIDE RECORDS SUMMARY | 2017-12-23 03:25 | XMS REPORT | Clinical Summary ---
:1975 Author Organization [facility] Address [address] [place] [address] Phone Care Team Providers Name Role Phone [...] Lucero 04/03/2017 Procedure Pass 04/03/2017 Surgery Roberts, Kelsie ROBOTIC LAPAROSCOPY MD Lucero 04/02/2017 Anesthesia Event Shayan Castillo AA 03/24/2017 Procedure Pass 03/20/2017 Hospital Encounter Pre-Admission Testing 03/20/2017 Orders Only General Internal Medicine 02/10/2017 Procedure Pass 02/02/2017 Hospital Encounter Pre-Admission Canceled (Patient) Testing after 12/22/2016 Social History Tobacco Use Types [...] Not on file Implants Implanted Type Area Primary Clinician Device Expiration Model / Identifier Date Serial / Lot Hemstas Mph Absorb Hemo 3gr [id number] - Formerly [facility], [facility] Cement/F N/A: MEDAFOR [id number] / Implanted: Qty: 1 on 04/03/2017 by Kelsie Roberts MD iller/Lawrence Pelvis HEMOSTATIC NA / hesive POLYMER RENEE [id number] Procedures Procedure Name Priority Date/Time Associated Diagnosis Comments ROBOTIC LAPAROSCOPY 04/03/2017 12:00 PM CDT MENOMETRORRAGIA; PELVIC PAIN; OVARIAN CYST Special Needs GERRY TO ASSIST04/01 Office contacting, confirmed with Jakub04/01 Moved to noon, confirmed with Sanam @ office-tp after 12/22/2016 Results EKG-SCANNED (04/06/2017 10:40 AM)RHYTHM STRIP - SCAN (04/06/2017 10:40 AM) INTRAOPERATIVE PATH REPORT - SCAN (04/06/2017 10:40 AM)Electrolytes (04/04/2017 5:45 AM) Component Value Ref Range Sodium 136 135 - 148 meq/L Potassium 3.9 3.6 - 5.5 meq/L Chloride 104 98 - 106 meq/L CO2 21 20 - 29 meq/L Specimen Performing Laboratory Blood [facility] [address] [place] [address] ANESTHESIA PERIPHERAL BLOCK (04/03/2017 4:05 PM) Narrative [...] supine Prep: ChloraPrep Patient monitoring: heart rate, cafeteria monitor and continuous pulse ox Block type: TAP [...] supine Prep: ChloraPrep Patient monitoring: heart rate, cafeteria monitor and continuous pulse ox Block type: TAP [...] Range Case Report Medical Cytology Report Case: [id number] Authorizing Provider:Kelsie Roberts MD Collected: 04/03/2017 1519 Ordering Location: [facility] Received: 04/06/2017 0820 SERVICES Pathologist: Noris Rogers MD Specimen:Abdomen, Left DIAGNOSIS LEFT DIAPHRAGMATIC WASHING (CYTOSPINS): - PREDOMINANTLY BLOOD; NO MALIGNANT CELLS IDENTIFIED COMMENT Please also see surgical pathology report [id number] and cytopathology reports [id number] and [id number]. CPT Code(s) 26077 CLINICAL DATA Menometrorrhagia; pelvic pain; ovarian cyst SPECIMEN SOURCE LEFT DIAPHRAGMATIC WASHING GROSS DESCRIPTION 4 cytospins prepared from 15 ml bloody fluid Collected: [id number] Received: [id number] MICROSCOPIC DESCRIPTION Performed. STATEMENT OF ADEQUACY Satisfactory Technical component was performed at [facility], Department of Pathology, [address] [place] [id number], Professional component was performed [facility], at Department of Pathology, [address] [place] [address], Specimen Performing Laboratory Washings - Abdomen, Left [facility] [address] [place] [address] Tissue Exam (04/03/2017 1:36 PM) Component Value Ref Range Case Report Surgical Pathology Report Case: [id number] Authorizing Provider:Kelsie Roberts MD Collected: 04/03/2017 1336 Ordering Location: [facility] Received: 04/03/2017 1404 SERVICES Pathologist: Noris Rogers MD Specimens: A) - Ovary, Left, LEFTOVARY B) - Uterus w/Cervix & Right Fallopian Tube, UTERUS , CERVIX, RIGHT FALLOPIAN C) - Appendix, APPENDIX [...] CYSTS MG/pl Signing Pathologist Direct Phone Line: [phone] SYNOPTIC REPORT OVARY: Oophorectomy, Salpingo-Oophorectomy, Subtotal Oophorectomy [...] or found Distant Metastasis:Not applicable CPT Code(s) 11060; 44437 X4; 84219; 74203 x10; 07350; 60327, 64329 CLINICAL HISTORY Menometrorrhagia, pelvic pain, ovarian cyst [...] Sectioning reveals paten t pinpoint lumen. A insurance service representative section of the ovarian cyst wall is submitted for frozen section and the frozen section tissue remnants are submitted into A1. Section code: A2, fimbriated end entirely submitted; A3 to A4, remainder of fallopian tube, entirely submitted; A5 to A12, insurance service representative sections of cyst wall. Specimen B [...] no adhesions or obvious perforations are identified. Water Quality Assistant cross sections are submitted into C1 and [...] Sectioning does not reveal any discrete lesion. Water Quality Assistant sections are submitted into G1 through G4. [...] - AT LEAST SEROUS BORDERLINE TUMOR ON MOLD DESIGN ENGINEER SECTION - SIGNED OUT BY DR. ROGERS [...] developed and its performance characteristics determined by [facility], Pathology Laboratory. It has not been cleared [...] laboratory testing. Gross assessment was performed at [facility], Department of Pathology, [address] [place] [id number], Technical component was performed [facility], at Department of Pathology, [address] [place] [id number], Professional component was [facility], performed at Department of Pathology, [address] [place] [address], [place] [address], Specimen Performing Laboratory Tissue - Ovary, Left; Tissue - Uterus [facility] w/Cervix & Right Fallopian Tube; Tissue - [address] [place] [address] Appendix; Tissue - Lymph Node, [place] [address] Para-Aortic, Right, Station 6R; Tissue - Lymph [...] Test, Ur Negative Specimen Performing Laboratory Urine [facility] [address] [place] [address] ULTRA CUMULATIVE SUMMARY REPORT - SCAN (03/23/2017 1:20 PM)TRANSFUSION SERVICE REPORT - SCAN (03/21/2017 5:30 PM)Type and screen (03/20/2017 11:12 AM) Component Value Ref Range Ab Scrn NEGATIVE ABO Grouping O Rh Factor POS Specimen Performing Laboratory Blood [facility] [address] [place] [address] CBC with platelet count + automated diff [...] - 0.20 K/L Specimen Performing Laboratory Blood [facility] [address] [place] [address] CBC with platelet count + automated diff (03/20/2017 11:11 AM) Specimen Performing Laboratory Blood Narrative The following orders were created for panel order CBC with platelet count + automated diff. Procedure Abnormality Status --------- ------ CBC with platelet count ...[[id number]]AbnormalFinal result Please view results for these tests [...] FOR DIALYSIS PATIENTS. Specimen Performing Laboratory Blood [facility] [address] [place] [address] after 12/22/2016
[2017-12-23] MEDS ORDERED: ONDANSETRON 4 MG (ODT) TAB ONE (03:54)
[2017-12-23] MEDS ORDERED: DIAZEPAM 5 MG TABLET ONE (03:54)
--- NOTE | 2017-12-23 04:04 | ER ---
Nurse's Notes [facility] Name: Kaycee Porter Age: 42 yrs Sex: Female : 1975 Arrival Date: 12/23/2017 Time: 03:23 Bed 20 Private MD: Nimesh Boston E Diagnosis: Epileptic seizures related to external causes;Underdosing of benzodiazepines Presentation: 12/23 03:20 Presenting complaint: EMS states: that pt had seizure per bystanders at 0300. Upon fc awakening pt complained of left side numbness. Pt complains to staff that she is unable to sleep, has nausea, vomiting and diarrhea; all after getting out of snf 4 days ago. Also that since being released she has not been able to get back into see her dr and is out of her Clonidine, Lorazepam, Ambien and Propanolol. Transition of care: patient was not received from another setting of care. Onset of symptoms was December 23, 2017 at 03:00. Risk Assessment: Do you want to hurt yourself or someone else? Patient reports no desire to harm self or others. Initial Sepsis Screen: Does the patient meet any 2 criteria? No. Patient's initial sepsis screen is negative. Does the patient have a suspected source of infection? No. Patient's initial sepsis screen is negative. Care prior to arrival: None. 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 - Social history:: Smoking status: Patient uses tobacco products, smokes one-half pack cigarettes per day, Patient/guardian denies using alcohol, street drugs. - Ebola Screening: : Patient negative for fever greater than or equal to 101.5 degrees Fahrenheit, and additional compatible Ebola Virus Disease symptoms Patient denies exposure to infectious person Patient denies travel to an Ebola-affected area in the 21 days before illness onset. - Family history:: not pertinent. - Hospitalizations: : No recent hospitalization is reported. Screenin:20 Abuse screen: Denies threats or abuse. Nutritional screening: No deficits noted. fc Tuberculosis screening: No symptoms or risk factors identified. Fall Risk None identified. Assessment: 03:34 General: Appears uncomfortable, Behavior is cooperative, appropriate for age, anxious. jd3 Pain: Complains of pain in head and abdomen Quality of pain is described as pressure, Pain began 30 min ago. Is continuous, Also complains of nausea. Neuro: Level of Consciousness is awake, alert, obeys commands, Oriented to person, place, time, situation, Residential Carpet Installer are equal bilaterally Moves all extremities. Speech is normal, Facial symmetry appears normal, Pupils are PERRLA, Intact. Cardiovascular: Heart tones S1 S2 present Capillary refill < 3 seconds Patient's skin is warm and dry. Respiratory: Airway is patent Respiratory effort is even, unlabored, Respiratory pattern is regular, symmetrical, Breath sounds are clear bilaterally. GI: Abdomen is round Bowel sounds present X 4 quads. Abd is soft and non tender X 4 quads. Reports lower abdominal pain, nausea. : No signs and/or symptoms were reported regarding the genitourinary system. EENT: No signs and/or symptoms were reported regarding the EENT system. Derm: Skin is intact, Skin is dry, Skin is normal, Skin temperature is warm. Musculoskeletal: Circulation, motion, and sensation intact. Range of motion: intact in all extremities. 04:17 Reassessment: Patient appears in no apparent distress at this time. Patient and/or jd3 family updated on plan of care and expected duration. Pain level reassessed. Patient is alert, oriented x 3, equal unlabored respirations, skin warm/dry/pink. pt reported understanding of discharge instructions, even and steady gait upon discharge. General: Appears in no apparent distress. uncomfortable, Behavior is calm, cooperative, appropriate for age. Vital Signs: 03:20 BP 154 / 97; Pulse 94; Resp 18; Temp 99.2(O); Pulse Ox 97% on R/A; Weight 81.65 kg (R); fc Height 5 ft. 5 in. (165.10 cm) (R); Pain 0/10; 04:18 BP 123 / 78; Pulse 80; Resp 17 S; Pulse Ox 97% on R/A; Pain 0/10; jd3 03:20 Body Mass Index 29.95 (81.65 kg, 165.10 cm) fc Marly Coma Score: 03:20 Eye Response: spontaneous(4). Verbal Response: oriented(5). Motor Response: obeys fc commands(6). Total: 15. ED Course: 03:20 Arm band placed on Patient placed in an exam room, on a stretcher. fc 03:20 Patient has correct armband on for positive identification. Placed in gown. Bed in low fc position. Call light in reach. Side rails up X2. Seizure precautions initiated. manager monitoring on. Pulse ox on. NIBP on. 03:20 No provider procedures requiring assistance completed. fc 03:23 Patient arrived in ED. ds1 03:23 Nimesh Boston MD is Private Physician. ds1 03:24 Raoul Garvin MD is Attending Physician. rn 03:27 Triage completed. fc 03:34 Luciano Babin RN is Primary Nurse. jd3 03:35 Inserted saline lock: 20 gauge in right antecubital area, using aseptic technique. jd3 Blood collected. 04:19 IV discontinued, intact, bleeding controlled, No redness/swelling at site. Pressure jd3 dressing applied. Administered Medications: 03:57 Drug: Valium 5 mg Route: PO; jd3 04:21 Follow up: Response: Medication administered at discharge. jd3 03:57 Drug: Zofran 4 mg Route: PO; jd3 04:21 Follow up: Response: Medication administered at discharge. jd3 Outcome: 04:03 Discharge ordered by . rn 04:19 Discharged to home ambulatory, with family. jd3 04:19 Condition: stable 04:19 Discharge instructions given to patient, family, Instructed on discharge instructions, follow up and referral plans. medication usage, Demonstrated understanding of instructions, follow-up care, medications, Prescriptions given X 1. 04:21 Patient left the ED. jd3 Signatures: Karyn Roa RN RN Kathie Kumar ds1 Garvin, Raoul, MD MD rn Babin, Luciano, RN RN jd3 Corrections: (The following items were deleted from the chart) 04:20 03:00 Inserted saline lock: 20 gauge in right antecubital area, using aseptic jd3 technique. Blood collected. taniya
--- NOTE | 2017-12-23 04:04 | EDPHYS ---
Physician Documentation [facility] Name: Kaycee Porter Age: 42 yrs Sex: Female : 1975 Arrival Date: 12/23/2017 Time: 03:23 Bed 20 Private MD: Nimesh Boston E ED Physician Raoul Garvin HPI: 12/23 04:00 This 42 yrs old Female presents to ER via EMS with complaints of Seizure. rn 04:00 The patient presents after having a single isolated seizure. Seizure onset: just prior rn to arrival. Current symptoms: Currently, the patient is not experiencing any symptoms. The patient has experienced similar episodes in the past. Reports seizure today, reports out of her clonazepam/clonidine/ambien, doesn't take anything else for seizures, was in residential and no refills given, trying to f/u with her prescribing doctor. Had single seizure today. Hasn't been sleeping for 3 days. . 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 - Social history:: Smoking status: Patient uses tobacco products, smokes one-half pack cigarettes per day, Patient/guardian denies using alcohol, street drugs. - Ebola Screening: : Patient negative for fever greater than or equal to 101.5 degrees Fahrenheit, and additional compatible Ebola Virus Disease symptoms Patient denies exposure to infectious person Patient denies travel to an Ebola-affected area in the 21 days before illness onset. - Family history:: not pertinent. - Hospitalizations: : No recent hospitalization is reported. ROS: 04:00 Constitutional: Negative for fever, chills, and weight loss, Eyes: Negative for injury, rn pain, redness, and discharge, Neck: Negative for injury, pain, and swelling, Cardiovascular: Negative for chest pain, palpitations, and edema, Respiratory: Negative for shortness of breath, cough, wheezing, and pleuritic chest pain, Abdomen/GI: Negative for abdominal pain, constipation Back: Negative for injury and pain, MS/Extremity: Negative for injury and deformity, Skin: Negative for injury, rash, and discoloration, Neuro: Negative for headache, weakness Exam: 04:00 Constitutional: This is a well developed, well nourished patient who is awake, alert, rn and in no acute distress. Head/Face: Normocephalic, atraumatic. Eyes: Pupils equal round and reactive to light, extra-ocular motions intact. Lids and lashes normal. Conjunctiva and sclera are non-icteric and not injected. Cornea within normal limits. Periorbital areas with no swelling, redness, or edema. Neck: Trachea midline, no thyromegaly or masses palpated, and no cervical lymphadenopathy. Supple, full range of motion without nuchal rigidity, or vertebral point tenderness. No Meningismus. Cardiovascular: Regular rate and rhythm with a normal S1 and S2. No gallops, murmurs, or rubs. Normal PMI, no JVD. No pulse deficits. Respiratory: Lungs have equal breath sounds bilaterally, clear to auscultation and percussion. No rales, rhonchi or wheezes noted. No increased work of breathing, no retractions or nasal flaring. Abdomen/GI: Soft, non-tender, with normal bowel sounds. No distension or tympany. No guarding or rebound. No evidence of tenderness throughout. MS/ Extremity: Pulses equal, no cyanosis. Neurovascular intact. Full, normal range of motion. Equal circumference. Neuro: Awake and alert, GCS 15, oriented to person, place, time, and situation. Cranial nerves II-XII grossly intact. Motor strength 5/5 in all extremities. Sensory grossly intact. Cerebellar exam normal. Normal gait. 04:00 ECG was reviewed by the Attending Physician. rn Vital Signs: 03:20 BP 154 / 97; Pulse 94; Resp 18; Temp 99.2(O); Pulse Ox 97% on R/A; Weight 81.65 kg (R); fc Height 5 ft. 5 in. (165.10 cm) (R); Pain 0/10; 04:18 BP 123 / 78; Pulse 80; Resp 17 S; Pulse Ox 97% on R/A; Pain 0/10; jd3 03:20 Body Mass Index 29.95 (81.65 kg, 165.10 cm) fc Marly Coma Score: 03:20 Eye Response: spontaneous(4). Verbal Response: oriented(5). Motor Response: obeys fc commands(6). Total: 15. MDM: 03:24 Patient medically screened. rn 04:00 Differential diagnosis: seizure, withdrawal from medication. Data reviewed: vital rn signs, nurses notes, EKG, and as a result, I will discharge patient. Counseling: I had a detailed discussion with the patient and/or guardian regarding: the historical points, exam findings, and any diagnostic results supporting the discharge/admit diagnosis, the need for outpatient follow up, to return to the emergency department if symptoms worsen or persist or if there are any questions or concerns that arise at home. Special discussion: I discussed with the patient/guardian in detail that at this point there is no indication for admission to the hospital. It is understood, however, that if the symptoms persist or worsen the patient needs to return immediately for re-evaluation. Based on the history and exam findings, there is no indication for further emergent testing or inpatient evaluation. I discussed with the patient/guardian the need to see the primary care provider for further evaluation of the symptoms. 12/23 03:49 Order name: EKG; Complete Time: 03:49 rn 12/23 03:49 Order name: EKG - Nurse/Tech; Complete Time: 03:52 rn EC:00 Rate is 89 beats/min. Rhythm is regular. QRS [place] is Normal. [place] interval is normal. QRS rn interval is normal. QT interval is normal. No Q waves. T waves are Normal. No ST changes noted. Clinical impression: Normal ECG. Interpreted by me. Administered Medications: 03:57 Drug: Valium 5 mg Route: PO; jd3 04:21 Follow up: Response: Medication administered at discharge. jd3 03:57 Drug: Zofran 4 mg Route: PO; jd3 04:21 Follow up: Response: Medication administered at discharge. jd3 Disposition: 12/23/17 04:03 Discharged to Home. Impression: Epileptic seizures related to external causes, Underdosing of benzodiazepines. - Condition is Stable. - Discharge Instructions: Seizure, Adult, Benzodiazepine Withdrawal. - Prescriptions for Valium 2 mg Oral Tablet - take 1 tablet by ORAL route every 8 hours As needed; 6 tablet. - Medication Reconciliation Form, Thank You Letter, Antibiotic Education, Prescription Opioid Use form. - Follow up: Private Physician; When: As needed; Reason: Recheck today's complaints, Re-evaluation by your physician. - Problem is new. - Symptoms have improved. Signatures: Karyn Roa RN RN Raoul Garvin MD MD rn Davies, Jonathon, RN RN jd3 Corrections: (The following items were deleted from the chart) 04:21 04:03 12/23/2017 04:03 Discharged to Home. Impression: Epileptic seizures related to jd3 external causes; Underdosing of benzodiazepines. Condition is Stable. Forms are Medication Reconciliation Form, Thank You Letter, Antibiotic Education, Prescription Opioid Use. Follow up: Private Physician; When: As needed; Reason: Recheck today's complaints, Re-evaluation by your physician. Problem is new. Symptoms have improved. rn
[2017-12-23 04:25] VITALS: BP 123/78; O2SAT 97
--- NOTE | 2017-12-23 07:41 | EKG ---
Test Date: 2017-12-23 Test Time: 03:49:25 Development Administrator: TEMI MEASUREMENT RESULTS: Intervals: Rate: 89 DE: 160 QRSD: 90 QT: 388 QTc: 472 Fred: P: 61 DE: 160 QRS: 24 T: 25 INTERPRETIVE STATEMENTS: Normal sinus rhythm Normal ECG Compared to ECG 09/08/2017 19:21:23 No significant changes Electronically Signed On 12-23-17 07:40:39 CDT by Wilman Chun
== END 2017-12-23 04:21 | disposition home or self-care (01) ==
LOC: ER 03:22
DX: R56.9 Unspecified convulsions (principal); T42.4X6A Underdosing of benzodiazepines, initial encounter; Z91.138 Patient's unintentional underdosing of medication regimen for other reason; I10 Essential (primary) hypertension; Z88.1 Allergy status to other antibiotic agents
CPT/HCPCS: 93005; 99284

== ENCOUNTER 2017-12-23 14:17 | Emergency (ER) | payer SELFPAY ==
--- OUTSIDE RECORDS SUMMARY | 2017-12-23 14:20 | XMS REPORT ---
:1975 [facility] Address [address] [place] [address] Care Team Providers Name Role Phone UNKNOWN, [...] Clinicians Facility Department ID 2017-10-22 2017-10-22 Outpatient [facility] [id number] 00:00:00 00:00:00 2017-10-01 2017-10-01 Emergency [facility] [id number] 13:59:00 13:59:00 CARA 2017-09-30 2017-09-30 Emergency [facility] [id number] 05:54:41 05:54:41 2017-09-29 2017-09-29 [facility] [id number] 18:37:00 18:37:00 2017-09-29 2017-09-29 Emergency E [facility] [id number] 16:00:00 16:00:00 Results Test Description Test Time Test Comments Text Results Atomic Results Result Comments BHCG, Serum, Qualitative 2017-10-01 16:02:00 Test Item Value Reference Range Comments Preg Qual [Se] (test code=BSHCG) Negative Negative Comprehensive Metabolic [id number] 16:01:00 Test Item Value Reference Range Comments [...] race is not provided, and the patient isAfrican-Brazilian, multiply by 1.212. If sex is not [...] the National Kidney Foundation,http://nkdep.nih .gov CBC with [id number] 15:19:00 Test Item Value Reference Range Comments [...] Lymph Abs (test code=ALYMPH) 2.3 K/cumm 0.5-4.6 [place] Abs (test code=AMONO) 0.5 K/cumm 0.0-1.2 Eos Abs (test code=AEOS) 0.05 K/cumm 0.00-0.74 Baso Abs (test code=ABASO) 0.1 K/cumm 0.00-0.21 TISSUE [id number] 08:45:00Surgical Pathology Report Case: [id number] Authorizing Provider: Kelsie Roberts MD Collected: 04/03/2017 1336 Ordering Location: [facility] Received: 04/03/2017 1404 SERVICES [...] INCLUSION CYSTSMG/pl Signing Pathologist Direct Phone Line: [phone] signed by Noris Rogers MD on 04/09/2017 [...] nodes submitted or found Distant Metastasis: Not [id number]; 33508 X4; 95499; 47805 x10; 51304; 75611, 10018Bspkefsottsmklod, pelvic pain, ovarian cystA. Ovary, left; B. [...] cyst. Sectioning reveals patent pinpoint lumen. A accounts receivable representative section of the ovarian cyst wall is submitted for frozen section and the frozen section tissue remnants are submitted into A1.Section code: A2, fimbriated end entirely submitted; A3 to A4, remainder of fallopian tube, entirely submitted; A5 to A12 , accounts receivable representative sections of cyst wall.Specimen B is [...] no adhesions or obvious perforations are identified. Chief Quality Officer cross sections are submitted into C1 and [...] Sectioning does not reveal any discrete lesion. Chief Quality Officer sections are submitted into G1 through G4. [...] - AT LEAST SEROUS BORDERLINE TUMOR ON MEDICAL CHARGE ENTRY SPECIALIST SECTION - SIGNED OUT BY DR. ROGERS [...] in the diagnostic report above:Synaptophysin: PositiveChromogranin : FirtuyhmTo05: 1%The immunohistochemistry test was developed and its performance characteristics determined by [facility], Pathology Laboratory. It has not been [...] testing.[facility], Department of Pathology, [address] [place] [address], [facility] , [address] [place] [address], Mk. [facility], Department of Pathology, [address] [place], [place] [address], [id number] 13:33:00Medical Cytology Report Case: [id number] Authorizing Provider: Kelsie Roberts MD Collected: 2016 1519 Ordering Location: [facility] Received : 04/06/2017 0820 SERVICES Pathologist: Noris Rogers MD Specimen: Abdomen, Left LEFT DIAPHRAGMATIC WASHING (CYTOSPINS): - PREDOMINANTLY BLOOD; NO MALIGNANT CELLS IDENTIFIED Please also see surgical pathology report [id number] and cytopathology reports [id number] and 146. 66239Whoputkdhlltgypp; pelvic pain; ovarian cystLEFTDIAPHRAGMATIC WASHING4 cytospins prepared from 15 ml bloody fluidCollected: [id number]: [id number]. [facility], Department of Pathology, [address] [place] [address], [address] [facility], Department of Pathology, [address] [place] [address], [id number] 13:29:00Medical Cytology Report Case: [id number] Authorizing Provider: Kelsie Roberts MD Collected: 2016 1514 Ordering Location: [facility] PERIOPERATIVE Received : 04/06/2017 0817 SERVICES Pathologist: Noris Rogers MD Specimen: Abdomen, Right RIGHT DIAPHRAGMATIC WASHING (CYTOSPINS): - SCANT CELLULARITY; NO MALIGNANT CELLS IDENTIFIED Please also see surgical pathology report [id number] and cytopathology reports [id number] and 147. 54957Grtbkedehwgmmrpo; pelvic pain; ovarian cystRIGHTDIAPHRAGMATIC WASHING4 cytospins prepared from 1 cc bloody fluidCollected: [id number]: [id number]. [facility], Department of Pathology, [address] [place] [address], Gg. [facility], Department of Pathology, [address] [place] [address], [id number] 13:27:00Medical Cytology Report Case: [id number] Authorizing Provider: Kelsie Roberts MD Collected: 2016 1315 Ordering Location: [facility] Received : 04/03/2017 1342 SERVICES Pathologist: Noris Rogers MD Specimen: Abdominal Cavity ABDOMINAL CAVITY WASHING (CYTOSPINS): - NO MALIGNANT CELLS IDENTIFIED Please also see surgical pathology report [id number] and cytopathology reports [id number] and 147. 30143Eutogwhioacjpyir; pelvic pain; ovarian cystABDOMINAL CAVITY WASHINGS4 cytospins prepared from 28 ml colorless fluidCollected: [id number]: [id number] [facility], Department of Pathology, [address] [place] [address], Tel . [facility], Department of Pathology, [address] [place] [address], [id number] 06 :21:00 Test Item Value Reference Range Comments SODIUM (BEAKER) (test xivg=322) 136 meq/L 135-148 POTASSIUM (BEAKER) (test lmat=940) 3.9 meq/L 3.6-5.5 CHLORIDE (BEAKER) (test tbeu=959) 104 meq/L 98-106 CO2 (BEAKER) (test fidb=344) 21 meq/L 20-29 SCREEN, [id number] 10:58:00 Test Item Value Reference Range Comments TEST URINE (BEAKER) (test zgry=894) Negative BASIC METABOLIC [id number] 12:28:00 Test Item Value Reference Range Comments SODIUM (BEAKER) (test 139 meq/L 135-148 owel=032) POTASSIUM (BEAKER) (test 4.6 meq/L 3.6-5.5 gnke=685) CHLORIDE (BEAKER) (test 104 meq/L 98-106 jtdb=346) CO2 (BEAKER) (test 25 meq/L 20-29 pbsv=867) BLOOD UREA NITROGEN 14 mg/dL 10-26 (BEAKER) (test ngcr=988) CREATININE (BEAKER) (test 1.10 mg/dL 0.50-1.20 nfqx=270) GLUCOSE RANDOM (BEAKER) 120 mg/dL 70-110 (test ncbj=465) CALCIUM (BEAKER) (test 9.4 mg/dL 8.5-10.5 ofuv=967) EGFR (BEAKER) (test 55 mL/min/1.73 sq m ESTIMATED GFR IS NOT sjmp=2157) ACCURATE CREATININE CLEARANCE IN PREDICTING GLOMERULAR FILTRATION RATE. ESTIMATED GFR IS NOT APPLICABLE FOR DIALYSIS PATIENTS. CBC W/PLT COUNT & AUTO [id number] 12:14:00 Test Item Value Reference Range Comments WHITE BLOOD CELL COUNT (BEAKER) (test byuf=420) 9.1 K/ L 4.0-10.0 RED BLOOD CELL COUNT (BEAKER) (test splf=820) 4.55 M/ L 4.00-5.00 HEMOGLOBIN (BEAKER) (test gmyv=773) 14.2 GM/DL 12.0-15.0 HEMATOCRIT (BEAKER) (test lqdm=945) 43.5 % 36.0-45.0 MEAN CORPUSCULAR VOLUME (BEAKER) (test nshs=832) 95.7 fL 82.0-99.0 MEAN CORPUSCULAR HEMOGLOBIN (BEAKER) (test 31.2 pg 27.0-33.0 rvob=270) MEAN CORPUSCULAR HEMOGLOBIN CONC (BEAKER) (test 32.6 GM/DL 32.0-36.0 zgnu=161) RED CELL DISTRIBUTION WIDTH (BEAKER) (test 15.3 % 10.3-14.2 pllx=875) PLATELET COUNT (BEAKER) (test cfnz=153) 481 K/CU MM 150-430 MEAN PLATELET VOLUME (BEAKER) (test uohf=858) 9.6 fL 6.5-10.5 NUCLEATED RED BLOOD CELLS (BEAKER) (test 0 /100 WBC 0-0 eblt=800) NEUTROPHILS RELATIVE PERCENT (BEAKER) (test 55 % xhrs=495) LYMPHOCYTES RELATIVE PERCENT (BEAKER) (test 35 % csnd=560) MONOCYTES RELATIVE PERCENT (BEAKER) (test 7 % outw=604) EOSINOPHILS RELATIVE PERCENT (BEAKER) (test 4 % rqkp=906) BASOPHILS RELATIVE PERCENT (BEAKER) (test 0 % huol=074) NEUTROPHILS ABSOLUTE COUNT (BEAKER) (test 5.00 K/ L 1.80-8.00 kcvu=338) LYMPHOCYTES ABSOLUTE COUNT (BEAKER) (test 3.20 K/ L 1.48-4.50 ijwv=652) MONOCYTES ABSOLUTE COUNT (BEAKER) (test 0.60 K/ L 0.00-1.30 wyva=951) EOSINOPHILS ABSOLUTE COUNT (BEAKER) (test 0.30 K/ L 0.00-0.50 tdev=792) BASOPHILS ABSOLUTE COUNT (BEAKER) (test 0.00 K/ L 0.00-0.20 gcpr=837)
--- OUTSIDE RECORDS SUMMARY | 2017-12-23 14:20 | XMS REPORT | Clinical Summary ---
:1975 Author Organization [facility] Address [address] [place] [address] Phone Care Team Providers Name Role Phone [...] Not on file Implants Implanted Type Area Hosiery Mender Device Expiration Model / Identifier Date Serial / Lot Hemstas Mph Absorb Hemo 3gr [id number] - [facility] Cement/F N/A: MEDAFOR [id number] / Implanted: Qty: 1 on 04/03/2017 by Kelsie Roberts MD iller/Lawrence Pelvis HEMOSTATIC NA / hesive POLYMER RENEE [id number] Procedures Procedure Name Priority Date/Time Associated Diagnosis [...] 29 meq/L Specimen Performing Laboratory Blood [facility] [address] [place] [address] ANESTHESIA PERIPHERAL BLOCK (04/03/2017 4:05 PM) Narrative [...] supine Prep: ChloraPrep Patient monitoring: heart rate, monitor worker and continuous pulse ox Block type: TAP [...] supine Prep: ChloraPrep Patient monitoring: heart rate, monitor worker and continuous pulse ox Block type: TAP [...] Range Case Report Medical Cytology Report Case: [id number] Authorizing Provider:Kelsie Roberts MD Collected: 04/03/2017 1519 Ordering Location: [facility] PERIOPER[facility] Received: 04/06/2017 0820 SERVICES Pathologist: Noris Rogers MD Specimen:Abdomen, Left DIAGNOSIS LEFT DIAPHRAGMATIC WASHING (CYTOSPINS): - PREDOMINANTLY BLOOD; NO MALIGNANT CELLS IDENTIFIED COMMENT Please also see surgical pathology report [id number] and cytopathology reports [id number] and [id number]. CPT Code(s) 93986 CLINICAL DATA Menometrorrhagia; pelvic pain; ovarian cyst SPECIMEN SOURCE LEFT DIAPHRAGMATIC WASHING GROSS DESCRIPTION 4 cytospins prepared from 15 ml bloody fluid Collected: [id number] Received: [id number] MICROSCOPIC DESCRIPTION Performed. STATEMENT OF ADEQUACY Satisfactory Technical component was performed at [facility], Department of Pathology, [address] [place] [address], Professional component was performed [facility], at Department of Pathology, [address] [place] [address], Specimen Performing Laboratory Washings - Abdomen, Left [facility] [address] [place] [address] Tissue Exam (04/03/2017 1:36 PM) Component Value Ref Range Case Report Surgical Pathology Report Case: [id number] Authorizing Provider:Kelsie Roberts MD Collected: 04/03/2017 1336 Ordering Location: [facility] PERIOPER[facility] Received: 04/03/2017 1404 SERVICES Pathologist: [...] CYSTS MG/pl Signing Pathologist Direct Phone Line: [phone] SYNOPTIC REPORT OVARY: Oophorectomy, Salpingo-Oophorectomy, Subtotal Oophorectomy [...] or found Distant Metastasis:Not applicable CPT Code(s) 04358; 87971 X4; 64599; 12388 x10; 36539; 82404, 54516 CLINICAL HISTORY Menometrorrhagia, pelvic pain, ovarian cyst [...] Sectioning reveals paten t pinpoint lumen. A training representative section of the ovarian cyst wall is submitted for frozen section and the frozen section tissue remnants are submitted into A1. Section code: A2, fimbriated end entirely submitted; A3 to A4, remainder of fallopian tube, entirely submitted; A5 to A12, training representative sections of cyst wall. Specimen B [...] no adhesions or obvious perforations are identified. Otr Owner Operator cross sections are submitted into C1 and [...] Sectioning does not reveal any discrete lesion. Otr Owner Operator sections are submitted into G1 through G4. [...] - AT LEAST SEROUS BORDERLINE TUMOR ON KICK PLATE INSTALLER SECTION - SIGNED OUT BY DR. ROGERS [...] developed and its performance characteristics determined by [facility], Pathology Laboratory. It has not been [...] laboratory testing. Gross assessment was performed at [facility], Department of Pathology, [address] [place] [address], Technical component was performed [facility], at Department of Pathology, [address] [place] [address], Professional component was [facility], performed at Department of Pathology, [address] [place] [address], [place] [address], Specimen Performing Laboratory Tissue - Ovary, Left; Tissue - Uterus [facility] w/Cervix & Right Fallopian Tube; Tissue - [address] [place] [address] Appendix; Tissue - Lymph Node, [place] [address] Para-Aortic, Right, Station 6R; Tissue - Lymph [...] Test, Ur Negative Specimen Performing Laboratory Urine [facility] [address] [place] [address] ULTRA CUMULATIVE SUMMARY REPORT - SCAN (03/23/2017 1:20 PM)TRANSFUSION SERVICE REPORT - SCAN (03/21/2017 5:30 PM)Type and screen (03/20/2017 11:12 AM) Component Value Ref Range Ab Scrn NEGATIVE ABO Grouping O Rh Factor POS Specimen Performing Laboratory Blood [facility] [address] [place] [address] CBC with platelet count + automated diff [...] - 0.20 K/L Specimen Performing Laboratory Blood [facility] [address] [place] [address] CBC with platelet count + automated diff (03/20/2017 11:11 AM) Specimen Performing Laboratory Blood Narrative The following orders were created for panel order CBC with platelet count + automated diff. Procedure Abnormality Status --------- ------ CBC with platelet count ...[[id number]]AbnormalFinal result Please view results for these tests [...] FOR DIALYSIS PATIENTS. Specimen Performing Laboratory Blood [facility] [address] [place] [address] after 12/22/2016
--- OUTSIDE RECORDS SUMMARY | 2017-12-23 14:20 | XMS REPORT | Clinical Summary ---
:1975 Author Organization [facility] Address [address] [place] [address] Care Team Providers Name Role Phone Asked, [...] Taken Blood Pressure 115/57 10/01/2017 11:12 AM HELICOPTER UTILITY AIRCREWMAN Pulse 77 10/01/2017 11:12 AM HELICOPTER UTILITY AIRCREWMAN Temperature 36.9 C (98.5 F) 10/01/2017 11:12 AM HELICOPTER UTILITY AIRCREWMAN Respiratory Rate 18 10/01/2017 11:12 AM HELICOPTER UTILITY AIRCREWMAN Oxygen Saturation 98% 10/01/2017 11:12 AM HELICOPTER UTILITY AIRCREWMAN Inhaled Oxygen Concentration - - Weight - - Height 162.6 cm (5' 4") 10/01/2017 11:14 AM HELICOPTER UTILITY AIRCREWMAN Body Mass Index - - Plan of Treatment Not on file Results ECG ED Preliminary Interpretation - NOT AN ORDER (10/01/2017 11:46 AM) Narrative Hiram Jimenez MD 10/02/20178:17 PM ECG ED Preliminary Interpretation - Not an Order Performed by: HIRAM JIMENEZ Authorized by: HIRAM JIMENEZ ECG reviewed by ED Physician in the absence of a supervisor white sugar: yes Previous ECG: Previous ECG:Unavailable Interpretation: Interpretation: [...] Range Ventricular rate 74 Atrial rate 74 OK interval 184 QRSD interval 98 QT interval 428 QTC interval 475 P axis 1 29 QRS axis 1 7 T wave axis 12 EKG impression Normal sinus rhythm-Minimal voltage criteria for LVH, may be normal variant-Cannot rule out Anterior infarct , age undetermined-Abnormal ECG- In automated comparison with ECG of 30-SEP-2017 15:58,-No sig nificant change was found- Specimen Performing Laboratory [facility] [address] [place] [address] after 12/22/2016 Insurance Payer Benefit Plan / Group Subscriber ID Type Phone Address [employer] MEDICAID [employer] [place] [employer] M[employer] xxxxxxxxx O Home: [address] [phone] [place], [place] [address]
[2017-12-23] MEDS ORDERED: NA CHLORIDE 0.9% 1,000 ML ONE (15:26)
[2017-12-23] MEDS ORDERED: DIPHENHYDRAMINE 50 MG/ML VIAL ONE (15:27)
[2017-12-23] MEDS ORDERED: METOCLOPRAMIDE 10 MG/2mL INJ ONE (15:27)
[2017-12-23] MEDS ORDERED: KETOROLAC 30 MG/ML INJ ONE (15:27)
[2017-12-23] MEDS ORDERED: LEVETIRACETAM 500 MG/5 ML VIAL IV ONE (15:27)
[2017-12-23] MEDS ORDERED: NA CHLORIDE 0.9% 100 ML IV ONE (15:31)
[2017-12-23 15:45] LABS: Absolute Monocytes 0.7 K/uL (0.1-1.3); Absolute Neutrophil 7.5 K/uL (1.8-8.0); Basophils % 0.3 % (0-1.3); Eosinophils % 1.9 % (0-4.4); Hematocrit 37.3 % (36.0-45.0); Lymphocytes % 19.3 % (15.3-44.8); MCH 29.7 pg (27.0-35.0); MCV 89.5 fL (80-100); MPV 9.8 fL (7.6-11.3); Monocytes % 6.4 % (3.3-12.3); RBC Red Blood Cell Count 4.17 M/uL (3.86-4.86)
[2017-12-23] MEDS ORDERED: PROMETHAZINE 25 MG/ML VIAL ONE (15:45)
[2017-12-23 15:52] LABS: Protime INR 0.97
[2017-12-23 16:01] LABS: Bicarbonate 22 mEq/L (21-31); Glucose Level 132 mg/dL (65-120); Potassium 3.1 mEq/L (3.6-5.0); Sodium Level 140 mEq/L (135-145)
[2017-12-23 16:07] LABS: ALT/SGPT 18 IU/L (10-60); AST/SGOT 17 IU/L (10-42); Albumin 3.2 g/dL (3.2-5.5); Alkaline Phosphatase 87 IU/L (42-121); BUN Blood Urea Nitrogen 15 mg/dL (6-20); Bilirubin Direct < 0.1 mg/dL (0-0.2); Bilirubin Total 0.3 mg/dL (0.3-1.2); Protein, Total 7.1 g/dL (6.0-8.3)
[2017-12-23 16:10] LABS: Alcohol Serum/Plasma < 10 mg/dl
[2017-12-23 16:49] LABS: Barbiturates NEGATIVE; Benzodiazepines POSITIVE; Cocaine NEGATIVE; METHAMPHETAM NEGATIVE (NEGATIVE); Opiates POSITIVE; Phencyclidine NEGATIVE; THC Cannibis NEGATIVE
[2017-12-23 16:55] LABS: Urine Blood 2+ (NEG); Urine Glucose NEGATIVE (NEG); Urine Protein TRACE (NEG); Urine Specific Gravity >1.030 (1.005-1.030); Urine pH 5.5 (5.0-7.0)
--- NOTE | 2017-12-23 17:00 | EDPHYS ---
Physician Documentation [facility] Name: Kaycee Porter Age: 42 yrs Sex: Female : 1975 Arrival Date: 12/23/2017 Time: 14:20 Bed 26 Private MD: Carlos Alberto Garrido ED Physician Krishna Fields HPI: 12/23 15:31 This 42 yrs old Female presents to ER via EMS with complaints of Seizure. jr8 15:31 The patient presents after having a single isolated seizure, the episode(s) was jr8 witnessed, by family. Character of seizure(s): Loss of consciousness: the patient experienced loss of consciousness, Motor activity: generalized, Incontinence: none, Apnea: the patient did not experience apnea, Circulation: the patient did not experience evidence of pulse disturbance, Eye movements: the eyes did not move. Seizure onset: today. Context: occurred at home. Associated injury: The patient did not suffer any apparent associated injury. Current symptoms: headache, that is moderate. The patient has experienced similar episodes in the past, a few times. The patient has been recently seen at the [facility] Emergency Department, today, for similar complaints. Patient stated that she was seen earlier this morning for seizure. Stated that she has been off of her benzos and keppra for some time because she was in long term. Came back to ED because she had another seizure and is having a bad headache post seizure. Stated that the valium has not worked. 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 - Social history:: Smoking status: unknown. - Ebola Screening: : Patient denies travel to an Ebola-affected area in the 21 days before illness onset. ROS: 15:31 Eyes: Negative for injury, pain, redness, and discharge, ENT: Negative for injury, jr8 pain, and discharge, Neck: Negative for injury, pain, and swelling, Cardiovascular: Negative for chest pain, palpitations, and edema, Respiratory: Negative for shortness of breath, cough, wheezing, and pleuritic chest pain, Abdomen/GI: Negative for abdominal pain, nausea, vomiting, diarrhea, and constipation, Back: Negative for injury and pain, MS/Extremity: Negative for injury and deformity, Skin: Negative for injury, rash, and discoloration. 15:31 Neuro: Positive for headache, seizure activity. Exam: 15:31 Head/Face: Normocephalic, atraumatic. Eyes: Pupils equal round and reactive to light, jr8 extra-ocular motions intact. Lids and lashes normal. Conjunctiva and sclera are non-icteric and not injected. Cornea within normal limits. Periorbital areas with no swelling, redness, or edema. ENT: Nares patent. No nasal discharge, no septal abnormalities noted. Tympanic membranes are normal and external auditory canals are clear. Oropharynx with no redness, swelling, or masses, exudates, or evidence of obstruction, uvula midline. Mucous membranes moist. Neck: Trachea midline, no thyromegaly or masses palpated, and no cervical lymphadenopathy. Supple, full range of motion without nuchal rigidity, or vertebral point tenderness. No Meningismus. Cardiovascular: Regular rate and rhythm with a normal S1 and S2. No gallops, murmurs, or rubs. Normal PMI, no JVD. No pulse deficits. Respiratory: Lungs have equal breath sounds bilaterally, clear to auscultation and percussion. No rales, rhonchi or wheezes noted. No increased work of breathing, no retractions or nasal flaring. Abdomen/GI: Soft, non-tender, with normal bowel sounds. No distension or tympany. No guarding or rebound. No evidence of tenderness throughout. Back: No spinal tenderness. No costovertebral tenderness. Full range of motion. Skin: Warm, dry with normal turgor. Normal color with no rashes, no lesions, and no evidence of cellulitis. MS/ Extremity: Pulses equal, no cyanosis. Neurovascular intact. Full, normal range of motion. Neuro: Awake and alert, GCS 15, oriented to person, place, time, and situation. Cranial nerves II-XII grossly intact. Motor strength 5/5 in all extremities. Sensory grossly intact. Cerebellar exam normal. Normal gait. Vital Signs: 14:42 BP 148 / 95; Pulse 76; Resp 18; Temp 99.2(O); Pulse Ox 96% on R/A; tl3 15:13 BP 124 / 76; Pulse 71; Resp 18; Pulse Ox 98% ; tl3 15:51 BP 108 / 61; Pulse 80; Resp 16; Pulse Ox 99% on R/A; tl3 17:19 BP 135 / 78; Pulse 71; Resp 16; Pulse Ox 99% ; tl3 [place] Coma Score: 14:42 Eye Response: spontaneous(4). Verbal Response: oriented(5). Motor Response: obeys tl3 commands(6). Total: 15. MDM: 15:11 Patient medically screened. jr8 16:52 Data reviewed: vital signs, nurses notes, lab test result(s), and as a result, I will jr8 discharge patient. Data interpreted: Pulse oximetry: on room air is 99 %. Interpretation: normal. Counseling: I had a detailed discussion with the patient and/or guardian regarding: the historical points, exam findings, and any diagnostic results supporting the discharge/admit diagnosis, lab results, the need for outpatient follow up, a family practitioner, a neurologist, to return to the emergency department if symptoms worsen or persist or if there are any questions or concerns that arise at home. Response to treatment: the patient's symptoms have resolved after treatment. ED course: No seizures while in ED. Will start on Keppra. To f/u with PCP and neurology. To stop valium . 12/23 15:18 Order name: Basic Metabolic Panel; Complete Time: 16:12/23 15:18 Order name: CBC with Diff; Complete Time: 16:04 12/23 15:18 Order name: ETOH Level; Complete Time: 16:13 12/23 15:18 Order name: Hepatic Function; Complete Time: 16:13 12/23 15:18 Order name: PT-INR; Complete Time: 16:04 12/23 15:18 Order name: Urine Drug Screen; Complete Time: 16:49 jr12/23 16:45 Order name: Urine Dipstick--Ancillary (enter results); Complete Time: 16:58 ag 12/23 15:18 Order name: IV Saline Lock; Complete Time: 15:50 jr8 12/23 15:18 Order name: Labs collected and sent; Complete Time: 15:50 jr8 Administered Medications: 15:49 Drug: NS 0.9% 1000 ml Route: IV; Rate: 1000 ml; Site: right antecubital; Delivery: tl3 Primary tubing; 17:18 Follow up: IV Status: Completed infusion; IV Intake: 1000ml tl3 15:49 Drug: Keppra 1000 mg Route: IV; Rate: calculated rate; Site: right antecubital; tl3 Delivery: Primary tubing; 17:18 Follow up: Response: No adverse reaction tl3 17:21 Follow up: Response: No adverse reaction; IV Status: Completed infusion; IV Intake: tl3 100ml 15:49 Drug: Reglan 10 mg Route: IVP; Infused Over: 3 mins; Site: right antecubital; tl3 17:22 Follow up: Response: No adverse reaction tl3 15:50 Drug: Benadryl 25 mg Route: IVP; Infused Over: 3 mins; Site: right antecubital; tl3 17:18 Follow up: Response: No adverse reaction tl3 15:50 Drug: TORadol 30 mg Route: IVP; Infused Over: 3 mins; Site: right antecubital; tl3 17:18 Follow up: Response: Pain is decreased tl3 15:52 Drug: Phenergan 12.5 mg Route: IVP; Infused Over: 5 mins; Site: right antecubital; tl3 17:17 Follow up: Response: Nausea is decreased tl3 17:17 Drug: Potassium Chloride 40 mEq Route: PO; tl3 17:17 Follow up: Response: Medication administered at discharge. tl3 Disposition: 17:37 Co-signature as Attending Physician, Krishna Fields MD I agree with the assessment and kdr plan of care. Disposition: 12/23/17 16:59 Discharged to Home. Impression: Migraine, Epilepsy and recurrent seizures. - Condition is Stable. - Discharge Instructions: Migraine Headache, Seizure, Adult. - Prescriptions for Keppra 500 mg Oral Tablet - take 1 tablet by ORAL route every 12 hours; 20 tablet. Klonopin 1 mg Oral Tablet - take 1 tablet by ORAL route every 12 hours As needed; 20 tablet. - Medication Reconciliation Form, Thank You Letter, Antibiotic Education, Prescription Opioid Use form. - Follow up: Private Physician; When: 2 - 3 days; Reason: Recheck today's complaints, Continuance of care, Re-evaluation by your physician. Follow up: Kota Huang MD; When: 2 - 3 days; Reason: Recheck today's complaints, Continuance of care, Re-evaluation by your physician. - Problem is new. - Symptoms have improved. Signatures: Dispatcher [employer] EDND Krishna Fields MD MD [facility] Gerson Gutierrez PA PA jr8 Lala Corona RN RN tl3 Corrections: (The following items were deleted from the chart) 15:23 15:18 Urine Test ordered. jr8 tl3 17:21 16:59 12/23/2017 16:59 Discharged to Home. Impression: Migraine; Epilepsy and recurrent tl3 seizures. Condition is Stable. Forms are Medication Reconciliation Form, Thank You Letter, Antibiotic Education, Prescription Opioid Use. Follow up: Private Physician; When: 2 - 3 days; Reason: Recheck today's complaints, Continuance of care, Re-evaluation by your physician. Follow up: Kota Huang; When: 2 - 3 days; Reason: Recheck today's complaints, Continuance of care, Re-evaluation by your physician. Problem is new. Symptoms have improved. jr8
--- NOTE | 2017-12-23 17:00 | ER ---
Nurse's Notes [facility] Name: Kaycee Porter Age: 42 yrs Sex: Female : 1975 Arrival Date: 12/23/2017 Time: 14:20 Bed 26 Private MD: Carlos Alberto Garrido Diagnosis: Migraine;Epilepsy and recurrent seizures Presentation: 12/23 14:39 Presenting complaint: EMS states: headache, possible seizure, seen here last pm for tl3 same. Transition of care: patient was not received from another setting of care. Onset of symptoms was December 23, 2017. Risk Assessment: Do you want to hurt yourself or someone else? Patient reports no desire to harm self or others. Initial Sepsis Screen: Does the patient meet any 2 criteria? No. Patient's initial sepsis screen is negative. Does the patient have a suspected source of infection? No. Patient's initial sepsis screen is negative. Care prior to arrival: None. 14:39 Method Of Arrival: EMS: [facility] tl3 14:39 Acuity: KARLA 3 tl3 Triage Assessment: 14:42 General: Appears distressed, well groomed, well developed, well nourished, Behavior is tl3 appropriate for age, anxious. Pain: Complains of pain in headache. EENT: No signs and/or symptoms were reported regarding the EENT system. Neuro: No deficits noted. Level of Consciousness is awake, alert, obeys commands, Oriented to person, place, time, situation, Appropriate for age. Cardiovascular: Heart tones S1 S2 present Patient's skin is warm and dry. Respiratory: Airway is patent Respiratory effort is even, unlabored, Respiratory pattern is regular, symmetrical, Breath sounds are clear bilaterally. Respiratory: Reports cough that is productive. GI: No signs and/or symptoms were reported involving the gastrointestinal system. : No signs and/or symptoms were reported regarding the genitourinary system. Derm: No signs and/or symptoms reported regarding the dermatologic system. Musculoskeletal: No signs and/or symptoms reported regarding the musculoskeletal system. GRAD INTERN: 17:20 LMP N/A - Hysterectomy tl3 Historical: - Allergies: 14:41 Amoxicillin (Hives); tl3 14:41 Erythromycin (Hives); tl3 14:41 Vancomycin; tl3 - Home Meds: 14:41 BuSpar Oral 5 mg three times a day [Active]; Zoloft 200 mg Oral tab 1 tab once daily tl3 [Active]; - PMHx: 14:42 Anxiety; Bipolar disorder; cancer-ovarian; Depression; Hypertension; shasta; Overdose; tl3 Panic Attacks; R sided ovary mass; Schizophrenia; Tachycardia; - Immunization history:: Adult Immunizations up to date. - Social history:: Smoking status: unknown. - Ebola Screening: : Patient denies travel to an Ebola-affected area in the 21 days before illness onset. Screenin:44 Abuse screen: Denies threats or abuse. Nutritional screening: No deficits noted. tl3 Tuberculosis screening: No symptoms or risk factors identified. Fall Risk None identified. Assessment: 14:44 Reassessment: No changes from previously documented assessment. Patient is alert, tl3 oriented x 3, equal unlabored respirations, skin warm/dry/pink. pt shaky, states out of estrogen patch, c/o headache possible seizure hx this am. 15:13 Reassessment: No changes from previously documented assessment. Patient and/or family tl3 updated on plan of care and expected duration. Pain level reassessed. Patient is alert, oriented x 3, equal unlabored respirations, skin warm/dry/pink. family at bedside report possible seizure activity this am, pt reports pain behind her eyes, pulsing and left sided visual loss. 15:51 Reassessment: No changes from previously documented assessment. Patient and/or family tl3 updated on plan of care and expected duration. Pain level reassessed. Patient is alert, oriented x 3, equal unlabored respirations, skin warm/dry/pink. pt very agitated, lights dimmed, extra chair provided for family. 17:19 Reassessment: Patient appears in no apparent distress at this time. No changes from tl3 previously documented assessment. Patient and/or family updated on plan of care and expected duration. Pain level reassessed. Patient is alert, oriented x 3, equal unlabored respirations, skin warm/dry/pink. pt feeling much better. Vital Signs: 14:42 BP 148 / 95; Pulse 76; Resp 18; Temp 99.2(O); Pulse Ox 96% on R/A; tl3 15:13 BP 124 / 76; Pulse 71; Resp 18; Pulse Ox 98% ; tl3 15:51 BP 108 / 61; Pulse 80; Resp 16; Pulse Ox 99% on R/A; tl3 17:19 BP 135 / 78; Pulse 71; Resp 16; Pulse Ox 99% ; tl3 [place] Coma Score: 14:42 Eye Response: spontaneous(4). Verbal Response: oriented(5). Motor Response: obeys tl3 commands(6). Total: 15. ED Course: 14:20 Patient arrived in ED. tl3 14:21 Carlos Alberto Garrido is Private Physician. tl3 14:39 Lala Corona, RN is Primary Nurse. tl3 14:40 Triage completed. tl3 14:42 Arm band placed on right wrist. tl3 14:44 Patient has correct armband on for positive identification. Bed in low position. Call tl3 light in reach. Side rails up X 1. Pulse ox on. NIBP on. Door closed. Lights dimmed. Warm blanket given. 14:44 No provider procedures requiring assistance completed. tl3 15:11 [facility]. jr8 15:11 Krishna Fields MD is Attending Physician. jr8 16:59 Kota Huang MD is Referral Physician. jr8 17:19 IV discontinued, intact, bleeding controlled, No redness/swelling at site. Pressure tl3 dressing applied. 17:21 Seizure precautions initiated. tl3 Administered Medications: 15:49 Drug: NS 0.9% 1000 ml Route: IV; Rate: 1000 ml; Site: right antecubital; Delivery: tl3 Primary tubing; 17:18 Follow up: IV Status: Completed infusion; IV Intake: 1000ml tl3 15:49 Drug: Keppra 1000 mg Route: IV; Rate: calculated rate; Site: right antecubital; tl3 Delivery: Primary tubing; 17:18 Follow up: Response: No adverse reaction tl3 17:21 Follow up: Response: No adverse reaction; IV Status: Completed infusion; IV Intake: tl3 100ml 15:49 Drug: Reglan 10 mg Route: IVP; Infused Over: 3 mins; Site: right antecubital; tl3 17:22 Follow up: Response: No adverse reaction tl3 15:50 Drug: Benadryl 25 mg Route: IVP; Infused Over: 3 mins; Site: right antecubital; tl3 17:18 Follow up: Response: No adverse reaction tl3 15:50 Drug: TORadol 30 mg Route: IVP; Infused Over: 3 mins; Site: right antecubital; tl3 17:18 Follow up: Response: Pain is decreased tl3 15:52 Drug: Phenergan 12.5 mg Route: IVP; Infused Over: 5 mins; Site: right antecubital; tl3 17:17 Follow up: Response: Nausea is decreased tl3 17:17 Drug: Potassium Chloride 40 mEq Route: PO; tl3 17:17 Follow up: Response: Medication administered at discharge. tl3 Intake: 17:18 IV: 1000ml; Total: 1000ml. tl3 17:21 IV: 100ml; Total: 1100ml. tl3 Outcome: 16:59 Discharge ordered by . nikita 17:19 Discharged to home ambulatory. tl3 17:19 Condition: good 17:19 Discharge instructions given to patient, family, Instructed on discharge instructions, follow up and referral plans. medication usage, Demonstrated understanding of instructions, follow-up care, medications, Prescriptions given X 2. 17:21 Patient left the ED. tl3 Signatures: Gerson Gutierrez PA PA jr8 Lowrey, Tammy RN RN tl3 Corrections: (The following items were deleted from the chart) 17:22 17:18 Response: No adverse reaction tl3 tl3
[2017-12-23] MEDS ORDERED: POTASSIUM CL SA 10 MEQ TAB PO ONE (17:16)
[2017-12-23 17:34] VITALS: TEMP 99.2
[2017-12-23 17:36] VITALS: O2SAT 99
[2017-12-23 17:37] VITALS: BP 135/78
== END 2017-12-23 17:21 | disposition home or self-care (01) ==
LOC: ER 14:17
DX: G40.802 Other epilepsy, not intractable, without status epilepticus (principal); I10 Essential (primary) hypertension; F31.9 Bipolar disorder, unspecified; F20.9 Schizophrenia, unspecified; Z85.43 Personal history of malignant neoplasm of ovary; Z88.1 Allergy status to other antibiotic agents; Z88.3 Allergy status to other anti-infective agents
CPT/HCPCS: 36415; 80048; 80076; 80307; 80320; 81003; 85025; 85610; 96365; 96366; 96375; 99284; J1953; J2550; J2765; J7030